=== PATIENT | male | born 1945 | race Caucasian/White ===

== ENCOUNTER → 2023-06-21 | Outpatient (CLI) | payer MEDICARE ==
[2023-06-21 11:44] LABS: Basophils # (A) 0.07 X 10*3/uL (0.00-0.10); Basophils % (A) 0.7 %; Eosinophils # (A) 0.33 X 10*3/uL (0.04-0.35); Eosinophils % (A) 3.4 %; HGB 13.4 g/dL (13.0-17.0); Lymphocytes # (A) 3.06 X 10*3/uL (0.90-5.00); Lymphocytes % (A) 31.2 %; MCH 27.5 pg (27.0-32.0); MCHC 31.9 g/dL (32.0-37.0); MCV 86.2 FL (80.0-97.0); Monocytes # (A) 0.84 X 10*3/uL (0.20-1.00); Monocytes % (A) 8.6 %; NRBC Per 100 WBC 0 X 10*3/uL (0.00-0.01); Neutrophils # (A) 5.46 X 10*3/uL (1.80-7.70); Neutrophils % (A) 55.6 %; Platelet Count 286 X 10*3/uL (140-440); RBC 4.87 X 10*6/uL (4.40-5.60); RDW 16.3 % (11.5-14.5); WBC 9.81 X 10*3/uL (4.50-10.00)
[2023-06-21 12:05] LABS: ALT 13 U/L (10-49); AST 17 U/L (14-35); Alkaline Phosphatase 105 U/L (41-126); BUN/Creat Ratio 26.71 Ratio (12.00-20.00); Blood Urea Nitrogen 18.7 mg/dL (9.0-27.0); Calcium 9.4 mg/dL (8.7-10.3); Chloride 103 mmol/L (96-109); Chol/HDL Ratio 2.05 Ratio; Globulin 2.1 g/dL (1.6-3.3); Glucose 100 mg/dL (70-110); LDL Cholesterol,Calculated 72.9 mg/dL (0.0-131.0); Potassium 4.1 mmol/L (3.5-5.5); Sodium 138 mmol/L (135-145); Total Bilirubin 0.4 mg/dL (0.3-1.2); Total Protein 6.1 g/dL (6.2-8.2); VLDL Calculation 18.66 mg/dL (5.00-40.00)
== END | disposition home or self-care (01) ==
LOC: LABWHC1 07:16
PROVIDERS: ATTEND Nurse Practitioner Family
DX: C84.00 Mycosis fungoides, unspecified site (principal)
CPT/HCPCS: 36415; 80053; 80061; 85025

== ENCOUNTER → 2024-02-29 | Outpatient (CLI) | payer MEDICARE ==
[2024-02-29 10:47] LABS: Basophils % (A) 1.1 %; Eosinophils # (A) 0.26 X 10*3/uL (0.04-0.35); Eosinophils % (A) 2.8 %; HCT 45.1 % (39.6-50.0); HGB 14.2 g/dL (13.0-17.0); Lymphocytes # (A) 2.57 X 10*3/uL (0.90-5.00); Lymphocytes % (A) 27.4 %; MCH 27.5 pg (27.0-32.0); MCHC 31.5 g/dL (32.0-37.0); MCV 87.4 FL (80.0-97.0); Mean Platelet Volume 10.2 FL (9.5-12.2); Monocytes # (A) 0.62 X 10*3/uL (0.20-1.00); Monocytes % (A) 6.6 %; NRBC Per 100 WBC 0 X 10*3/uL (0.00-0.01); Neutrophils # (A) 5.79 X 10*3/uL (1.80-7.70); Neutrophils % (A) 61.7 %; Platelet Count 213 X 10*3/uL (140-440); RBC 5.16 X 10*6/uL (4.40-5.60); RDW 16.8 % (11.5-14.5); WBC 9.38 X 10*3/uL (4.50-10.00)
[2024-02-29 10:52] LABS: ALT 11 U/L (10-49); AST 17 U/L (14-35); Albumin 4.3 g/dL (3.8-4.9); Albumin/Globulin Ratio 2.15 Ratio (1.60-3.17); Alkaline Phosphatase 104 U/L (41-126); Bilirubin, Conjugated <0.20 mg/dL (0.20-0.40); Bilirubin,Unconjugated >0.30 mg/dL (0.20-1.00); Chol/HDL Ratio 1.91 Ratio; LDL Cholesterol,Calculated 64.5 mg/dL (0.0-131.0); Total Bilirubin 0.5 mg/dL (0.3-1.2); Total Protein 6.3 g/dL (6.2-8.2); VLDL Calculation 16.14 mg/dL (5.00-40.00)
== END | disposition home or self-care (01) ==
LOC: LABWHC1 07:02
PROVIDERS: ATTEND Dermatology
CPT/HCPCS: 36415; 80061; 80076; 85025

== ENCOUNTER → 2024-06-11 | Outpatient (CLI) | payer MEDICARE ==
--- NOTE | 2024-06-11 14:00 | CTL ---
EXAMINATION TYPE: CT Low Dose Lung DATE OF EXAM: 06/11/2024 9:53 AM COMPARISON: Radiograph 06/02/2024 CLINICAL INDICATION: Male, 78 years old with history of Z12.2 SCREENING LUNG CA F17.241 CURRENT SMOKE R, h/o tobacco use pt states he has 3 cigarettes per day, History of tobacco use. Current smoker 20 p ack-year history TECHNIQUE: Low dose computed tomography scan was performed through the chest at 1 mm thick sections a nd reconstructed images in multiple planes at 1 mm and [address] DLP: 47.9 mGycm, CT CTDI: 1.4 mGy, Automated exposure control for dose reduction was used. CT DIAGNOSTIC QUALITY: Satisfactory FINDINGS: The heart is normal size with small anterior pericardial effusion. Three-vessel coronary artery calci fications are present. Ectatic ascending aorta 3.5 cm. [id number] atherosclerotic arch and descending thoracic aortic calcifications. No thoracic lymphadenopathy by size criteria. Multiple subpleural opacities some of which are more linear and some of which are more focal at the l benton bases. For example: * 7 mm posterior left lower lobe axial image 166. * 4 mm posterior left lower lobe axial image 183. 1.4 cm posterior left base axial image 258. * 1.6 cm posterior left base, axial image 257. * 1.2 cm posteromedial right lung base axial image 236. Additional pulmonary nodules include: * 4 mm posterior right upper lobe pulmonary nodule, axial image 40. * 5 mm anterior left midlung pulmonary nodule, axial image 104. * Irregular opacity posterior right midlung 1.1 cm, axial image 116. Suggestion of noncalcified left-sided pleural plaques measuring up to 1.8 cm wide, for example, axial image 106, 114, 119, and 135. There is moderate diffuse bronchial wall thickening and bibasilar bronchiectasis. Moderate emphysema. Visualized upper abdomen shows no gross abnormality. Bones: No osseous destructive process. IMPRESSION: 1. Lung RADS Category 4B (very suspicious, >15% chance of malignancy); scattered pulmonary nodules, f ocal subpleural opacities, and some left-sided pleural plaques measuring up to 1.8 cm. Short interval follow-up advised. The presence of pleural plaques may indicate prior asbestos exposure. 2. COPD with moderate to advanced emphysema, bibasilar pleural parenchymal scarring and bibasilar bro nchiectasis. Recommend smoking cessation. 3. Three-vessel coronary artery calcifications. CT LUNG RAD AND CT CHEST RECOMMENDATION: Lung-Rad 4B or 4X Very Suspicious: Follow-up Chest CT with o r without contrast or PET/CT and/or tissue sampling. PET/CT may be used when there is a > 8 mm solid component. S Modifier (other clinically significant findings): None [facility], , 06/11/2024 1:58 PM
== END | disposition home or self-care (01) ==
LOC: RADCTMAIN 09:07
PROVIDERS: ATTEND Internal Medicine
DX: Z12.2 Encounter for screening for malignant neoplasm of respiratory organs (principal); J44.9 Chronic obstructive pulmonary disease, unspecified; J43.9 Emphysema, unspecified; F17.210 Nicotine dependence, cigarettes, uncomplicated; J47.9 Bronchiectasis, uncomplicated; I25.10 Atherosclerotic heart disease of native coronary artery without angina pectoris
CPT/HCPCS: 71271

== ENCOUNTER 2024-08-13 04:43 | Inpatient (IN) | payer MEDICARE ==
--- NOTE | 2024-08-13 05:37 | ED ---
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 History is limited by acuity of condition. States has had about a week of lower abdominal pain that suddenly worsened this morning and became focused on the lower abdomen. Denies N/V/Diarrhea. Has been having regular BMs. No fevers or chills. No chest pain or SHAZIA. No prior surgical hx. - Related Data Home Medications Medication Instructions Recorded Confirmed Acitretin [Soriatane] 25 mg PO MOWEFR 08/13/24 08/13/24 Albuterol Sulfate [Albuterol 2 puff INHALATION RT-QID PRN 08/13/24 08/13/24 Sulfate Hfa] Ezetimibe [Zetia] 10 mg PO DAILY 08/13/24 08/13/24 Fluticasone Propion/Salmeterol 1 puff INHALATION RT-BID 08/13/24 08/13/24 [Fluticasone-Salmeterol 250-50] Losartan/Hydrochlorothiazide 1 tab PO DAILY 08/13/24 08/13/24 [Hyzaar 100-12.5 Tablet] Tamsulosin [Flomax] 0.4 mg PO DAILY 08/13/24 08/13/24 Theophylline 12 Hour [Sorin-Dur] 300 mg PO BID 08/13/24 08/13/24 Tiotropium [place] [Spiriva] 1 puff INHALATION RT-DAILY 08/13/24 08/13/24 atenoloL [Tenormin] 12.5 mg PO DAILY 08/13/24 08/13/24 predniSONE 5 mg PO DAILY 08/13/24 08/13/24 Allergies Allergy/AdvReac Type Severity Reaction Status Date / Time No Known Allergies Allergy Verified 08/13/24 09:57 Review of Systems ROS Statement: Those systems with pertinent positive or pertinent negative responses have been documented in the HPI. ROS Other: All systems not noted in ROS Statement are negative. Past Medical History Past Medical History: Cancer, COPD History of Any Multi-Drug Resistant Organisms: None Reported Past Surgical History: Tonsillectomy Additional Past Surgical History / Comment(s): Deviated Septum Repair in the Past Psychological History: No Psychological Hx Reported Smoking Status: Light tobacco smoker Past Alcohol Use History: None Reported Past Drug Use History: None Reported General Exam - General Exam Comments Initial Comments: PE: CONSTITUTIONAL: No apparent distress, ill appearing SKIN: Warm, dry, no jaundice, hives or petechiae EYES: Pupils are equally round, extraocular movements intact without nystagmus, clear conjunctiva, non-icteric sclera HENT: Normocephalic, atraumatic, moist mucus membranes, oropharynx clear without exudates NECK: , Full range of motion, normal appearance PULMONARY: Clear to auscultation without wheezes, rhonchi, or rales, normal excursion, no accessory muscle use and no stridor CARDIOVASCULAR: Regular rate, rhythm, normal S1 and S2. No appreciated murmurs, rubs or gallops. Strong radial and DP pulses with intact distal perfusion. No lower extremity edema GASTROINTESTINAL: Firm, hypoactive bowel sounds, pulsatile abdominal mass to the left, TTP GENITOURINARY: MUSCULOSKELETAL: Extremities have no gross deformity, no edema, redness, or swelling. No calf swelling NEUROLOGIC:_a/o x 3, GCS 15, normal mentation and speech. Moves all extremities x 4 without motor or sensory deficit PSYCHIATRIC:_normal mood and affect, thought process is clear and linear Limitations: no limitations Course Vital Signs 08/13/24 08/13/24 08/13/24 04:44 05:34 05:59 Temperature 97.4 F L Pulse Rate 90 98 92 Respiratory 20 17 Rate Blood Pressure 119/79 125/97 122/94 O2 Sat by Pulse 93 L 95 96 Oximetry 08/13/24 08/13/24 08/13/24 06:15 06:20 06:25 Temperature Pulse Rate 96 100 96 Respiratory 17 17 16 Rate Blood Pressure 57/40 74/47 89/55 O2 Sat by Pulse 99 98 96 Oximetry 08/13/24 08/13/24 08/13/24 06:34 06:39 06:50 Temperature 96.5 F L Pulse Rate 92 84 Respiratory 17 16 Rate Blood Pressure 62/42 77/59 O2 Sat by Pulse 96 95 Oximetry 08/13/24 08/13/24 06:52 06:57 Temperature Pulse Rate 98 98 Respiratory 17 16 Rate Blood Pressure 80/59 92/67 O2 Sat by Pulse 98 Oximetry - Reevaluation(s) Reevaluation #1: Bedside ultrasound showed concerns for ruptured AAA, CT angio of the abdomen pelvis was ordered, Dr. Paulson was contacted, he is aware of patient and on his way 08/13/24 19:44 Reevaluation #2: Patient on esmolol drip, had episode hypotension, 2 units PRBCs at O- ordered. 08/13/24 06:30 EKG Findings - EKG Comments: EKG Findings:: Sinus rhythm, artifact present limiting interpretation, normal axis, normal intervals, no clear ST elevations or depressions, no arrhythmia Medical Decision Making - Medical Decision Making Was pt. sent in by a medical professional or institution (, PA, VISUAL INSPECTOR, urgent care, hospital, or [facility]...) When possible be specific @ -No Did you speak to anyone other than the patient for history (EMS, parent, family, police, friend...)? What history was obtained from this source @ -No Did you review nursing and triage notes (agree or disagree)? Why? @ -I reviewed and agree with nursing and triage notes Were old charts reviewed (outside hosp., previous admission, EMS record, old EKG, old radiological studies, urgent care reports/EKG's, [facility] records)? Report findings @ -Medical records were not reviewed Differential Diagnosis (chest pain, altered mental status, abdominal pain women, abdominal pain men, vaginal bleeding, weakness, fever, dyspnea, syncope, headache, dizziness, GI bleed, back pain, seizure, CVA, palpatations, mental health, musculoskeletal)? @Differential Abdominal Pain Men: Appendicitis, cholecystitis, diverticulosis, ischemic bowel, pancreatitis, hepatitis, UTI, gastroenteritis, AAA, incarcerated hernia, bowel obstruction, constipation, inflammatory bowel, hepatitis, peptic ulcer disease, splenic infarction, perforated viscus, testicular torsion, this is not meant to be an all-inclusive list EKG interpreted by me (3pts min.). @ -As above X-rays interpreted by me (1pt min.). @ -None done CT interpreted by me (1pt min.). @I personally reviewed CTA, appears to show ruptured abdominal aortic aneurysm I agree with radiologist interpretation U/S interpreted by me (1pt. min.). @ -None done What testing was considered but not performed or refused? (CT, X-rays, U/S, labs)? Why? @ -None What meds were considered but not given or refused? Why? @Phenylephrine and norepinephrine were considered for further blood pressure support related to triggering on however after further discussion with Dr. Paulson these were held Did you discuss the management of the patient with other professionals (professionals i.e. , PA, VISUAL INSPECTOR, lab, RT, psych nurse, social sciences department chair, test engine operator, te acher, loan workout officer, pillowcase sewer)? Give summary Case discussed w/ Dr. Paulson, Vacular surgery, recommended esmolol gtt with goal HR <100, arrived to ED shortly after page, took patient to OR for repair 2 was smoking cessation discussed for >3mins.? @ -No Was critical care preformed (if so, how long)? @ -Yes 45 minutes Were there social determinants of health that impacted care today? How? (Ho melessness, low income, unemployed, alcoholism, drug addiction, transportation, low edu. Level, literacy, decrease access to med. care, fdc, rehab)? @ -No Was there de-escalation of care discussed even if they declined (Discuss DNR or withdrawal of care, Hospice)? @no What co-morbidities impacted this encounter? (DM, HTN, Smoking, COPD, CAD, Cancer, CVA, ARF, Chemo, Hep., AIDS, mental health diagnosis, sleep apnea, morbid obesity)? @ -None Was patient admitted / discharged? Hospital course, mention meds given and route, prescriptions, significant lab abnormalities, going to OR and other pert inent info. 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 On my evaluation patient has visible puslatile abdominal mass. Bedside ultrasound showed likely ruptured triple A. Vascular surgery was paged immediately, CTA was ordered and patient moved to trauma bay. CT showed likely ruptured triple A. Patient started on esmolol gtt and had episode of hypotension. Pt bolused IV fluids and 2 units PRBCs out of concern for hemorrhagic shock. Updated pt and son to findings and ongoing plan of care with anticipated arrival of vascular surgeon. Dr. Paulson arrived shortly after and took patient to OR for emergent endovascular repair. Case discussed with DORA García and Dr. Cowan ICU, patient accepted for admission to ICU. Undiagnosed new problem with uncertain prognosis? @ -No Drug Therapy requiring intensive monitoring for toxicity (Heparin, Nitro, Insulin, Cardizem)? yes esmolol Were any procedures done? @ -No Diagnosis/symptom? @Ruptured AAA Acute, or Chronic, or Acute on Chronic? @ -acute Uncomplicated (without systemic symptoms) or Complicated (systemic symptoms)? @complicated Side effects of treatment? @ -No Exacerbation, Progression, or Severe Exacerbation? @ -No Poses a threat to life or bodily function? How? (Chest pain, [place], [place], pneumonia, PE, COPD, DKA, ARF, appy, cholecystitis, CVA, Diverticulitis, Homicidal, Suicidal, threat to staff... and all critical care pts) @Yes - Lab Data Result diagrams: 08/13/24 18:05 08/13/24 10:19 Lab Results 08/13/24 08/13/24 08/13/24 Range/Units 05:45 05:45 05:45 WBC 15.6 H (3.8-10.6) k/uL RBC 4.46 (4.30-5.90) m/uL Hgb 11.8 L (13.0-17.5) gm/dL Hct 37.9 L (39.0-53.0) % MCV 85.0 (80.0-100.0) fL MCH 26.5 (25.0-35.0) pg MCHC 31.1 (31.0-37.0) g/dL RDW 14.5 (11.5-15.5) % Plt Count 421 (150-450) k/uL MPV 7.6 Neutrophils % 87 % Lymphocytes % 8 % Monocytes % 4 % Eosinophils % 1 % Basophils % 0 % Neutrophils # 13.5 H (1.3-7.7) k/uL Lymphocytes # 1.3 (1.0-4.8) k/uL Monocytes # 0.6 (0-1.0) k/uL Eosinophils # 0.1 (0-0.7) k/uL Basophils # 0.0 (0-0.2) k/uL Hypochromasia Slight PT 11.6 (10.0-12.5) sec INR 1.1 (<1.2) APTT 22.7 (22.0-30.0) sec Sodium 135 L (137-145) mmol/L Potassium 4.0 (3.5-5.1) mmol/L Chloride 101 (98-107) mmol/L Carbon Dioxide 24 (22-30) mmol/L Anion Gap 10 mmol/L BUN 23 H (9-20) mg/dL Creatinine 0.45 L (0.66-1.25) mg/dL Est GFR (CKD-EPI)AfAm >90 (>60 ml/min/1.73 sqM) Est GFR (CKD-EPI)NonAf >90 (>60 ml/min/1.73 sqM) Glucose 182 H (74-99) mg/dL Plasma Lactic Acid Osman (0.7-2.0) mmol/L Calcium 8.9 (8.4-10.2) mg/dL Total Bilirubin 0.7 (0.2-1.3) mg/dL AST 18 (17-59) U/L ALT 12 (4-49) U/L Alkaline Phosphatase 87 (38-126) U/L Troponin I (0.000-0.034) ng/mL Total Protein 6.0 L (6.3-8.2) g/dL Albumin 3.4 L (3.5-5.0) g/dL Amylase 34 (30-110) U/L Lipase 30 (23-300) U/L Blood Type Blood Type Confirm Blood Type Recheck Bld Type Recheck Status Antibody Screen Crossmatch Spec Expiration Date 08/13/24 08/13/24 08/13/24 Range/Units 05:45 05:45 05:45 WBC (3.8-10.6) k/uL RBC (4.30-5.90) m/uL Hgb (13.0-17.5) gm/dL Hct (39.0-53.0) % MCV (80.0-100.0) fL MCH (25.0-35.0) pg MCHC (31.0-37.0) g/dL RDW (11.5-15.5) % Plt Count (150-450) k/uL MPV Neutrophils % % Lymphocytes % % Monocytes % % Eosinophils % % Basophils % % Neutrophils # (1.3-7.7) k/uL Lymphocytes # (1.0-4.8) k/uL Monocytes # (0-1.0) k/uL Eosinophils # (0-0.7) k/uL Basophils # (0-0.2) k/uL Hypochromasia PT (10.0-12.5) sec INR (<1.2) APTT (22.0-30.0) sec Sodium (137-145) mmol/L Potassium (3.5-5.1) mmol/L Chloride (98-107) mmol/L Carbon Dioxide (22-30) mmol/L Anion Gap mmol/L BUN (9-20) mg/dL Creatinine (0.66-1.25) mg/dL Est GFR (CKD-EPI)AfAm (>60 ml/min/1.73 sqM) Est GFR (CKD-EPI)NonAf (>60 ml/min/1.73 sqM) Glucose (74-99) mg/dL Plasma Lactic Acid Osman 1.8 (0.7-2.0) mmol/L Calcium (8.4-10.2) mg/dL Total Bilirubin (0.2-1.3) mg/dL AST (17-59) U/L ALT (4-49) U/L Alkaline Phosphatase (38-126) U/L Troponin I <0.012 (0.000-0.034) ng/mL Total Protein (6.3-8.2) g/dL Albumin (3.5-5.0) g/dL Amylase (30-110) U/L Lipase (23-300) U/L Blood Type Blood Type Confirm B Positive Blood Type Recheck Bld Type Recheck Status Antibody Screen Crossmatch Spec Expiration Date 08/13/24 Range/Units 05:50 WBC (3.8-10.6) k/uL RBC (4.30-5.90) m/uL Hgb (13.0-17.5) gm/dL Hct (39.0-53.0) % MCV (80.0-100.0) fL MCH (25.0-35.0) pg MCHC (31.0-37.0) g/dL RDW (11.5-15.5) % Plt Count (150-450) k/uL MPV Neutrophils % % Lymphocytes % % Monocytes % % Eosinophils % % Basophils % % Neutrophils # (1.3-7.7) k/uL Lymphocytes # (1.0-4.8) k/uL Monocytes # (0-1.0) k/uL Eosinophils # (0-0.7) k/uL Basophils # (0-0.2) k/uL Hypochromasia PT (10.0-12.5) sec INR (<1.2) APTT (22.0-30.0) sec Sodium (137-145) mmol/L Potassium (3.5-5.1) mmol/L Chloride (98-107) mmol/L Carbon Dioxide (22-30) mmol/L Anion Gap mmol/L BUN (9-20) mg/dL Creatinine (0.66-1.25) mg/dL Est GFR (CKD-EPI)AfAm (>60 ml/min/1.73 sqM) Est GFR (CKD-EPI)NonAf (>60 ml/min/1.73 sqM) Glucose (74-99) mg/dL Plasma Lactic Acid Osman (0.7-2.0) mmol/L Calcium (8.4-10.2) mg/dL Total Bilirubin (0.2-1.3) mg/dL AST (17-59) U/L ALT (4-49) U/L Alkaline Phosphatase (38-126) U/L Troponin I (0.000-0.034) ng/mL Total Protein (6.3-8.2) g/dL Albumin (3.5-5.0) g/dL Amylase (30-110) U/L Lipase (23-300) U/L Blood Type B Positive Blood Type Confirm Blood Type Recheck No Previous Record Bld Type Recheck Status CABO Indicated Antibody Screen NEGATIVE Crossmatch See Detail Spec Expiration Date 08/16/20242356 Disposition Clinical Impression: Ruptured abdominal aortic aneurysm (AAA) Disposition: ADMITTED IP TO THIS [facility] Condition: Critical
[2024-08-13] MEDS: MORPHINE SULFATE 4 MG/ML SYRINGE IVP STA (05:44)
[2024-08-13] MEDS: ONDANSETRON 4 MG/2 ML VIAL IVP STA (05:44)
[2024-08-13 05:51] LABS: Basophils % (A) 0 %; Eosinophils # (A) 0.1 k/uL (0-0.7); Eosinophils % (A) 1 %; HCT 37.9 % (39.0-53.0); HGB 11.8 gm/dL (13.0-17.5); Hypochromasia Slight; Lymphocytes # (A) 1.3 k/uL (1.0-4.8); Lymphocytes % (A) 8 %; MCH 26.5 pg (25.0-35.0); MCHC 31.1 g/dL (31.0-37.0); Mean Platelet Volume 7.6; Monocytes # (A) 0.6 k/uL (0-1.0); Monocytes % (A) 4 %; Neutrophils # (A) 13.5 k/uL (1.3-7.7); Neutrophils % (A) 87 %; Platelet Count 421 k/uL (150-450); RBC 4.46 m/uL (4.30-5.90); RDW 14.5 % (11.5-15.5); WBC 15.6 k/uL (3.8-10.6)
[2024-08-13] MEDS: LACTATED RINGERS 1,000 ML IV ONE (05:59)
[2024-08-13 06:00] LABS: ALT 12 U/L (4-49); AST 18 U/L (17-59); African American GFR (CKD) >90 (>60 ml/min/1.73 sqM); Albumin 3.4 g/dL (3.5-5.0); Alkaline Phosphatase 87 U/L (38-126); Amylase 34 U/L (30-110); Anion Gap 10 mmol/L; Blood Urea Nitrogen 23 mg/dL (9-20); Calcium 8.9 mg/dL (8.4-10.2); Carbon Dioxide 24 mmol/L (22-30); Chloride 101 mmol/L (98-107); Glucose 182 mg/dL (74-99); Lipase 30 U/L (23-300); Non-African American GFR(CKD) >90 (>60 ml/min/1.73 sqM); Sodium 135 mmol/L (137-145); Total Bilirubin 0.7 mg/dL (0.2-1.3)
[2024-08-13] MEDS: HYDROmorphone 1 MG/ML 1 ML SYRINGE IVP STA (06:12)
[2024-08-13] MEDS: ESMOLOL IN SODIUM CHLORIDE PMX 2.5 GM in SALINE 1 250ML.BAG IV SCH (06:16)
[2024-08-13 06:18] LABS: INR 1.1 (<1.2); Partial Thromboplastin Time 22.7 sec (22.0-30.0); Prothrombin Time 11.6 sec (10.0-12.5)
--- NOTE | 2024-08-13 06:32 | CT ---
EXAM: CT Chest Without and With Intravenous Contrast CLINICAL HISTORY: ITS.REASON CT Reason: ruptured triple A TECHNIQUE: Axial computed tomographic images of the chest without and with intravenous contrast. This CT exam was performed using one or more of the following dose reduction techniques: automated exposure control, adjustment of the mA and/or kV according to patient size, and/or use of iterative reconstruction technique. COMPARISON: No relevant prior studies available. FINDINGS: Trachea: Debris within the trachea which may relate to infection/aspiration changes. Pulmonary arteries: No evidence of pulmonary embolism within the pulmonary outflow tract or proximal branches. Aorta: No evidence of aortic aneurysm within the chest or subsequent branches. Lungs: Prominent bronchiectasis noted within the lungs, most notably within the lower lobes. Severe upper lobe prominent centrilobular emphysema. Patient may qualify for low-dose lung cancer screening CTs. Left lower lobe granuloma. No consolidation. Pleural space: Unremarkable. No significant effusion. No pneumothorax. Heart: Coronary artery calcifications. No cardiomegaly. No significant pericardial effusion. No evidence of RV dysfunction. Bones/joints: No acute fracture. No dislocation. Soft tissues: Unremarkable. Lymph nodes: Unremarkable. No enlarged lymph nodes. IMPRESSION: 1. No evidence of aortic aneurysm within the chest or subsequent branches. 2. Severe upper lobe prominent centrilobular emphysema. Patient may qualify for low-dose lung cancer screening CTs. 3. No other acute findings. 4. Incidental findings as described. EXAM: CT Abdomen and Pelvis With Runoff to the Lower Extremities With Intravenous Contrast CLINICAL HISTORY: ITS.REASON CT Reason: ruptured triple A TECHNIQUE: Axial computed tomographic images of the abdomen, pelvis and lower extremities with intravenous contrast. CTDI is 100 mGy and DLP is 1074.2 mGy-cm. This CT exam was performed using one or more of the following dose reduction techniques: automated exposure control, adjustment of the mA and/or kV according to patient size, and/or use of iterative reconstruction technique. COMPARISON: No relevant prior studies available. FINDINGS: VASCULATURE: Aorta: Infrarenal abdominal aortic aneurysm measuring 11.4 x 11.8 cm in luminal cross-sectional diameter with prominent concentric atherosclerotic plaque and adjacent stranding. Findings are favored to relate to rupture given large hematoma in the right retroperitoneal space. Recommend urgent surgical consultation. No dissection. Celiac trunk and mesenteric arteries: No acute findings. No occlusion or significant stenosis. Renal arteries: No acute findings. No occlusion or significant stenosis. Right iliac arteries: No acute findings. No occlusion or significant stenosis. Right femoral/popliteal arteries: Nondiagnostic. Right calf/foot arteries: Nondiagnostic. Left iliac arteries: No acute findings. No occlusion or significant stenosis. Left femoral/popliteal arteries: Nondiagnostic. Left calf/foot arteries: Nondiagnostic. Lung bases: No evidence of pulmonary embolism within the pulmonary outflow tract or proximal branches. Prominent bronchiectasis noted within the lungs, most notably within the lower lobes. Severe upper lobe prominent centrilobular emphysema. Patient may qualify for low-dose lung cancer screening CTs. Left lower lobe granuloma. No consolidation. Heart: Coronary artery calcifications. Mediastinum: Debris within the trachea which may relate to infection/aspiration changes. ABDOMEN: Liver: Unremarkable. No mass. Gallbladder and bile ducts: Unremarkable. No calcified stones. No ductal dilation. Pancreas: Unremarkable. No ductal dilation. No mass. Spleen: Unremarkable. No splenomegaly. Adrenals: Unremarkable. No mass. Kidneys and ureters: Unremarkable. No hydronephrosis. No solid mass. Stomach and bowel: No evidence of bowel obstruction. No mucosal thickening. PELVIS: Appendix: No findings to suggest acute appendicitis. Bladder: Unremarkable. No mass. Reproductive: Unremarkable as visualized. ABDOMEN, PELVIS and LOWER EXTREMITIES: Intraperitoneal space: Mild dependent free fluid noted in the pelvis which appears to be simple in nature with additional simple mesenteric ascites. No free air. Bones/joints: Contrast-enhanced imaging was only obtained to the level of the knees with noncontrast imaging extending to the ankles. This limits evaluation of the lower extremities. Degenerative changes in the spine. No acute fracture. No dislocation. Soft tissues: Unremarkable. Lymph nodes: Unremarkable. No enlarged lymph nodes. Other findings: Mild celiac axis ostial stenosis. IMPRESSION: 1. Contrast-enhanced imaging was only obtained to the level of the knees with noncontrast imaging extending to the ankles. This limits evaluation of the lower extremities. 2. Infrarenal abdominal aortic aneurysm measuring 11.4 x 11.8 cm in luminal cross-sectional diameter with prominent concentric atherosclerotic plaque and adjacent stranding. Findings are favored to relate to rupture given large hematoma in the right retroperitoneal space. Recommend urgent surgical consultation. 3. Mild dependent free fluid noted in the pelvis which appears to be simple in nature with additional simple mesenteric ascites. 4. Severe upper lobe prominent centrilobular emphysema. Patient may qualify for low-dose lung cancer screening CTs. 5. No other acute findings. 6. Incidental findings as described. <MYCVCSECTION> Communications: 08/13/24 06:35 Call Doctor Regarding Above results, called Dr. Amaya on 08/13 06:35 (-04:00)
[2024-08-13] MEDS ORDERED: NALOXONE 0.4 MG/ML 1 ML VIAL IV PRN (06:51)
[2024-08-13] MEDS ORDERED: MORPHINE SULFATE 4 MG/ML SYRINGE IV PRN (06:51)
[2024-08-13] MEDS ORDERED: Magnesium Replacement Protocol 1 EACH MISC MISCELLANE PRN (06:51)
[2024-08-13] MEDS ORDERED: Potassium Replacement Protocol 1 EACH MISC MISCELLANE PRN (06:51)
[2024-08-13] MEDS ORDERED: LORazepam 2 MG/ML INJ IV PRN (06:51)
[2024-08-13] MEDS ORDERED: Phosphorus Replacement Protoco 1 EACH MISC MISCELLANE PRN (06:51)
[2024-08-13] MEDS ORDERED: VASOPRESSIN 20 UNIT/ML 1 ML VIAL ONE (07:00)
[2024-08-13] MEDS ORDERED: EPINEPHrine 10 ML SYRINGE (0.1 MG/ML) ONE (07:00)
[2024-08-13] MEDS ORDERED: MIDAZOLAM 2 MG/2 ML VIAL ONE (07:00)
[2024-08-13] MEDS ORDERED: PHENYLEPHRINE 10 MG/ML VIAL ONE (07:00)
[2024-08-13] MEDS ORDERED: ESMOLOL 100 MG/10 ML VIAL ONE (07:00)
[2024-08-13] MEDS ORDERED: ALBUMIN HUMAN 5% (25gm) 500 ML VIAL IVPB ONE (07:00)
[2024-08-13] MEDS ORDERED: HEPARIN SODIUM,PORCINE 5,000 UNIT/ML 1 ML VIAL ONE (07:00)
--- NOTE | 2024-08-13 07:07 | P.GSHP ---
History of Present Illness H&P Date: 08/13/24 Chief Complaint: abdominal and back pain 78-year-old gentleman with history of COPD, ascending aortic aneurysm presented to the emergency department with acute onset abdominal pain and back pain. When evaluated in the emergency department he had an ultrasound that demonstrated possible/probable ruptured AAA with pulsatile mass noted. He underwent CTA which demonstrated a large 11.8 cm aneurysm with stranding concerning for rupture. He presents to the [facility] emergently for endovascular aortic repair possible open. He was placed on a small drip to maintain blood pressure around 80-100. Is also transfuse 1 unit of blood. - Review of Systems All systems: negative (Negative unless mentioned in the HPI or past medical history) Past Medical History Past Medical History: Cancer, COPD History of Any Multi-Drug Resistant Organisms: None Reported Past Surgical History: Tonsillectomy Additional Past Surgical History / Comment(s): Deviated Septum Repair in the s Past Psychological History: No Psychological Hx Reported Smoking Status: Light tobacco smoker Past Alcohol Use History: None Reported Past Drug Use History: None Reported Medications and Allergies Allergies Allergy/AdvReac Type Severity Reaction Status Date / Time No Known Allergies Allergy Verified 08/13/24 04:53 Surgical - Exam Vital Signs Temp Pulse Resp BP Pulse Ox 97.4 F L 90 20 119/79 93 L 08/13/24 04:44 08/13/24 04:44 08/13/24 04:44 08/13/24 04:44 08/13/24 04:44 Patient Seen Date: 08/13/24 Patient Seen Time: 06:30 - General well developed, well nourished, moderate distress - Eyes PERRL, normal ocular movement - ENT normal pinna - Neck no masses - Respiratory normal expansion - Cardiovascular Rhythm: regular - Abdomen Distended, tender to palpation. Pulsatile mass noted - Integumentary no rash - Neurologic normal coordination, normal sensation - Psychiatric oriented to time, oriented to person, oriented to place, speech is normal Palpable femoral pulses bilaterally Results CTA demonstrates large 11.8 cm ruptured AAA with stranding on the lateral aspect. No contrast extravasation noted - Labs 08/13/24 05:45 08/13/24 05:45 Abnormal Lab Results - Last 24 Hours (Table) 08/13/24 08/13/24 08/13/24 Range/Units 05:45 05:45 05:50 WBC 15.6 H (3.8-10.6) k/uL Hgb 11.8 L (13.0-17.5) gm/dL Hct 37.9 L (39.0-53.0) % Neutrophils # 13.5 H (1.3-7.7) k/uL Sodium 135 L (137-145) mmol/L BUN 23 H (9-20) mg/dL Creatinine 0.45 L (0.66-1.25) mg/dL Glucose 182 H (74-99) mg/dL Total Protein 6.0 L (6.3-8.2) g/dL Albumin 3.4 L (3.5-5.0) g/dL Crossmatch See Detail Diabetes panel 08/13/24 Range/Units 05:45 Sodium 135 L (137-145) mmol/L Potassium 4.0 (3.5-5.1) mmol/L Chloride 101 (98-107) mmol/L Carbon Dioxide 24 (22-30) mmol/L BUN 23 H (9-20) mg/dL Creatinine 0.45 L (0.66-1.25) mg/dL Glucose 182 H (74-99) mg/dL Calcium 8.9 (8.4-10.2) mg/dL AST 18 (17-59) U/L ALT 12 (4-49) U/L Alkaline Phosphatase 87 (38-126) U/L Total Protein 6.0 L (6.3-8.2) g/dL Albumin 3.4 L (3.5-5.0) g/dL Calcium panel 08/13/24 Range/Units 05:45 Calcium 8.9 (8.4-10.2) mg/dL Albumin 3.4 L (3.5-5.0) g/dL Pituitary panel 08/13/24 Range/Units 05:45 Sodium 135 L (137-145) mmol/L Potassium 4.0 (3.5-5.1) mmol/L Chloride 101 (98-107) mmol/L Carbon Dioxide 24 (22-30) mmol/L BUN 23 H (9-20) mg/dL Creatinine 0.45 L (0.66-1.25) mg/dL Glucose 182 H (74-99) mg/dL Calcium 8.9 (8.4-10.2) mg/dL Adrenal panel 08/13/24 Range/Units 05:45 Sodium 135 L (137-145) mmol/L Potassium 4.0 (3.5-5.1) mmol/L Chloride 101 (98-107) mmol/L Carbon Dioxide 24 (22-30) mmol/L BUN 23 H (9-20) mg/dL Creatinine 0.45 L (0.66-1.25) mg/dL Glucose 182 H (74-99) mg/dL Calcium 8.9 (8.4-10.2) mg/dL Total Bilirubin 0.7 (0.2-1.3) mg/dL AST 18 (17-59) U/L ALT 12 (4-49) U/L Alkaline Phosphatase 87 (38-126) U/L Total Protein 6.0 L (6.3-8.2) g/dL Albumin 3.4 L (3.5-5.0) g/dL Assessment and Plan Assessment: Acute ruptured infrarenal AAA Hemorrhagic shock COPD Plan: Reviewed CTA with the patient and his family in full detail which demonstrates large aneurysm and pending rupture/stranding with small rupture noted. It does seem to be amendable to endovascular aortic repair and therefore we will attempt to repair percutaneously in the [facility] with the possibility of open AAA repair which was discussed with the patient who is agreeable. All risks and benefits were discussed with the patient as well as complications including , organ failure, ischemic changes to his lower extremities and need for further surgery. To the [facility] emergently for endovascular aortic repair.
[2024-08-13] MEDS: LIDOCAINE 1% INJ 10MG/ML (20 ML MDV) SQ ONE (07:20)
[2024-08-13] MEDS: IOPAMIDOL-300 100ML BTL INJ ONE (09:15)
--- NOTE | 2024-08-13 09:35 | P.OP ---
Date of Procedure: 08/13/24 Description of Procedure: Date: 08/13/2024 Preoperative diagnosis: Ruptured 12.5 cm infrarenal abdominal aortic aneurysm, hemorrhagic shock Postoperative diagnosis: Same Procedure: Percutaneous Endovascular aortic repair with AFX II device under ultrasound guided access Percutaneous transluminal balloon angioplasty of bilateral common iliac arteries Percutaneous transluminal covered stent placement of bilateral common iliac arteries due to severe stenosis Percutaneous closure of bilateral femoral arteries, right Perclose x 2 and left Angio-Seal Surgeon: Matias Paulson DO Glass Designer: none Anesthesia: GETA EBL: 30 cc Complications: None Condition: Stable Disposition: Palpable femoral pulses Findings: Large infrarenal AAA with active rupture. Severe tortuosity of the left common iliac with dense calcific stenosis greater than 80% Indication for procedure: 78-year-old gentleman presented to the emergency department secondary to acute onset abdominal and back pain. Was found to have a ruptured AAA on ultrasound and CT angiogram. After discussion with the patient and discussion of all risks and benefits and review of his CT angiogram it was determined that he would be a candidate for percutaneous repair. He presents for such repair. Operative Narrative: After written and informed consent was obtained the patient all risks benefits and complications were described the patient is brought to the Quotation [facility] and laid in the supine position. The area of the groins were prepped and draped in usual sterile fashion after appropriate anesthetic was performed per the anesthesiologist. A timeout was performed in normal fashion antibiotics were administered prior to accessed. Under ultrasound guidance bilateral common femoral arteries were accessed and utilizing Seldinger technique a 7-Sammarinese sheath was placed in the left common femoral artery and 2 Perclose closure devices were placed in the right femoral artery followed by an 8-Sammarinese sheath. 035 Glidewire was then placed through the 8-Sammarinese sheath and replaced with a stiff Lunderquist wire through a comfy catheter. 035 guidewire was then placed in the 7-Sammarinese sheath followed by pigtail catheter above the renal arteries at approximately L1-L2 vertebra level. Guidewire was removed and aortogram was obtained. The patient was then administered heparin and followed with serial ACTs for appropriate heparinization. The 8-Sammarinese sheath was then removed and 19-Sammarinese AFX introducer sheath was guided over the stiff wire to the area above the bifurcation. A 8 x 120 mm x 20 to 40 mm limbs AFX2 bifurcated device was then guided onto the stiff wire. The contralateral wire was then placed and through the 7-Sammarinese sheath it was then snared and brought out to the contralateral 7-Sammarinese sheath. The main body of the AFX was then advanced to above the bifurcation in normal fashion and deployed above the bifurcation ultimately then pulled down to the bifurcation. Once main body was deployed attention was then placed to the contralateral limb which was deployed by removing the yellow loop cover. A pigtail catheter was then placed over the wire and the contralateral wire was unlocked with the pigtail catheter. Pigtail catheter was then placed above the renal arteries. The ipsilateral limb was then obtained and the inner core and retracting AFX introducer sheath to deployed the ipsilateral limb. This inner deployment was removed and the obturator was placed and the sheath was then advanced through the above the renal arteries. A 34 x 100 mm suprarenal AFX Bridges cuff was then deployed beneath the renal arteries once landing zone was visualized. Once completed the deployment sheath was removed and a Q50 balloon was placed through the AFX introducer sheath and the overlap was ballooned. The pigtail catheter was then withdrawn and placed within the Bridges cuff in usual fashion. Final angiogram was obtained demonstrating good seal with no evidence of endoleak. Due to the severe tortuosity and calcific disease in the common iliac artery balloon angioplasty was performed with two 8 x 40 mm balloons. After balloon angioplasty the stenosis was still severe and therefore two 9 x 59 mm iCAST covered stents were deployed at the bifurcation extending to the internal iliac artery takeoff bilaterally. Final angiogram was obtained demonstrating brisk flow through the aortic graft and bilateral iliacs with both internal iliac arteries filling and down to the common femoral arteries. All guidewires and catheters were then removed and the Perclose closure device was utilized for hemostasis for the ipsilateral femoral artery. A Vascade was then placed through the 7-Sammarinese sheath for hemostasis in normal fashion. Once hemostatic the areas were then cleansed and dressings were placed. The patient tolerated the procedure well and had [] pulses at the conclusion of the procedure. He was then sent to PACU for recovery.
[2024-08-13 09:50] LABS: Glucose,Whole Blood 240 mg/dL (70-110)
[2024-08-13] MEDS ORDERED: NALOXONE 0.4 MG/ML 1 ML VIAL IVP PRN (09:59)
--- NOTE | 2024-08-13 10:07 | IR ---
EXAMINATION TYPE: IR stent intravas non coronary DATE OF EXAM: 08/13/2024 9:40 AM COMPARISON: Pre Operative Images if available both CT/MRI or plain film CLINICAL INDICATION: Male, 78 years old with history of AAA repair, 49.6m/305DAP, Bilateral gr closur es perclose a; TECHNIQUE: IR stent intravas non coronary, multiple fluoroscopic images provided for procedure. DAP: 305 mGym2 Gycm2 uGym2 cGycm2 or equivalent. FINDINGS: IMPRESSION: 1. Report was generated for administrative purposes only. 2. Please see the operative/procedural note for further details. [facility], , 08/13/2024 10:04 AM
--- NOTE | 2024-08-13 10:27 | P.ANPRN ---
Procedure Note - Anesthesia - Invasive Line Left Arterial Line Time Out Performed: Yes Date of Procedure: 08/13/24 Time of Procedure: 07:14 Location of Patient: PreOp Preparation: Sterile Prep, Sterile Dressing Arterial Line Location: Briachial Ultrasound Used: No Purpose - Visualization and Identification of Vasculature: No Image Stored and Saved: No Narrative: Invasive line placement per sterile protocol utilized.
[2024-08-13 10:28] LABS: Basophils % (A) 0 %; Eosinophils % (A) 0 %; HCT 24.1 % (39.0-53.0); Hypochromasia Slight; Lymphocytes # (A) 0.7 k/uL (1.0-4.8); Lymphocytes % (A) 4 %; MCH 28.3 pg (25.0-35.0); MCHC 33.4 g/dL (31.0-37.0); MCV 84.9 fL (80.0-100.0); Mean Platelet Volume 7.4; Monocytes # (A) 0.6 k/uL (0-1.0); Monocytes % (A) 3 %; Neutrophils # (A) 17.5 k/uL (1.3-7.7); Neutrophils % (A) 93 %; RBC 2.84 m/uL (4.30-5.90); RDW 15.2 % (11.5-15.5)
--- NOTE | 2024-08-13 10:28 | P.ANPRN ---
Procedure Note - Anesthesia - Invasive Line Left [place] Time Out Performed: Yes Date of Procedure: 08/13/24 Time of Procedure: 07:32 Location of Patient: CVL Preparation: Sterile Prep, Sterile Dressing Central Line Location: Internal Jugular Ultrasound Used: No Purpose - Visualization and Identification of Vasculature: No Image Stored and Saved: No Narrative: Invasive line placement per sterile protocol utilized.
[2024-08-13] MEDS: PHENYLEPHRINE 40 MG in SODIUM CHLORIDE 0.9% 250 ML IV SCH (10:33)
[2024-08-13] MEDS: SODIUM CHLORIDE 0.9% 1,000 ML IV SCH (10:34)
[2024-08-13 10:36] LABS: INR 1.7 (<1.2); Prothrombin Time 17.5 sec (10.0-12.5)
[2024-08-13 10:41] LABS: African American GFR (CKD) >90 (>60 ml/min/1.73 sqM); Anion Gap 8 mmol/L; Blood Urea Nitrogen 20 mg/dL (9-20); Carbon Dioxide 22 mmol/L (22-30); Chloride 104 mmol/L (98-107); Glucose 213 mg/dL (74-99); Non-African American GFR(CKD) >90 (>60 ml/min/1.73 sqM); Potassium 4.3 mmol/L (3.5-5.1); Sodium 134 mmol/L (137-145)
[2024-08-13 11:31] LABS: HGB 8.1 gm/dL (13.0-17.5)
[2024-08-13 11:32] LABS: Platelet Count 90 k/uL (150-450)
[2024-08-13 11:35] LABS: WBC 18.9 k/uL (3.8-10.6)
[2024-08-13] MEDS: ACETAMINOPHEN IV (For NPO) 1,000 MG in SALINE 1 100ML.BAG IVPB ONE (12:33)
--- NOTE | 2024-08-13 14:04 | P.HPIM ---
History of Present Illness H&P Date: 08/13/24 History of present illness: 78-year-old male patient with past medical tree significant for COPD, aortic aneurysm who presented to ER with a complaint of acute onset abdominal pain and back pain. Patient was afebrile in the ED, was tachycardic and hypotensive, required epinephrine drip. Was saturating 98% on 2 L. Patient denied any fever, chills, sore throat, productive cough, shortness of breath, chest pain, palpitations, dysuria urgency frequency weakness or numbness to extremities, diarrhea or constipation. WBCs were 15.6, hemoglobin 11.8, platelet 87. INR 1.1. Sodium 135 potassium 4.0 chloride 101 CO2 24 BUN 23 creatinine 0.45. Liver profile and lipase was unremarkable. Patient was afebrile tachycardic and hypotensive, required epinephrine drip. Ultrasound showed probable ruptured AAA with pulsatile mass. CT angio showed a large 11.8 cm aneurysm with stranding concerning for rupture. Patient was taken to [facility] for emergent endovascular aortic repair. Assessment and plan: Ruptured aortic aneurysm: Hypovolemic shock: Presented with acute onset abdominal pain and back pain Ultrasound in the ED concerning for probable ruptured AAA with pulsatile mass. Was tachycardic, hypotensive required epinephrine drip. CT angio showed a large 11.8 cm aneurysm with stranding concerning for rupture, with large right retroperitoneal hematoma Patient was taken to [facility] by vascular surgery status post percutaneous endovascular aortic repair, percutaneous transluminal balloon angioplasty of bilateral EUFEMIA, stent placement of bilateral EUFEMIA due to severe stenosis 08/13 Monitor vitals and labs Monitor H&H, transfuse for hemoglobin less than 7.0. Neurovascular checks. Vascular surgery following ICU consulted Hypertension COPD BPH DVT prophylaxis Per vascular surgery Monitor vital signs and labs Labs and medication were reviewed. Continue same treatment. Further recommendations as per clinical course of the patient PHYSICAL EXAMINATION: GENERAL: The patient is A&O x3, NAD HEENT: EOMI, Sclerae anicteric, Moist Mucous membranes Neck: Supple, Non tender, No JVD PULMONARY: Equal breath souds B/L, No wheezing, No crackles. CARDIOVASCULAR: S1, S2 present. No murmurs, rubs, or gallops. ABDOMEN: Soft, nontender, nondistended, normoactive bowel sounds. No guarding or rebound tenderness. MUSCULOSKELETAL: No edema, No cyanosis. No clubbing. Normal ROM. Intact peripheral pulses. NEUROLOGICAL: CN 2-12 grossly intact. No FND REVIEW OF SYSTEMS: CONSTITUTIONAL: No fever, no malaise, no fatigue. HEENT: No recent visual problems or hearing problems. Denied any sore throat. CARDIOVASCULAR: No chest pain, orthopnea, PND, no palpitations, no syncope. PULMONARY: No shortness of breath, no cough, no hemoptysis. GASTROINTESTINAL: No diarrhea, no nausea, no vomiting, no abdominal pain. NEUROLOGICAL: No headaches, no weakness, no numbness. HEMATOLOGICAL: Denies any bleeding or petechiae. GENITOURINARY: Denies any burning micturition, frequency, or urgency. MUSCULOSKELETAL/RHEUMATOLOGICAL: Denies any joint pain, swelling, or any muscle pain. ENDOCRINE: Denies any polyuria or polydipsia. The rest of the 14-point review of systems is negative. Dictation was produced using [employer] software. please excuse any grammatical, word or spelling errors. Past Medical History Past Medical History: Cancer (History of T-cell lymphoma, mycosis fungoides. Advanced COPD with an FEV1 of 38 to 42% of predicted, chronic hypoxic respirator y failure), COPD, Hyperlipidemia, Hypertension, Prostate Disorder History of Any Multi-Drug Resistant Organisms: None Reported Past Surgical History: Tonsillectomy Additional Past Surgical History / Comment(s): Deviated Septum Repair in the Past Psychological History: No Psychological Hx Reported Smoking Status: Light tobacco smoker Past Alcohol Use History: None Reported Past Drug Use History: None Reported Medications and Allergies Home Medications Medication Instructions Recorded Confirmed Type Acitretin [Soriatane] 25 mg PO MOWEFR 08/13/24 08/13/24 History Albuterol Sulfate [Albuterol 2 puff INHALATION RT-QID PRN 08/13/24 08/13/24 History Sulfate Hfa] Ezetimibe [Zetia] 10 mg PO DAILY 08/13/24 08/13/24 History Fluticasone Propion/Salmeterol 1 puff INHALATION RT-BID 08/13/24 08/13/24 History [Fluticasone-Salmeterol 250-50] Losartan/Hydrochlorothiazide 1 tab PO DAILY 08/13/24 08/13/24 History [Hyzaar 100-12.5 Tablet] Tamsulosin [Flomax] 0.4 mg PO DAILY 08/13/24 08/13/24 History Theophylline 12 Hour [Sorin-Dur] 300 mg PO BID 08/13/24 08/13/24 History Tiotropium [place] [Spiriva] 1 puff INHALATION RT-DAILY 08/13/24 08/13/24 History atenoloL [Tenormin] 12.5 mg PO DAILY 08/13/24 08/13/24 History predniSONE 5 mg PO DAILY 08/13/24 08/13/24 History Allergies Allergy/AdvReac Type Severity Reaction Status Date / Time No Known Allergies Allergy Verified 08/13/24 09:57 Physical Exam Vitals: Vital Signs Temp Pulse Resp BP Pulse Ox 08/13/24 12:58 96.0 F L 125 H 18 100/72 100 08/13/24 12:38 96.0 F L 120 H 18 112/70 100 08/13/24 12:29 95.9 F L 115 H 18 108/63 100 08/13/24 12:00 95.9 F L 123 H 19 100 08/13/24 11:45 118 H 17 90 L 08/13/24 11:30 120 H 18 100 08/13/24 11:15 122 H 19 100 08/13/24 11:00 125 H 20 103/58 100 08/13/24 10:45 125 H 103/58 100 08/13/24 10:30 123 H 25 H 103/58 100 08/13/24 10:15 122 H 17 103/58 100 08/13/24 10:00 124 H 21 100 08/13/24 09:50 124 H 21 109/70 100 08/13/24 09:46 95.6 F L 124 H 21 99 08/13/24 06:57 98 16 92/67 98 08/13/24 06:52 98 17 80/59 08/13/24 06:50 96.5 F L 08/13/24 06:39 84 16 77/59 95 08/13/24 06:34 92 17 62/42 96 08/13/24 06:25 96 16 89/55 96 08/13/24 06:20 100 17 74/47 98 08/13/24 06:15 96 17 57/40 99 08/13/24 05:59 92 17 122/94 96 08/13/24 05:34 98 125/97 95 08/13/24 04:44 97.4 F L 90 20 119/79 93 L Intake and Output 08/12/24 08/13/24 08/13/24 22:59 06:59 14:59 Intake Total 063.018 0697.881 Output Total 260 Balance 007.563 2865.881 Intake: IV 150 Sodium Chloride 0.9% 1, 150 000 ml @ 150 mls/hr IV . Q6H40M [facility] Rx#:[id number] Intake, IV Titration 5.437 39.881 Amount Esmolol in Sodium 5.437 Chloride Pmx 2.5 gm In Saline 1 250ml.bag @ 50 MCG/KG/MIN 14.696 mls/hr IV .Q17H1M [facility] Rx#: [id number] Phenylephrine 40 mg In 39.881 Sodium Chloride 0.9% 250 ml @ 1 MCG/KG/MIN 18.664 mls/hr IV .[id number] [facility] Rx #:[id number] Blood Product 620 1475 Ffp 24 Pher Acda Cnt1 220 Unit [id number] Ffp 24 Pher Acda Cnt1 217 Unit [id number] Ffp 24 Pher Acda Cnt2 220 Unit [id number] Ffp 24 Pher Acda Cnt2 221 Unit [id number] Rc As-1 Unit 310 [id number] Rc As-1 Unit 310 [id number] Rc As-1 Unit 310 [id number] Rc Irr As1 Unit 0 [id number] Rc Pheresis 2 As3 Unit 287 [id number] Output: Urine 260 Other: Weight 48.988 kg 48.988 kg ABP, PAP, CO, CI - Last 8 Hours Arterial Blood Pressure 103/56 Arterial Blood Pressure 106/57 Arterial Blood Pressure 98/52 Arterial Blood Pressure 93/48 Arterial Blood Pressure 82/51 Arterial Blood Pressure 86/54 Arterial Blood Pressure 88/59 Arterial Blood Pressure 98/52 Arterial Blood Pressure 99/55 Arterial Blood Pressure 89/49 Results CBC & Chem 7: 08/13/24 10:19 08/13/24 10:19 Labs: Abnormal Lab Results - Last 24 Hours (Table) 08/13/24 08/13/24 08/13/24 Range/Units 05:45 05:45 05:50 WBC 15.6 H (3.8-10.6) k/uL RBC (4.30-5.90) m/uL Hgb 11.8 L (13.0-17.5) gm/dL Hct 37.9 L (39.0-53.0) % Plt Count (150-450) k/uL Neutrophils # 13.5 H (1.3-7.7) k/uL Lymphocytes # (1.0-4.8) k/uL PT (10.0-12.5) sec INR (<1.2) Sodium 135 L (137-145) mmol/L BUN 23 H (9-20) mg/dL Creatinine 0.45 L (0.66-1.25) mg/dL Glucose 182 H (74-99) mg/dL POC Glucose (mg/dL) (70-110) mg/dL Calcium (8.4-10.2) mg/dL Total Protein 6.0 L (6.3-8.2) g/dL Albumin 3.4 L (3.5-5.0) g/dL Crossmatch See Detail 08/13/24 08/13/24 08/13/24 Range/Units 09:48 10:19 10:19 WBC 18.9 H (3.8-10.6) k/uL RBC 2.84 L (4.30-5.90) m/uL Hgb 8.1 L D (13.0-17.5) gm/dL Hct 24.1 L (39.0-53.0) % Plt Count 90 L D (150-450) k/uL Neutrophils # 17.5 H (1.3-7.7) k/uL Lymphocytes # 0.7 L (1.0-4.8) k/uL PT 17.5 H (10.0-12.5) sec INR 1.7 H (<1.2) Sodium (137-145) mmol/L BUN (9-20) mg/dL Creatinine (0.66-1.25) mg/dL Glucose (74-99) mg/dL POC Glucose (mg/dL) 240 H (70-110) mg/dL Calcium (8.4-10.2) mg/dL Total Protein (6.3-8.2) g/dL Albumin (3.5-5.0) g/dL Crossmatch 08/13/24 Range/Units 10:19 WBC (3.8-10.6) k/uL RBC (4.30-5.90) m/uL Hgb (13.0-17.5) gm/dL Hct (39.0-53.0) % Plt Count (150-450) k/uL Neutrophils # (1.3-7.7) k/uL Lymphocytes # (1.0-4.8) k/uL PT (10.0-12.5) sec INR (<1.2) Sodium 134 L (137-145) mmol/L BUN (9-20) mg/dL Creatinine 0.56 L (0.66-1.25) mg/dL Glucose 213 H (74-99) mg/dL POC Glucose (mg/dL) (70-110) mg/dL Calcium 8.0 L (8.4-10.2) mg/dL Total Protein (6.3-8.2) g/dL Albumin (3.5-5.0) g/dL Crossmatch
[2024-08-13] MEDS ORDERED: LORazepam 1 MG/0.5 ML VIAL IV PRN (14:10)
--- NOTE | 2024-08-13 14:50 | P.CNPUL ---
History of Present Illness Consult date: 08/13/24 Chief complaint: Abdominal aneurysm rupture History of present illness: This is a 78-year-old male patient who presented to the emergency department with acute abdominal pain. The patient underwent a CTA of the aorta with runoff and the patient was found to have an i infrarenal abdominal aortic aneurysm measuring 11.4 x 11.8 cm in size and prominent concentric atherosclerotic plaque and adjacent stranding. This was consistent with rupture with a large hematoma in the retroperitoneal space. Emergent vascular consultation was obtained and the patient was taken to the [facility] and the patient underwent a endovascular aortic repair with AFX II device and the patient also underwent percutaneous transluminal balloon angioplasty of bilateral common iliac arteries, percutaneous transluminal stent placement in the bilateral common iliac arteries due to severe stenosis and percutaneous closure of the bilateral femoral arteries with Perclose x 2 and left Angio-Seal. Postop, the patient was brought into the intensive care unit. At the time of his arrival, the patient was on 6 L of oxygen simple mask. His cardiac rhythm is sinus although the patient was still tachycardic and borderline hypotensive with a BP of 84/50. Noted, in the emergency the patient was initially started on esmolol drip. Subsequently, due to hypotension, the drip was discontinued and the patient was given a combination of Kwesi-Synephrine and vasopressin. At the time of arrival to the ICU, the patient was on no pressors. The patient has already received a total of 4 units of packed RBC and 4 units of fresh frozen plasma. Pulses in the lower extremities are diminished at the present. The patient also has a left IJ cordis and an arterial line in place. Awake and alert and communicating. The white cell count was at 15.6 with a hemoglobin 11.8 at time of admission and a platelet count of 421. Patient also had a sodium level of 135, BUN of 23 and a creatinine of 0.4. Normal LFTs. Normal amylase and lipase. Troponins were negative. The patient has no chest pain. No significant respiratory distress at this point in time. He is known to have COPD with an FEV1 of 38 to 42% of predicted and chronic hypoxic respiratory failure. He is also known to have hypertension hyperlipidemia and previous history of cutaneous T-cell lymphoma, mycosis fungoides. Past Medical History Past Medical History: Cancer (History of T-cell lymphoma, mycosis fungoides. Advanced COPD with an FEV1 of 38 to 42% of predicted, chronic hypoxic respiratory failure), COPD, Hyperlipidemia, Hypertension, Prostate Disorder History of Any Multi-Drug Resistant Organisms: None Reported Past Surgical History: Tonsillectomy Additional Past Surgical History / Comment(s): Deviated Septum Repair in the Past Psychological History: No Psychological Hx Reported Smoking Status: Light tobacco smoker Past Alcohol Use History: None Reported Past Drug Use History: None Reported Medications and Allergies Home Medications Medication Instructions Recorded Confirmed Type Acitretin [Soriatane] 25 mg PO MOWEFR 08/13/24 08/13/24 History Albuterol Sulfate [Albuterol 2 puff INHALATION RT-QID PRN 08/13/24 08/13/24 History Sulfate Hfa] Ezetimibe [Zetia] 10 mg PO DAILY 08/13/24 08/13/24 History Fluticasone Propion/Salmeterol 1 puff INHALATION RT-BID 08/13/24 08/13/24 History [Fluticasone-Salmeterol 250-50] Losartan/Hydrochlorothiazide 1 tab PO DAILY 08/13/24 08/13/24 History [Hyzaar 100-12.5 Tablet] Tamsulosin [Flomax] 0.4 mg PO DAILY 08/13/24 08/13/24 History Theophylline 12 Hour [Sorin-Dur] 300 mg PO BID 08/13/24 08/13/24 History Tiotropium Converse [Spiriva] 1 puff INHALATION RT-DAILY 08/13/24 08/13/24 History atenoloL [Tenormin] 12.5 mg PO DAILY 08/13/24 08/13/24 History predniSONE 5 mg PO DAILY 08/13/24 08/13/24 History Allergies Allergy/AdvReac Type Severity Reaction Status Date / Time No Known Allergies Allergy Verified 08/13/24 09:57 Physical Exam Vitals: Vital Signs Temp Pulse Resp BP Pulse Ox 08/13/24 06:57 98 16 92/67 98 08/13/24 06:52 98 17 80/59 08/13/24 06:50 96.5 F L 08/13/24 06:39 84 16 77/59 95 08/13/24 06:34 92 17 62/42 96 08/13/24 06:25 96 16 89/55 96 08/13/24 06:20 100 17 74/47 98 08/13/24 06:15 96 17 57/40 99 08/13/24 05:59 92 17 122/94 96 08/13/24 05:34 98 125/97 95 08/13/24 04:44 97.4 F L 90 20 119/79 93 L Intake and Output 08/12/24 08/13/24 08/13/24 22:59 06:59 14:59 Intake Total 295.731 9985 Output Total 225 Balance 999.138 1274 Intake: Intake, IV Titration 5.437 Amount Esmolol in Sodium 5.437 Chloride Pmx 2.5 gm In Saline 1 250ml.bag @ 50 MCG/KG/MIN 14.696 mls/hr IV .[facility]17H1M [facility] Rx#: [id number] Blood Product 620 1255 Ffp 24 Pher Acda Cnt1 220 Unit [id number] Ffp 24 Pher Acda Cnt1 217 Unit [id number] Ffp 24 Pher Acda Cnt2 0 Unit [id number] Ffp 24 Pher Acda Cnt2 221 Unit [id number] Rc As-1 Unit 310 [id number] Rc As-1 Unit 310 [id number] Rc As-1 Unit 310 [id number] Rc Pheresis 2 As3 Unit 287 [id number] Output: Urine 225 Other: Weight 48.988 kg The patient thin and frail with a body mass index of 16.9. Currently on 6 L simple mask. Head exam is unremarkable. No scleral icterus or corneal arcus noted. Neck is without jugular venous distension, thyromegaly, or carotid bruits. Carotid upstrokes are brisk bilaterally. Lungs are diminished breath sounds bilaterally and the patient has a barrel chest Cardiac exam reveals the PMI to be normally sized and situated. Rhythm is regular. First and second heart sounds normal. No murmurs, rubs or gallops. Abdominal exam reveals normal bowel sounds, no masses, no organomegaly and no aortic enlargement. Extremities are nonedematous and both femoral and pedal pulses diminished at 0 present. Extremities are still cold. No skin mottling. Surgical wound site in the groin area seems to be dry clean and intact. No significant hematoma. Examination of the skin revealed no evidence of significant rashes, suspicious appearing nevi or other concerning lesions. Neurologically, the patient is awake and alert and the patient does not have any focal neurological deficit. Cranial nerves are essentially intact. Results - Laboratory Findings CBC and BMP: 08/13/24 10:19 08/13/24 10:19 PT/INR, D-dimer PT 11.6 sec (10.0-12.5) 08/13/24 05:45 INR 1.1 (<1.2) 08/13/24 05:45 Abnormal lab findings: Abnormal Labs 08/13/24 08/13/24 08/13/24 05:45 05:45 05:50 WBC 15.6 H Hgb 11.8 L Hct 37.9 L Neutrophils # 13.5 H Sodium 135 L BUN 23 H Creatinine 0.45 L Glucose 182 H POC Glucose (mg/dL) Total Protein 6.0 L Albumin 3.4 L Crossmatch See Detail 08/13/24 09:48 WBC Hgb Hct Neutrophils # Sodium BUN Creatinine Glucose POC Glucose (mg/dL) 240 H Total Protein Albumin Crossmatch Assessment and Plan Plan: Assessment Abdominal pain secondary to ruptured abdominal aortic aneurysm and the patient was found to have a 12 cm infrarenal abdominal aortic aneurysm with concentric atherosclerotic plaque and adjacent stranding and large hematoma in the retroperitoneal space. The patient underwent emergent endovascular aortic repair with a AFX 2 device. The patient also underwent percutaneous balloon angioplasty of bilateral common iliac arteries and stent placement in the bilateral common iliacs for severe vascular disease. Currently postop day #0. Hemorrhagic shock secondary to above. Already received a total of 4 units of packed RBC. Blood pressure is borderline low. Currently on no pressors. Acute blood loss anemia, awaiting follow-up hemoglobin. Secondary to hemorrhagic shock and rupture of the aortic aneurysm. COPD, severe with an FEV1 of 38 to 42% of predicted Chronic hypoxic respiratory failure, currently on 60% oxygen by nasal cannula History of cutaneous T-cell lymphoma/mycosis fungoides Hypertension Hyperlipidemia BPH Chronic smoker Plan Patient admitted to the intensive care unit Titrate oxygen flow to maintain saturation above 90%, currently on 6 L Normal saline at rate of 150 cc an hour Stat CBC and transfuse if needed Start the patient on Kwesi-Synephrine drip for blood pressure control Monitor urine output Monitor pulse in the lower extremities Start the patient on Symbicort and Spiriva combination in addition to albuterol nebulizer treatments 4 times a day [id number] Condition is obviously critical. Will continue to follow and make further recommendations based on his progress.
[2024-08-13] MEDS: PANTOPRAZOLE 40 MG/10 ML VIAL IV SCH (18:06)
[2024-08-13] MEDS: METOPROLOL TARTRATE 5 MG/5 ML VIAL IVP STA (18:07)
[2024-08-13 18:27] LABS: HCT 31.4 % (39.0-53.0); HGB 10.3 gm/dL (13.0-17.5); MCH 27.7 pg (25.0-35.0); Mean Platelet Volume 8.8; Platelet Count 113 k/uL (150-450); Poikilocytosis Slight; RBC 3.73 m/uL (4.30-5.90); RDW 15.3 % (11.5-15.5); WBC 17.8 k/uL (3.8-10.6)
[2024-08-13] MEDS: IPRATROPIUM-ALBUTEROL 3 ML NEB INHALATION PRN (18:35)
[2024-08-13] MEDS: SYMBICORT 80-4.5 MCG INHALER INHALATION SCH (20:05)
[2024-08-14 04:57] LABS: INR 1.1 (<1.2); Prothrombin Time 12.3 sec (10.0-12.5)
[2024-08-14 04:59] LABS: Basophils % (A) 0 %; Eosinophils % (A) 0 %; HCT 27.1 % (39.0-53.0); HGB 9.2 gm/dL (13.0-17.5); Hypochromasia Slight; Lymphocytes # (A) 0.9 k/uL (1.0-4.8); Lymphocytes % (A) 4 %; MCH 28.3 pg (25.0-35.0); MCV 83.3 fL (80.0-100.0); Mean Platelet Volume 8.6; Monocytes # (A) 0.8 k/uL (0-1.0); Monocytes % (A) 4 %; Neutrophils # (A) 18.2 k/uL (1.3-7.7); Neutrophils % (A) 90 %; Platelet Count 139 k/uL (150-450); Poikilocytosis Slight; RBC 3.26 m/uL (4.30-5.90); RDW 15.3 % (11.5-15.5); WBC 20.1 k/uL (3.8-10.6)
[2024-08-14 05:02] LABS: ALT 17 U/L (4-49); AST 39 U/L (17-59); African American GFR (CKD) 88 (>60 ml/min/1.73 sqM); Albumin 2.9 g/dL (3.5-5.0); Alkaline Phosphatase 45 U/L (38-126); Anion Gap 8 mmol/L; Blood Urea Nitrogen 32 mg/dL (9-20); Calcium 7.9 mg/dL (8.4-10.2); Carbon Dioxide 22 mmol/L (22-30); Chloride 109 mmol/L (98-107); Glucose 132 mg/dL (74-99); Non-African American GFR(CKD) 76 (>60 ml/min/1.73 sqM); Potassium 4.4 mmol/L (3.5-5.1); Sodium 139 mmol/L (137-145); Total Bilirubin 0.9 mg/dL (0.2-1.3); Total Protein 4.9 g/dL (6.3-8.2)
[2024-08-14] MEDS: ASPIRIN 81 MG PO SCH (09:10)
[2024-08-14] MEDS: TIOTROPIUM 2.5 MCG INHALER INHALATION SCH (09:39)
--- NOTE | 2024-08-14 10:10 | XR ---
EXAMINATION TYPE: XR chest 1V portable DATE OF EXAM: 08/14/2024 10:04 AM COMPARISON: None CLINICAL INDICATION: Male, 78 years old with history of sob; TECHNIQUE: XR chest 1V portable Frontal view of the chest. FINDINGS: Lungs/Pleura: There is flattening of the diaphragm with increased lucency of the lungs. No evidence o f pneumothorax, pleural effusion or focal consolidation. Pulmonary vascularity: Unremarkable. Heart/mediastinum: Cardiomediastinal silhouette is unremarkable. Musculoskeletal: No acute osseous pathology. Other findings: None IMPRESSION: 1. No acute cardiopulmonary disease process. 2. COPD changes. [facility], , 08/14/2024 10:08 AM
[2024-08-14] MEDS ORDERED: methylPREDNISolone SOD SUCCI 40 MG/ML 1 ML VIAL IV SCH (10:15)
[2024-08-14] MEDS: CALCIUM GLUCONATE IN NACL 2 GM in SALINE 1 100ML.BAG IVPB ONE (10:51)
[2024-08-14] MEDS: methylPREDNISolone SOD SUCCI 125 MG/2 ML VIAL IV SCH (10:52)
--- NOTE | 2024-08-14 11:14 | P.PN ---
Subjective Progress Note Date: 08/14/24 Principal diagnosis: Ruptured infrarenal AAA Patient seen and examined today as a follow-up in the ICU. He is postop day #1 for percutaneous endovascular aortic repair as well as percutaneous balloon angioplasty of bilateral common iliac arteries for stent placement. He curren tly denies any abdominal pain, no pain down his lower extremities. States he is feeling good. Does appear to have some increased respiratory effort compared to yesterday however does have a history of COPD and currently oxygen saturation 100% on 2 L nasal cannula. Patient has also been tachycardic throughout the night. Chisel Trimmer and medical management following. Pérez catheter in place with estimated 30 to 35 cc of urine output hourly. Patient had been n.p.o. throughout the night with ice chips and has tolerated that well. Denies any flatus. WBC 20.1 hemoglobin 9.2 platelet count 139,000. He is status post 5 units of PRBC transfusion and 4 units of FFP. Objective - Vital Signs Vital signs: Vital Signs Temp 97.8 F 08/14/24 04:00 Pulse 125 H 08/14/24 07:00 Resp 29 H 08/14/24 07:00 BP 112/66 08/13/24 15:48 Pulse Ox 100 08/14/24 07:00 FiO2 Intake & Output 08/13/24 08/14/24 08/14/24 18:59 06:59 18:59 Intake Total 3046.002 1986 Output Total 620 350 Balance 2426.002 1636 Weight 48.988 kg 54.3 kg Intake: IV 1200 1985 A line 36 Sodium Chloride 0.9% 1, 1200 1950 000 ml @ 150 mls/hr IV . Q6H40M [facility] Rx#:[id number] Intake, IV Titration 61.002 Amount Phenylephrine 40 mg In 61.002 Sodium Chloride 0.9% 250 ml @ 1 MCG/KG/MIN 18.664 mls/hr IV .[id number] [facility] Rx #:[id number] Blood Product 1785 Ffp 24 Pher Acda Cnt1 220 Unit [id number] Ffp 24 Pher Acda Cnt1 217 Unit [id number] Ffp 24 Pher Acda Cnt2 220 Unit [id number] Ffp 24 Pher Acda Cnt2 221 Unit [id number] Rc As-1 Unit 310 [id number] Rc Irr As1 Unit 310 [id number] Pheresis 2 As3 Unit 287 [id number] Output: Urine 620 350 Other: Voiding Method Indwelling Catheter Indwelling Catheter ABP, PAP, CO, CI - Last Documented Arterial Blood Pressure 113/55 - Exam General appearance: The patient is alert, oriented, appears in no acute distress. HET: Head is normocephalic and atraumatic. Pupils are equal and reactive. Neck: Supple. Heart: Regular. Tachycardic. Lungs: Equal expansion, increased respiratory effort. Diminished. Abdomen: Firm, but improved from yesterday, nontender, mild distention. Bowel sounds hypoactive. Extremities: Normal skin color and turgor. Palpable DP pulses bilaterally. Neurological: Alert and oriented. - Labs CBC & Chem 7: 08/14/24 04:40 08/14/24 04:40 Labs: Abnormal Lab Results - Last 24 Hours (Table) 08/13/24 08/13/24 08/13/24 Range/Units 05:50 09:48 10:19 WBC (3.8-10.6) k/uL RBC (4.30-5.90) m/uL Hgb (13.0-17.5) gm/dL Hct (39.0-53.0) % Plt Count (150-450) k/uL Neutrophils # (1.3-7.7) k/uL Lymphocytes # (1.0-4.8) k/uL PT 17.5 H (10.0-12.5) sec INR 1.7 H (<1.2) Sodium (137-145) mmol/L Chloride (98-107) mmol/L BUN (9-20) mg/dL Creatinine (0.66-1.25) mg/dL Glucose (74-99) mg/dL POC Glucose (mg/dL) 240 H (70-110) mg/dL Calcium (8.4-10.2) mg/dL Total Protein (6.3-8.2) g/dL Albumin (3.5-5.0) g/dL Crossmatch See Detail 08/13/24 08/13/24 08/13/24 Range/Units 10:19 10:19 18:05 WBC 18.9 H 17.8 H (3.8-10.6) k/uL RBC 2.84 L 3.73 L (4.30-5.90) m/uL Hgb 8.1 L D 10.3 L (13.0-17.5) gm/dL Hct 24.1 L 31.4 L (39.0-53.0) % Plt Count 90 L D 113 L (150-450) k/uL Neutrophils # 17.5 H (1.3-7.7) k/uL Lymphocytes # 0.7 L (1.0-4.8) k/uL PT (10.0-12.5) sec INR (<1.2) Sodium 134 L (137-145) mmol/L Chloride (98-107) mmol/L BUN (9-20) mg/dL Creatinine 0.56 L (0.66-1.25) mg/dL Glucose 213 H (74-99) mg/dL POC Glucose (mg/dL) (70-110) mg/dL Calcium 8.0 L (8.4-10.2) mg/dL Total Protein (6.3-8.2) g/dL Albumin (3.5-5.0) g/dL Crossmatch 08/14/24 08/14/24 Range/Units 04:40 04:40 WBC 20.1 H (3.8-10.6) k/uL RBC 3.26 L (4.30-5.90) m/uL Hgb 9.2 L (13.0-17.5) gm/dL Hct 27.1 L (39.0-53.0) % Plt Count 139 L (150-450) k/uL Neutrophils # 18.2 H (1.3-7.7) k/uL Lymphocytes # 0.9 L (1.0-4.8) k/uL PT (10.0-12.5) sec INR (<1.2) Sodium (137-145) mmol/L Chloride 109 H (98-107) mmol/L BUN 32 H (9-20) mg/dL Creatinine (0.66-1.25) mg/dL Glucose 132 H (74-99) mg/dL POC Glucose (mg/dL) (70-110) mg/dL Calcium 7.9 L (8.4-10.2) mg/dL Total Protein 4.9 L (6.3-8.2) g/dL Albumin 2.9 L (3.5-5.0) g/dL Crossmatch Assessment and Plan Assessment: 1. Ruptured 12.5 infrarenal abdominal aortic aneurysm status post percutaneous endovascular aortic repair 2. Hemorrhagic shock secondary to above, status post 5 units of packed RBC and 4 units of FFP 3. Bilateral common iliac artery stenosis status post percutaneous transluminal balloon angioplasty and stent placement 4. Acute blood loss anemia secondary to ruptured infrarenal abdominal aortic aneurysm 5. COPD 6. Smoker 7. Hypertension 8. Hyperlipidemia 9. BPH 10. History of cutaneous T-cell lymphoma/mycosis fungoides Plan: 1. Patient is post percutaneous endovascular abdominal aortic repair with bilateral common iliac artery balloon angioplasty and stent placement 2. Increase activity as tolerated 3. Will start on clear liquid diet and advance as tolerated to heart healthy diet 4. Daily CBC 5. Rest of medical management per primary medical team and ICU file system installer 6. Recommend smoking cessation. Discussed with patient importance of smoking cessation. Patient offered nicotine patch. Quit smoking hotline 1 800 quit-now given to patient on discharge. Thank you for this consultation, we will continue to follow along. The impression and plan of care has been dictated as directed. Dr. Robles I performed a history and examination of this patient, discussed the same with the dictator. I agree with the dictator's note ,documented as a scribe. Any additional findings or plans will be noted.
[2024-08-14 14:14] LABS: ABG Base Excess -7.3 mmol/L; ABG HCO3 22 mmol/L (21-25); ABG Oxygen Saturation 99.4 % (94-97); ABG PO2 159 mmHg (83-108); ABG TCO2 25 mmol/L (19-24); Allen Test Performed? Yes
[2024-08-14 14:16] LABS: ABG PCO2 72 mmHg (35-45)
[2024-08-14 14:55] LABS: HCT 25.1 % (39.0-53.0); HGB 8.1 gm/dL (13.0-17.5); Hypochromasia Moderate; MCH 27.9 pg (25.0-35.0); MCHC 32.3 g/dL (31.0-37.0); MCV 86.1 fL (80.0-100.0); Mean Platelet Volume 8.2; Platelet Count 148 k/uL (150-450); Poikilocytosis Moderate; RBC 2.91 m/uL (4.30-5.90); RDW 15.8 % (11.5-15.5); WBC 20.7 k/uL (3.8-10.6)
[2024-08-14] MEDS: CISATRACURIUM 2 MG/ML 5 ML VIAL IV ONE (15:07)
[2024-08-14] MEDS: PROPOFOL 10 MG/ML 20 ML VIAL IV ONE (15:08)
[2024-08-14] MEDS: NOREPINEPHRINE 4 MG in SODIUM CHLORIDE 0.9% 250 ML IV SCH (15:11)
--- NOTE | 2024-08-14 15:18 | XR ---
EXAMINATION TYPE: XR chest 1V portable DATE OF EXAM: 08/14/2024 3:09 PM COMPARISON: Chest radiographs from same day. CLINICAL INDICATION: Male, 78 years old with history of Tube placement; TECHNIQUE: XR chest 1V portable Frontal view of the chest. FINDINGS: Lungs/Pleura: Scattered subtle reticular and hazy opacities. No evidence of pneumothorax, focal conso lidation or pleural effusion. Pulmonary vascularity: Unremarkable. Heart/mediastinum: Cardiomediastinal silhouette is unremarkable. Musculoskeletal: No acute osseous pathology. Other findings: None Endotracheal tube 4.2 cm above the gadiel. Nasogastric tube side-port remains in the esophagus. IMPRESSION: 1. Endotracheal tube in satisfactory position. 2. Nasogastric tube in high position. Advancement recommended up to 12 cm 3. Subtle scattered opacities which may represent an atypical pneumonia. Correlate for covid 19. [facility], , 08/14/2024 3:16 PM
[2024-08-14] MEDS: SODIUM CHLORIDE 0.9% 1,000 ML IV SCH (15:32)
--- NOTE | 2024-08-14 15:34 | P.PN ---
Subjective Interval History: History of present illness: 78-year-old male patient with past medical tree significant for COPD, aortic aneurysm who presented to ER with a complaint of acute onset abdominal pain and back pain. Patient was afebrile in the ED, was tachycardic and hypotensive, required epinephrine drip. Was saturating 98% on 2 L. Patient denied any fever, chills, sore throat, productive cough, shortness of breath, chest pain, palpitations, dysuria urgency frequency weakness or numbness to extremities, diarrhea or constipation. WBCs were 15.6, hemoglobin 11.8, platelet 87. INR 1.1. Sodium 135 potassium 4.0 chloride 101 CO2 24 BUN 23 creatinine 0.45. Liver profile and lipase was unremarkable. Patient was afebrile tachycardic and hypotensive, required epinephrine drip. Ultrasound showed probable ruptured AAA with pulsatile mass. CT angio showed a large 11.8 cm aneurysm with stranding concerning for rupture. Patient was taken to [facility] for emergent endovascular aortic repair. 08/14--patient was seen and examined today. Son at bedside. Patient feeling better. Afebrile, tachycardic with heart rate in the low 100s, tachypneic with respiratory rate 20, blood pressure is low 107/51. Patient denied any nausea vomiting abdominal pain, dizziness. Currently on 2 L oxygen. Was tachycardic overnight. No flatus. So far 5 units packed RBCs and 4 units of FFP transfusion. Hemoglobin currently stable. Vascular surgery following. ICU following. WBCs 20.1, hemoglobin 9.2, platelet 139. BUN 32, creatinine 0.96. Assessment and plan: Ruptured aortic aneurysm: Hypovolemic shock: Acute blood loss anemia: Retroperitoneal hematoma: Presented with acute onset abdominal pain and back pain Ultrasound in the ED concerning for probable ruptured AAA with pulsatile mass. Was tachycardic, hypotensive required epinephrine drip. CT angio showed a large 11.8 cm aneurysm with stranding concerning for rupture, with large right retroperitoneal hematoma Patient was taken to [facility] by vascular surgery status post percutaneous endovascular aortic repair, percutaneous transluminal balloon angioplasty of bilateral EUFEMIA, stent placement of bilateral EUFEMIA due to severe stenosis 08/13 Status post 5 units of packed RBCs, 4 units of FFP. Monitor vitals and labs Monitor H&H, transfuse for hemoglobin less than 7.0. Neurovascular checks. Vascular surgery following ICU consulted Hypertension COPD BPH DVT prophylaxis Per vascular surgery Monitor vital signs and labs Labs and medication were reviewed. Continue same treatment. Further recommendations as per clinical course of the patient PHYSICAL EXAMINATION: GENERAL: The patient is A&O x3, NAD HEENT: EOMI, Sclerae anicteric, Moist Mucous membranes Neck: Supple, Non tender, No JVD PULMONARY: Equal breath souds B/L, No wheezing, No crackles. CARDIOVASCULAR: S1, S2 present. No murmurs, rubs, or gallops. ABDOMEN: Soft, nontender, nondistended, normoactive bowel sounds. No guarding or rebound tenderness. MUSCULOSKELETAL: No edema, No cyanosis. No clubbing. Normal ROM. Intact peripheral pulses. NEUROLOGICAL: CN 2-12 grossly intact. No FND REVIEW OF SYSTEMS: CONSTITUTIONAL: No fever or chills. CARDIOVASCULAR: No chest pain, palpitations or syncope. PULMONARY: No shortness of breath, no cough, sore throat. GASTROINTESTINAL: No nausea, vomiting, diarrhea, abdominal pain. : No Dysuria, urgency, frequency. Extremities: No edema. NEUROLOGICAL: No headaches, no weakness, or numbness Dictation was produced using [employer] dictation software. please excuse any grammatical, word or spelling errors. Objective - Vital Signs Vital signs: Vital Signs Temp 97.9 F 08/14/24 12:00 Pulse 93 08/14/24 15:20 Resp 24 08/14/24 15:20 BP 105/65 08/14/24 15:10 Pulse Ox 100 08/14/24 15:20 FiO2 100 08/14/24 15:08 Intake & Output 08/13/24 08/14/24 08/14/24 18:59 06:59 18:59 Intake Total 3046.002 1985 1923.073 Output Total 620 350 60 Balance 2426.002 1636 1863.073 Weight 48.988 kg 54.3 kg Intake: IV 1200 1985 1089 A line 36 39 Sodium Chloride 0.9% 11199 1950 1050 000 ml @ 150 mls/hr IV . Q6H40M [facility]S INCLUDE 234 BEDS AT [facility] Rx#:[id number] Intake, IV Titration 61.002 104.073 Amount Calcium Gluconate in NaCl 100 2 gm In Saline 1 100ml. bag @ 100 mls/hr IVPB ONCE ONE Rx#:[id number] Phenylephrine 40 mg In 61.002 Sodium Chloride 0.9% 250 ml @ 1 MCG/KG/MIN 18.664 mls/hr IV .[id number] COUNTS INCLUDE 234 BEDS AT THE [facility] Rx #:[id number] propofoL 1,000 mg In 4.073 Empty Bag 1 bag @ 15 MCG/ KG/MIN 4.887 mls/hr IV . [id number] COUNTS INCLUDE 234 BEDS AT THE [facility] Rx#:[id number] Oral 730 Blood Product 1785 Ffp 24 Pher Acda Cnt1 220 Unit [id number] Ffp 24 Pher Acda Cnt1 217 Unit [id number] Ffp 24 Pher Acda Cnt2 220 Unit [id number] Ffp 24 Pher Acda Cnt2 221 Unit [id number] Rc As-1 Unit 310 [id number] Rc Irr As1 Unit 310 [id number] Rc Pheresis 2 As3 Unit 287 [id number] Output: Urine 620 350 60 Other: Voiding Method Indwelling Catheter Indwelling Catheter ABP, PAP, CO, CI - Last Documented Arterial Blood Pressure 109/49 - Labs CBC & Chem 7: 08/14/24 14:27 08/14/24 04:40 Labs: Abnormal Lab Results - Last 24 Hours (Table) 08/13/24 08/13/24 08/14/24 Range/Units 05:50 18:05 04:40 WBC 17.8 H (3.8-10.6) k/uL RBC 3.73 L (4.30-5.90) m/uL Hgb 10.3 L (13.0-17.5) gm/dL Hct 31.4 L (39.0-53.0) % RDW (11.5-15.5) % Plt Count 113 L (150-450) k/uL Neutrophils # (1.3-7.7) k/uL Lymphocytes # (1.0-4.8) k/uL ABG pH (7.35-7.45) ABG pCO2 (35-45) mmHg ABG pO2 (83-108) mmHg ABG Total CO2 (19-24) mmol/L ABG O2 Saturation (94-97) % Hemoglobin (13.0-17.5) gm/dL Chloride 109 H (98-107) mmol/L BUN 32 H (9-20) mg/dL Glucose 132 H (74-99) mg/dL Calcium 7.9 L (8.4-10.2) mg/dL Total Protein 4.9 L (6.3-8.2) g/dL Albumin 2.9 L (3.5-5.0) g/dL Crossmatch See Detail 08/14/24 08/14/24 08/14/24 Range/Units 04:40 14:10 14:27 WBC 20.1 H 20.7 H (3.8-10.6) k/uL RBC 3.26 L 2.91 L (4.30-5.90) m/uL Hgb 9.2 L 8.1 L (13.0-17.5) gm/dL Hct 27.1 L 25.1 L (39.0-53.0) % RDW 15.8 H (11.5-15.5) % Plt Count 139 L 148 L (150-450) k/uL Neutrophils # 18.2 H (1.3-7.7) k/uL Lymphocytes # 0.9 L (1.0-4.8) k/uL ABG pH 7.10 L* (7.35-7.45) ABG pCO2 72 H* (35-45) mmHg ABG pO2 159 H (83-108) mmHg ABG Total CO2 25 H (19-24) mmol/L ABG O2 Saturation 99.4 H (94-97) % Hemoglobin 8.2 L (13.0-17.5) gm/dL Chloride (98-107) mmol/L BUN (9-20) mg/dL Glucose (74-99) mg/dL Calcium (8.4-10.2) mg/dL Total Protein (6.3-8.2) g/dL Albumin (3.5-5.0) g/dL Crossmatch
[2024-08-14 16:20] LABS: Allen Test Performed? Yes
[2024-08-14 16:21] LABS: ABG HCO3 20 mmol/L (21-25); ABG Oxygen Saturation >100.0 % (94-97); ABG PCO2 53 mmHg (35-45); ABG TCO2 22 mmol/L (19-24)
[2024-08-14 16:24] LABS: ABG PH 7.18 (7.35-7.45); ABG PO2 >420 mmHg (83-108)
--- NOTE | 2024-08-14 16:52 | CA ---
Transthoracic Echo Report Name: David Duval Age: 78 Gender: M : 1945 Exam Date: 08/14/2024 07:46 Exam Location: [facility] Ht (in): 67 Wt (lb): 108 Ordering Physician: Diogo Virk MD Attending/Referring Phys: Learning Operations Specialist Inge Crocker RDCS Procedure CPT: Indications: AAA Cardiac Hx: Technical Quality: Very technically difficult study Contrast 1: Total Dose (mL): Contrast 2: Total Dose (mL): MEASUREMENTS (Male / Female) Normal Values 2D ECHO LV Diastolic Diameter PLAX 2.9 cm 4.2 - 5.9 / 3.9 - 5.3 cm LV Systolic Diameter PLAX 2.2 cm IVS Diastolic Thickness 1.2 cm 0.6 - 1.0 / 0.6 - 0.9 cm LVPW Diastolic Thickness 1.1 cm 0.6 - 1.0 / 0.6 - 0.9 cm LV Relative Wall Thickness 0.8 RV Internal Dim ED PLAX 3.0 cm LA Systolic Diameter LX 2.5 cm 3.0 - 4.0 / 2.7 - 3.8 cm M-MODE Aortic Root Diameter MM 3.2 cm FINDINGS Left Ventricle Left ventricular ejection fraction is estimated at 70-75 %. Small left ventricular cavity. Mildly increased septal wall thickness. Hyperdynamic left ventricular systolic function. Right Ventricle Normal right ventricular size. Unable to estimate the right ventricular systolic pressure. Right Atrium Right atrium not well visualized. Left Atrium Normal left atrial size. No left atrial thrombus or mass present. Mitral Valve Structurally normal mitral valve. No mitral stenosis, regurgitation or prolapse. Aortic Valve Aortic valve not well visualized. No aortic valve stenosis or regurgitation. Tricuspid Valve Structurally normal tricuspid valve. No tricuspid regurgitation. Pulmonic Valve Pulmonic valve not well visualized. Pericardium Moderate pericardial effusion. Pericardial effusion filled with fibrous strands by RV Aorta Normal size aortic root and proximal ascending aorta. CONCLUSIONS Indication patient tachycardic Hyperdynamic LV function, tachycardia Moderate pericardial effusion Previewed by: Dr. Ryan Aguilar MD (Electronically Signed) Final Date: 14 August 2024 16:51
[2024-08-14] MEDS: VASOPRESSIN 60 UNIT in SODIUM CHLORIDE 0.9% 150 ML IV SCH (17:57)
[2024-08-14] MEDS: PIPERACILLIN-TAZOBACTAM 3.375 GM in SODIUM CHLORIDE 0.9% 100 ML IVPB SCH (18:21)
--- NOTE | 2024-08-14 19:58 | P.PN ---
Subjective Progress Note Date: 08/14/24 This is a 78-year-old male patient who presented to the emergency department with acute abdominal pain. The patient underwent a CTA of the aorta with runoff and the patient was found to have an i infrarenal abdominal aortic aneurysm measuring 11.4 x 11.8 cm in size and prominent concentric atherosclerotic plaque and adjacent stranding. This was consistent with rupture with a large hematoma in the retroperitoneal space. Emergent vascular consultation was obtained and the patient was taken to the [facility] and the patient underwent a endovascular aortic repair with AFX II device and the patient also underwent percutaneous transluminal balloon angioplasty of bilateral common iliac arteries, percut aneous transluminal stent placement in the bilateral common iliac arteries due to severe stenosis and percutaneous closure of the bilateral femoral arteries with Perclose x 2 and left Angio-Seal. Postop, the patient was brought into the intensive care unit. At the time of his arrival, the patient was on 6 L of oxygen simple mask. His cardiac rhythm is sinus although the patient was still tachycardic and borderline hypotensive with a BP of 84/50. Noted, in the emergency the patient was initially started on esmolol drip. Subsequently, due to hypotension, the drip was discontinued and the patient was given a combination of Kwesi-Synephrine and vasopressin. At the time of arrival to the ICU, the patient was on no pressors. The patient has already received a total of 4 units of packed RBC and 4 units of fresh frozen plasma. Pulses in the lower extremities are diminished at the present. The patient also has a left IJ cordis and an arterial line in place. Awake and alert and communicating. The white cell count was at 15.6 with a hemoglobin 11.8 at time of admission and a platelet count of 421. Patient also had a sodium level of 135, BUN of 23 and a creatinine of 0.4. Normal LFTs. Normal amylase and lipase. Troponins were negative. The patient has no chest pain. No significant respiratory distress at this point in time. He is known to have COPD with an FEV1 of 38 to 42% of predicted and chronic hypoxic respiratory failure. He is also known to have hypertension hyperlipidemia and previous history of cutaneous T-cell lymphoma, mycosis fungoides. On 08/14/2024, patient is being seen for a follow-up. Earlier this morning, the patient's breathing was quite labored even at rest. He was increasingly bronchospastic and wheezy. The same time, he was still awake and alert and communicating. He was on oxygen 2 L/min nasal cannula. He was given bronchodilators and she was also started on steroids. Later on, by afternoon, the patient became more obtunded and lethargic and weak. At that point, a blood gas was done that showed a pH of 7.1 with a pCO2 of 72 and pO2 of 156 and based on that, the patient was intubated and placed on the mechanical ventilator. He is currently on assist-control mode of mechanical ventilation at rate of 20, tidal volume of 350, FiO2 of 100% with a PEEP of 5. Awaiting follow-up blood gases. Postintubation chest x-ray showed COPD with bilateral hyperinflation. Orogastric tube was in high position needed to be advanced. Orotracheal tube was in satisfactory position. The patient has subtle scattered opacities bilaterally. Postintubation, the patient encountered significant hypotension. The patient was immediately given 2 L of IV fluids nasal cannula and the patient was started on norepinephrine for blood pressure support. Noted, prior to that, the patient was on no pressors and the patient was doing well emergency at rate of 100 cc an hour. He continues to be sinus tachycardia. Repeat blood work was done and the patient white cell count of 20.7 with a hemoglobin of 8.1 and a platelet count of 143. Hemoglobin has remained stable at 8.1. BUN 32 with a creatinine of 0.9 and sodium levels at 139 and potassium level is at 4.4. Pulses lower extremities are diminished. They are obtainable by Doppler signal. Objective - Vital Signs Vital signs: Vital Signs Temp 98.1 F 08/14/24 08:30 Pulse 123 H 08/14/24 09:00 Resp 23 08/14/24 09:00 BP 108/61 08/14/24 09:00 Pulse Ox 98 08/14/24 09:24 FiO2 Intake & Output 08/13/24 08/14/24 08/14/24 18:59 06:59 18:59 Intake Total 3046.002 1986 549 Output Total 620 350 40 Balance 2426.002 1636 509 Weight 48.988 kg 54.3 kg Intake: IV 1200 1986 309 A line 36 9 Sodium Chloride 0.9% 1199 1950 300 000 ml @ 150 mls/hr IV . Q6H40M [facility] Rx#:[id number] Intake, IV Titration 61.002 Amount Phenylephrine 40 mg In 61.002 Sodium Chloride 0.9% 250 ml @ 1 MCG/KG/MIN 18.664 mls/hr IV .[id number] [facility] Rx #:[id number] Oral 240 Blood Product 1785 Ffp 24 Pher Acda Cnt1 220 Unit [id number] Ffp 24 Pher Acda Cnt1 217 Unit [id number] Ffp 24 Pher Acda Cnt2 220 Unit [id number] Ffp 24 Pher Acda Cnt2 221 Unit [id number] Rc As-1 Unit 310 [id number] Rc Irr As1 Unit 310 [id number] Rc Pheresis 2 As3 Unit 287 [id number] Output: Urine 620 350 40 Other: Voiding Method Indwelling Catheter Indwelling Catheter ABP, PAP, CO, CI - Last Documented Arterial Blood Pressure 111/50 - Exam The patient thin and frail with a body mass index of 16.9. Currently sedated with propofol., Comfortable, intubated on mechanical ventilator. Orogastric and orotracheal tube are both in place. Head exam is unremarkable. No scleral icterus or corneal arcus noted. Neck is without jugular venous distension, thyromegaly, or carotid bruits. Carotid upstrokes are brisk bilaterally. Lungs are diminished breath sounds bilaterally and the patient has a barrel chest Cardiac exam reveals the PMI to be normally sized and situated. Rhythm is regular. First and second heart sounds normal. No murmurs, rubs or gallops. Abdominal exam reveals normal bowel sounds, no masses, no organomegaly and no aortic enlargement. Extremities are nonedematous and both femoral and pedal pulses diminished and they are obtainable by Doppler signal. Femoral pulses are present bilaterally.. Extremities are still cold. No skin mottling. Surgical wound site in the groin area seems to be dry clean and intact. No significant hematoma. Examination of the skin revealed no evidence of significant rashes, suspicious appearing nevi or other concerning lesions. Neurologically, the patient was awake and alert earlier. Based on diminished level of consciousness, and hypercapnic respiratory failure, the patient was sedated and subsequently intubated and placed on the mechanical ventilator. - Labs CBC & Chem 7: 08/14/24 14:27 04/03/25 04:40 Labs: Abnormal Lab Results - Last 24 Hours (Table) 08/13/24 08/13/24 08/13/24 Range/Units 05:50 10:19 10:19 WBC 18.9 H (3.8-10.6) k/uL RBC 2.84 L (4.30-5.90) m/uL Hgb 8.1 L D (13.0-17.5) gm/dL Hct 24.1 L (39.0-53.0) % Plt Count 90 L D (150-450) k/uL Neutrophils # 17.5 H (1.3-7.7) k/uL Lymphocytes # 0.7 L (1.0-4.8) k/uL PT 17.5 H (10.0-12.5) sec INR 1.7 H (<1.2) Sodium (137-145) mmol/L Chloride (98-107) mmol/L BUN (9-20) mg/dL Creatinine (0.66-1.25) mg/dL Glucose (74-99) mg/dL Calcium (8.4-10.2) mg/dL Total Protein (6.3-8.2) g/dL Albumin (3.5-5.0) g/dL Crossmatch See Detail 08/13/24 08/13/24 08/14/24 Range/Units 10:19 18:05 04:40 WBC 17.8 H (3.8-10.6) k/uL RBC 3.73 L (4.30-5.90) m/uL Hgb 10.3 L (13.0-17.5) gm/dL Hct 31.4 L (39.0-53.0) % Plt Count 113 L (150-450) k/uL Neutrophils # (1.3-7.7) k/uL Lymphocytes # (1.0-4.8) k/uL PT (10.0-12.5) sec INR (<1.2) Sodium 134 L (137-145) mmol/L Chloride 109 H (98-107) mmol/L BUN 32 H (9-20) mg/dL Creatinine 0.56 L (0.66-1.25) mg/dL Glucose 213 H 132 H (74-99) mg/dL Calcium 8.0 L 7.9 L (8.4-10.2) mg/dL Total Protein 4.9 L (6.3-8.2) g/dL Albumin 2.9 L (3.5-5.0) g/dL Crossmatch 08/14/24 Range/Units 04:40 WBC 20.1 H (3.8-10.6) k/uL RBC 3.26 L (4.30-5.90) m/uL Hgb 9.2 L (13.0-17.5) gm/dL Hct 27.1 L (39.0-53.0) % Plt Count 139 L (150-450) k/uL Neutrophils # 18.2 H (1.3-7.7) k/uL Lymphocytes # 0.9 L (1.0-4.8) k/uL PT (10.0-12.5) sec INR (<1.2) Sodium (137-145) mmol/L Chloride (98-107) mmol/L BUN (9-20) mg/dL Creatinine (0.66-1.25) mg/dL Glucose (74-99) mg/dL Calcium (8.4-10.2) mg/dL Total Protein (6.3-8.2) g/dL Albumin (3.5-5.0) g/dL Crossmatch Assessment and Plan Plan: Assessment Abdominal pain secondary to ruptured abdominal aortic aneurysm and the patient was found to have a 12 cm infrarenal abdominal aortic aneurysm with concentric atherosclerotic plaque and adjacent stranding and large hematoma in the retroperitoneal space. The patient underwent emergent endovascular aortic repair with a AFX 2 device. The patient also underwent percutaneous balloon angioplasty of bilateral common iliac arteries and stent placement in the bilateral common iliacs for severe vascular disease. Currently postop day #1. The patient was hemodynamically stable earlier this morning. Subsequently, the patient was condition decompensated and the patient went into acute hypercapnic respiratory failure. Currently intubated on mechanical ventilator. Hemorrhagic shock secondary to above. Already received a total of 5 units of packed RBC. Postintubation, the patient became quite hypotensive and the patient was started on pressors and currently the patient is on a combination of fluids and norepinephrine infusion. Acute hypercapnic respiratory failure with secondary diminished level of consciousness secondary COPD exacerbation. The patient is not have advanced COPD, currently intubated on mechanical ventilator. Acute blood loss anemia, awaiting follow-up hemoglobin. Secondary to hemorrhagic shock and rupture of the aortic aneurysm. Hemoglobin remained stable above 8 COPD, severe with an FEV1 of 38 to 42% of predicted Chronic hypoxic respiratory failure, secondary to COPD History of cutaneous T-cell lymphoma/mycosis fungoides Hypertension Hyperlipidemia BPH Chronic smoker Plan Keep the patient sedated on propofol and titrate to maintain adequate synchrony with the mechanical ventilator and adequate sedation Titrate oxygen, FiO2 to maintain saturation above 90% Obtain a follow-up blood gas Normal saline at rate of 150 cc an hour, the patient is to be given additional 2 L of normal saline due to hypotension. Titrate norepinephrine and use vasopressin if needed Monitor CBC and electrolytes Start the patient IV Zosyn as an empiric antibiotic coverage Monitor urine output Monitor pulse in the lower extremities, pulses are obtained by Doppler Continue albuterol nebulizer treatments 4 times a day [id number] IV Solu-Medrol 60 mg every 6 hours Condition is obviously critical. Will continue to follow and make further recommendations based on his progress. Evaluation was done and 40 minutes Time with Patient: Greater than 30
--- NOTE | 2024-08-14 19:59 | P.PCN ---
Date of Procedure: 08/14/24 Preoperative Diagnosis: COPD exacerbation with acute hypercapnic respiratory failure Postoperative Diagnosis: Same Procedure(s) Performed: Intubation Surgeon: Tonya Cowan Estimated Blood Loss (ml): 0 Pathology: other Condition: critical Disposition: ICU Operative Findings: Indication: Respiratory compromise. A time-out was completed verifying correct patient, procedure, site, positioning, and implant(s) or special equipment if applicable. The patient was positioned appropriately and a #8 endotracheal tube was placed under direct laryngoscopy. The tube was anchored at 22 cm at the teeth. Correct placement was confirmed by presence of bilateral breath sounds without air sounds in the abdomen on auscultation. An end-tidal CO2 monitor was also used to confirm tracheal placement of the ET tube. A chest x-ray was ordered to assess for pneumothorax and verify endotracheal tube placement. The patient tolerated the procedure well and there were no complications.
[2024-08-14] MEDS: NOREPINEPHRINE 8 MG in SODIUM CHLORIDE 0.9% 250 ML IV SCH (20:30)
[2024-08-14] MEDS: CHLORHEXIDINE GLUCONATE 15 ML CUP MUCOUS MEM SCH (22:00)
[2024-08-14] MEDS: METOPROLOL TARTRATE 25 MG TAB PO SCH (22:00)
[2024-08-15 03:42] LABS: Anisocytosis Slight; Basophils % (A) 0 %; Eosinophils % (A) 0 %; HCT 24.3 % (39.0-53.0); HGB 7.6 gm/dL (13.0-17.5); Hypochromasia Moderate; Lymphocytes # (A) 0.4 k/uL (1.0-4.8); Lymphocytes % (A) 3 %; MCH 27.1 pg (25.0-35.0); MCHC 31.1 g/dL (31.0-37.0); MCV 87.1 fL (80.0-100.0); Mean Platelet Volume 9.1; Monocytes # (A) 0.6 k/uL (0-1.0); Monocytes % (A) 4 %; Neutrophils # (A) 13.6 k/uL (1.3-7.7); Neutrophils % (A) 92 %; Platelet Count 186 k/uL (150-450); Poikilocytosis Moderate; RBC 2.79 m/uL (4.30-5.90); RDW 16.7 % (11.5-15.5); WBC 14.7 k/uL (3.8-10.6)
[2024-08-15 04:17] LABS: ALT 21 U/L (4-49); AST 71 U/L (17-59); African American GFR (CKD) 58 (>60 ml/min/1.73 sqM); Albumin 2.4 g/dL (3.5-5.0); Alkaline Phosphatase 51 U/L (38-126); Anion Gap 11 mmol/L; Blood Urea Nitrogen 42 mg/dL (9-20); Calcium 7.5 mg/dL (8.4-10.2); Carbon Dioxide 17 mmol/L (22-30); Chloride 116 mmol/L (98-107); Glucose 145 mg/dL (74-99); Magnesium 1.9 mg/dL (1.6-2.3); Non-African American GFR(CKD) 50 (>60 ml/min/1.73 sqM); Potassium 4.4 mmol/L (3.5-5.1); Sodium 144 mmol/L (137-145); Total Bilirubin 0.6 mg/dL (0.2-1.3); Total Protein 4.4 g/dL (6.3-8.2)
[2024-08-15 04:59] LABS: ABG Base Excess -9.8 mmol/L; ABG HCO3 17 mmol/L (21-25); ABG PCO2 38 mmHg (35-45); ABG PH 7.25 (7.35-7.45); ABG PO2 173 mmHg (83-108); ABG TCO2 18 mmol/L (19-24)
[2024-08-15 05:34] LABS: Allen Test Performed? no
[2024-08-15] MEDS: MAGNESIUM SULFATE-D5W PMX 1 GM in DEXTROSE/WATER 1 100ML.BAG IVPB ONE (05:48)
--- NOTE | 2024-08-15 06:57 | XR ---
EXAMINATION TYPE: XR chest 1V portable DATE OF EXAM: 08/15/2024 CLINICAL INDICATION: Male, 78 years old with history of Tube placement, progress study. TECHNIQUE: Single AP portable semiupright view of the chest is obtained. COMPARISON: Chest x-ray from one day earlier and older studies. FINDINGS: Stable endotracheal and orogastric tubes. Multifocal increased opacities bilaterally are redemonstrated. Cardiac silhouette size is stable and within normal limits. Osseous structures are intact. IMPRESSION: Suspect multifocal acute infiltrates on background chronic parenchymal fibrosis. No signi ficant change from one day earlier. [facility], , 08/15/2024 6:54 AM
--- NOTE | 2024-08-15 10:19 | P.PN ---
Subjective Progress Note Date: 08/15/24 Principal diagnosis: Ruptured infrarenal AAA Patient is seen and examined today as a follow-up. He is postop day #2 for endovascular abdominal aorta repair and percutaneous balloon angioplasty of bilateral common iliac arteries and stent placement. Yesterday afternoon patient's respiratory status became compromised and he was subsequently intubated. He is currently sedated and intubated. He was also started on pressors which are currently being weaned. Tachycardia improved. Urine output improved. He does have an OG tube and nursing recorded 600 mL gastric output. Patient had a drop in his hemoglobin from yesterday to 7.6, platelet count 186,000 patient is afebrile. Temperature 97.7 heart rate 64 blood pressure 93/52, currently on mechanical ventilation FiO2 40 oxygen saturation 100% Objective - Vital Signs Vital signs: Vital Signs Temp 97.8 F 08/15/24 04:00 Pulse 62 08/15/24 07:00 Resp 28 H 08/15/24 07:00 BP 96/52 08/15/24 07:00 Pulse Ox 100 08/15/24 06:45 FiO2 40 08/15/24 06:00 Intake & Output 08/14/24 08/15/24 08/15/24 18:59 06:59 18:59 Intake Total 4498.861 2435.092 153 Output Total 590 635 40 Balance 3908.861 1800.092 113 Weight 60.3 kg Intake: IV 3404 1936 153 A line 54 36 3 Piperacillin-Tazobactam 3 100 .375 gm In Sodium Chloride 0.9% 100 ml @ 25 mls/hr IVPB Q8HR [facility] Rx# :[id number] Sodium Chloride 0.9% 1, 1350 1800 150 000 ml @ 150 mls/hr IV . Q6H40M [facility] Rx#:[id number] Sodium Chloride 0.9% 1, 2000 000 ml @ 999 mls/hr IV Q65M [facility] Rx#:[id number] Intake, IV Titration 364.861 499.092 Amount Calcium Gluconate in NaCl 100 2 gm In Saline 1 100ml. bag @ 100 mls/hr IVPB ONCE ONE Rx#:[id number] Norepinephrine 4 mg In 254.000 Sodium Chloride 0.9% 250 ml @ 0.03 MCG/KG/MIN 6. 207 mls/hr IV .Q24H [facility] Rx#:[id number] Norepinephrine 8 mg In 258.000 Sodium Chloride 0.9% 250 ml @ 0.03 MCG/KG/MIN 3. 152 mls/hr IV .Q24H [facility] Rx#:[id number] propofoL 1,000 mg In 10.861 241.092 Empty Bag 1 bag @ 15 MCG/ KG/MIN 4.887 mls/hr IV . [id number] [facility] Rx#:[id number] Oral 730 Output: Gastric Drainage 500 100 Urine 90 535 40 Other: Voiding Method Indwelling Catheter Indwelling Catheter ABP, PAP, CO, CI - Last Documented Arterial Blood Pressure 98/47 - Exam General appearance: The patient is sedated and intubated HET: Head is normocephalic and atraumatic. Neck: Supple. Heart: Regular. Tachycardic. Lungs: Equal expansion, increased respiratory effort. Diminished. Abdomen: Soft, nondistended, hypoactive bowel sounds. Extremities: Normal skin color and turgor. Palpable DP pulses bilaterally. Neurological: Sedated and intubated. - Labs CBC & Chem 7: 08/15/24 03:15 08/15/24 03:15 Labs: Abnormal Lab Results - Last 24 Hours (Table) 08/13/24 08/14/24 08/14/24 Range/Units 05:50 14:10 14:27 WBC 20.7 H (3.8-10.6) k/uL RBC 2.91 L (4.30-5.90) m/uL Hgb 8.1 L (13.0-17.5) gm/dL Hct 25.1 L (39.0-53.0) % RDW 15.8 H (11.5-15.5) % Plt Count 148 L (150-450) k/uL Neutrophils # (1.3-7.7) k/uL Lymphocytes # (1.0-4.8) k/uL ABG pH 7.10 L* (7.35-7.45) ABG pCO2 72 H* (35-45) mmHg ABG pO2 159 H (83-108) mmHg ABG HCO3 (21-25) mmol/L ABG Total CO2 25 H (19-24) mmol/L ABG O2 Saturation 99.4 H (94-97) % Hemoglobin 8.2 L (13.0-17.5) gm/dL Chloride (98-107) mmol/L Carbon Dioxide (22-30) mmol/L BUN (9-20) mg/dL Creatinine (0.66-1.25) mg/dL Glucose (74-99) mg/dL Calcium (8.4-10.2) mg/dL AST (17-59) U/L Total Protein (6.3-8.2) g/dL Albumin (3.5-5.0) g/dL Crossmatch See Detail 08/14/24 08/15/24 08/15/24 Range/Units 16:16 03:15 03:15 WBC 14.7 H (3.8-10.6) k/uL RBC 2.79 L (4.30-5.90) m/uL Hgb 7.6 L (13.0-17.5) gm/dL Hct 24.3 L (39.0-53.0) % RDW 16.7 H (11.5-15.5) % Plt Count (150-450) k/uL Neutrophils # 13.6 H (1.3-7.7) k/uL Lymphocytes # 0.4 L (1.0-4.8) k/uL ABG pH 7.18 L* (7.35-7.45) ABG pCO2 53 H (35-45) mmHg ABG pO2 >420 H (83-108) mmHg ABG HCO3 20 L (21-25) mmol/L ABG Total CO2 (19-24) mmol/L ABG O2 Saturation >100.0 H (94-97) % Hemoglobin 7.1 L (13.0-17.5) gm/dL Chloride 116 H (98-107) mmol/L Carbon Dioxide 17 L (22-30) mmol/L BUN 42 H (9-20) mg/dL Creatinine 1.35 H (0.66-1.25) mg/dL Glucose 145 H (74-99) mg/dL Calcium 7.5 L (8.4-10.2) mg/dL AST 71 H (17-59) U/L Total Protein 4.4 L (6.3-8.2) g/dL Albumin 2.4 L (3.5-5.0) g/dL Crossmatch 08/15/24 Range/Units 04:58 WBC (3.8-10.6) k/uL RBC (4.30-5.90) m/uL Hgb (13.0-17.5) gm/dL Hct (39.0-53.0) % RDW (11.5-15.5) % Plt Count (150-450) k/uL Neutrophils # (1.3-7.7) k/uL Lymphocytes # (1.0-4.8) k/uL ABG pH 7.25 L (7.35-7.45) ABG pCO2 (35-45) mmHg ABG pO2 173 H (83-108) mmHg ABG HCO3 17 L (21-25) mmol/L ABG Total CO2 18 L (19-24) mmol/L ABG O2 Saturation 100.0 H (94-97) % Hemoglobin 7.3 L (13.0-17.5) gm/dL Chloride (98-107) mmol/L Carbon Dioxide (22-30) mmol/L BUN (9-20) mg/dL Creatinine (0.66-1.25) mg/dL Glucose (74-99) mg/dL Calcium (8.4-10.2) mg/dL AST (17-59) U/L Total Protein (6.3-8.2) g/dL Albumin (3.5-5.0) g/dL Crossmatch Assessment and Plan Assessment: 1. Ruptured 12.5 infrarenal abdominal aortic aneurysm status post percutaneous endovascular aortic repair 2. Hemorrhagic shock secondary to above, status post 5 units of packed RBC and 4 units of FFP 3. Bilateral common iliac artery stenosis status post percutaneous transluminal balloon angioplasty and stent placement 4. Acute blood loss anemia secondary to ruptured infrarenal abdominal aortic aneurysm 5. Acute hypercapnic respiratory failure likely secondary to COPD exacerbation, currently intubated on mechanical ventilator 6. COPD 7. Smoker 8. Hypertension 9. Hyperlipidemia 10. 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 Patient is post percutaneous endovascular abdominal aortic repair with bilateral common iliac artery balloon angioplasty and stent placement 2. Transfuse 1 unit of PRBC 3. Repeat CBC this evening, Daily CBC 4. 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 Will continue to follow along closely 6. Recommend smoking cessation. Discussed with patient importance of smoking cessation. Quit smoking hotline 1 800 quit-now given to patient on discharge. Thank you for this consultation, we will continue to follow along. The impression and plan of care has been dictated as directed. Dr. Robles I performed a history and examination of this patient, discussed the same with the dictator. I agree with the dictator's note ,documented as a scribe. Any additional findings or plans will be noted.
[2024-08-15] MEDS: CALCIUM GLUCONATE IN NACL 2 GM in SALINE 1 100ML.BAG IVPB ONE (11:39)
[2024-08-15 12:25] LABS: Glucose,Whole Blood 164 mg/dL (70-110)
[2024-08-15 13:53] LABS: Anisocytosis Slight; Basophils % (A) 0 %; Eosinophils % (A) 0 %; HCT 30.2 % (39.0-53.0); Hypochromasia Slight; Lymphocytes # (A) 0.5 k/uL (1.0-4.8); Lymphocytes % (A) 3 %; MCH 28.2 pg (25.0-35.0); MCHC 31.7 g/dL (31.0-37.0); MCV 89.1 fL (80.0-100.0); Mean Platelet Volume 8.5; Monocytes # (A) 0.4 k/uL (0-1.0); Monocytes % (A) 3 %; Neutrophils # (A) 13.7 k/uL (1.3-7.7); Neutrophils % (A) 94 %; Platelet Count 185 k/uL (150-450); Poikilocytosis Moderate; RBC 3.39 m/uL (4.30-5.90); RDW 16.8 % (11.5-15.5); WBC 14.7 k/uL (3.8-10.6)
[2024-08-15 13:56] LABS: HGB 9.6 gm/dL (13.0-17.5)
--- NOTE | 2024-08-15 14:19 | P.PN ---
Subjective Progress Note Date: 08/15/24 This is a 78-year-old male patient who presented to the emergency department with acute abdominal pain. The patient underwent a CTA of the aorta with runoff and the patient was found to have an i infrarenal abdominal aortic aneurysm measuring 11.4 x 11.8 cm in size and prominent concentric atherosclerotic plaque and adjacent stranding. This was consistent with rupture with a large hematoma in the retroperitoneal space. Emergent vascular consultation was obtained and the patient was taken to the [facility] and the patient underwent a endovascular aortic repair with AFX II device and the patient also underwent percutaneous transluminal balloon angioplasty of bilateral common iliac arteries, percut aneous transluminal stent placement in the bilateral common iliac arteries due to severe stenosis and percutaneous closure of the bilateral femoral arteries with Perclose x 2 and left Angio-Seal. Postop, the patient was brought into the intensive care unit. At the time of his arrival, the patient was on 6 L of oxygen simple mask. His cardiac rhythm is sinus although the patient was still tachycardic and borderline hypotensive with a BP of 84/50. Noted, in the emergency the patient was initially started on esmolol drip. Subsequently, due to hypotension, the drip was discontinued and the patient was given a combination of Kwesi-Synephrine and vasopressin. At the time of arrival to the ICU, the patient was on no pressors. The patient has already received a total of 4 units of packed RBC and 4 units of fresh frozen plasma. Pulses in the lower extremities are diminished at the present. The patient also has a left IJ cordis and an arterial line in place. Awake and alert and communicating. The white cell count was at 15.6 with a hemoglobin 11.8 at time of admission and a platelet count of 421. Patient also had a sodium level of 135, BUN of 23 and a creatinine of 0.4. Normal LFTs. Normal amylase and lipase. Troponins were negative. The patient has no chest pain. No significant respiratory distress at this point in time. He is known to have COPD with an FEV1 of 38 to 42% of predicted and chronic hypoxic respiratory failure. He is also known to have hypertension hyperlipidemia and previous history of cutaneous T-cell lymphoma, mycosis fungoides. On 08/14/2024, patient is being seen for a follow-up. Earlier this morning, the patient's breathing was quite labored even at rest. He was increasingly bronchospastic and wheezy. The same time, he was still awake and alert and communicating. He was on oxygen 2 L/min nasal cannula. He was given bronchodilators and she was also started on steroids. Later on, by afternoon, the patient became more obtunded and lethargic and weak. At that point, a blood gas was done that showed a pH of 7.1 with a pCO2 of 72 and pO2 of 156 and based on that, the patient was intubated and placed on the mechanical ventilator. He is currently on assist-control mode of mechanical ventilation at rate of 20, tidal volume of 350, FiO2 of 100% with a PEEP of 5. Awaiting follow-up blood gases. Postintubation chest x-ray showed COPD with bilateral hyperinflation. Orogastric tube was in high position needed to be advanced. Orotracheal tube was in satisfactory position. The patient has subtle scattered opacities bilaterally. Postintubation, the patient encountered significant hypotension. The patient was immediately given 2 L of IV fluids nasal cannula and the patient was started on norepinephrine for blood pressure support. Noted, prior to that, the patient was on no pressors and the patient was doing well emergency at rate of 100 cc an hour. He continues to be sinus tachycardia. Repeat blood work was done and the patient white cell count of 20.7 with a hemoglobin of 8.1 and a platelet count of 143. Hemoglobin has remained stable at 8.1. BUN 32 with a creatinine of 0.9 and sodium levels at 139 and potassium level is at 4.4. Pulses lower extremities are diminished. They are obtainable by Doppler signal. On 08/15/2024, the patient is being seen for a follow-up. As stated, the patient was intubated yesterday due to acute hypercapnic respiratory failure due to his advanced COPD. This morning, the patient remains intubated on mechanical ventilator. On propofol running at 50 mcg/kg/min. He is on assist-control mode of mechanical ventilation at rate of 28, tidal volume of 350, FiO2 of 40% and a PEEP of 5. Blood gas showed a pH of 7.25 with a pCO2 of 38 and pO2 of 173. The follow-up chest x-ray from today shows adequate positioning of the orotracheal tube. The patient also has stable multifocal acute infiltrates in the background in addition to COPD and some leukocytosis. The patient was emp irically started on IV Zosyn. Also, the patient postintubation, the patient became hypotensive and developed an acute kidney injury. This morning, the patient remains on pressors and norepinephrine running at 0.29 mcg/kg/min and patient is also on physiologic dose of vasopressin at 0.03 units. Hemoglobin is at 7.6 and the patient will be given another unit of packed RBC per vascular surgery recommendations. Urine output is in order of 30 to 50 cc an hour. The patient remains on normal saline at rate of 150 cc an hour. He is not in significant positive fluid balance of at least 5.7 L for yesterday of 4.0 L the day prior. Possible lower extremity are diminished at 0 obtainable by Doppler signals. The white cell count is 14.7, hemoglobin 9.6 and a platelet count of 185. S the CBC was obtained following the packed RBC transfusion. Sodium level is at 144, potassium is at 4.4, BUN 42 with a creatinine 1.35 and the patient has developed an acute kidney injury. The patient also has a component of Bettina E acidosis with a serum bicarb of 17. LFTs are normal. Total protein is at 4.4 with an albumin level of 2.4. Echocardiogram was completed on 08/14/2024 and the patient was found to have hyperdynamic LV, moderate amount of pericardial effusion without tamponade physiology. No significant valvular abnormalities noted. The patient also has an orogastric tube in place. There is some greenish bilious material coming of the OG tube and this has been ongoing in the order of 300 cc over the past 12 hours. No indication for an upper GI bleed. Objective - Vital Signs Vital signs: Vital Signs Temp 97.6 F 08/15/24 10:07 Pulse 71 08/15/24 10:07 Resp 28 H 08/15/24 10:07 BP 115/49 08/15/24 10:07 Pulse Ox 100 08/15/24 10:07 FiO2 40 08/15/24 09:49 Intake & Output 08/14/24 08/15/24 08/15/24 18:59 06:59 18:59 Intake Total 4498.861 2435.092 918.532 Output Total 590 635 180 Balance 3908.861 1800.092 738.532 Weight 60.3 kg Intake: IV 3404 1936 721 Piperacillin-Tazobactam 3 100 100 .375 gm In Sodium Chloride 0.9% 100 ml @ 25 mls/hr IVPB Q8HR [facility] Rx# :[id number] Sodium Chloride 0.9% 1, 1350 1800 600 000 ml @ 150 mls/hr IV . Q6H40M [facility] Rx#:[id number] Sodium Chloride 0.9% 1, 2000 000 ml @ 999 mls/hr IV Q65M [facility] Rx#:[id number] pressure bag 54 36 21 Intake, IV Titration 364.861 499.092 197.532 Amount Calcium Gluconate in NaCl 100 2 gm In Saline 1 100ml. bag @ 100 mls/hr IVPB ONCE ONE Rx#:[id number] Norepinephrine 4 mg In 254.000 Sodium Chloride 0.9% 250 ml @ 0.03 MCG/KG/MIN 6. 207 mls/hr IV .Q24H [facility] Rx#:[id number] Norepinephrine 8 mg In 258.000 197.532 Sodium Chloride 0.9% 250 ml @ 0.03 MCG/KG/MIN 3. 152 mls/hr IV .Q24H [facility] Rx#:[id number] propofoL 1,000 mg In 10.861 241.092 Empty Bag 1 bag @ 15 MCG/ KG/MIN 4.887 mls/hr IV . [id number] [facility] Rx#:[id number] Oral 730 Blood Product 0 Unit 0 Output: Gastric Drainage 500 100 Urine 90 535 180 Other: Voiding Method Indwelling Catheter Indwelling Catheter Indwelling Catheter ABP, PAP, CO, CI - Last Documented Arterial Blood Pressure 119/53 - Exam The patient thin and frail with a body mass index of 16.9. Currently sedated with propofol., Comfortable, intubated on mechanical ventilator. Orogastric and orotracheal tube are both in place. Head exam is unremarkable. No scleral icterus or corneal arcus noted. Neck is without jugular venous distension, thyromegaly, or carotid bruits. Carotid upstrokes are brisk bilaterally. Lungs are diminished breath sounds bilaterally and the patient has a barrel loly st Cardiac exam reveals the PMI to be normally sized and situated. Rhythm is regular. First and second heart sounds normal. No murmurs, rubs or gallops. Abdominal exam reveals normal bowel sounds, no masses, no organomegaly and no aortic enlargement. Extremities are nonedematous and both femoral and pedal pulses diminished and they are obtainable by Doppler signal. Femoral pulses are present bilaterally.. Extremities are still cold. No skin mottling. Surgical wound site in the groin area seems to be dry clean and intact. No significant hematoma. Examination of the skin revealed no evidence of significant rashes, suspicious appearing nevi or other concerning lesions. Neurologically, the patient was awake and alert earlier. Based on diminished level of consciousness, and hypercapnic respiratory failure, the patient was sedated and subsequently intubated and placed on the mechanical ventilator. - Labs CBC & Chem 7: 08/15/24 13:17 08/15/24 03:15 Labs: Abnormal Lab Results - Last 24 Hours (Table) 08/13/24 08/14/24 08/14/24 Range/Units 05:50 14:10 14:27 WBC 20.7 H (3.8-10.6) k/uL RBC 2.91 L (4.30-5.90) m/uL Hgb 8.1 L (13.0-17.5) gm/dL Hct 25.1 L (39.0-53.0) % RDW 15.8 H (11.5-15.5) % Plt Count 148 L (150-450) k/uL Neutrophils # (1.3-7.7) k/uL Lymphocytes # (1.0-4.8) k/uL ABG pH 7.10 L* (7.35-7.45) ABG pCO2 72 H* (35-45) mmHg ABG pO2 159 H (83-108) mmHg ABG HCO3 (21-25) mmol/L ABG Total CO2 25 H (19-24) mmol/L ABG O2 Saturation 99.4 H (94-97) % Hemoglobin 8.2 L (13.0-17.5) gm/dL Chloride (98-107) mmol/L Carbon Dioxide (22-30) mmol/L BUN (9-20) mg/dL Creatinine (0.66-1.25) mg/dL Glucose (74-99) mg/dL Calcium (8.4-10.2) mg/dL AST (17-59) U/L Total Protein (6.3-8.2) g/dL Albumin (3.5-5.0) g/dL Crossmatch See Detail 08/14/24 08/15/24 08/15/24 Range/Units 16:16 03:15 03:15 WBC 14.7 H (3.8-10.6) k/uL RBC 2.79 L (4.30-5.90) m/uL Hgb 7.6 L (13.0-17.5) gm/dL Hct 24.3 L (39.0-53.0) % RDW 16.7 H (11.5-15.5) % Plt Count (150-450) k/uL Neutrophils # 13.6 H (1.3-7.7) k/uL Lymphocytes # 0.4 L (1.0-4.8) k/uL ABG pH 7.18 L* (7.35-7.45) ABG pCO2 53 H (35-45) mmHg ABG pO2 >420 H (83-108) mmHg ABG HCO3 20 L (21-25) mmol/L ABG Total CO2 (19-24) mmol/L ABG O2 Saturation >100.0 H (94-97) % Hemoglobin 7.1 L (13.0-17.5) gm/dL Chloride 116 H (98-107) mmol/L Carbon Dioxide 17 L (22-30) mmol/L BUN 42 H (9-20) mg/dL Creatinine 1.35 H (0.66-1.25) mg/dL Glucose 145 H (74-99) mg/dL Calcium 7.5 L (8.4-10.2) mg/dL AST 71 H (17-59) U/L Total Protein 4.4 L (6.3-8.2) g/dL Albumin 2.4 L (3.5-5.0) g/dL Crossmatch 08/15/24 Range/Units 04:58 WBC (3.8-10.6) k/uL RBC (4.30-5.90) m/uL Hgb (13.0-17.5) gm/dL Hct (39.0-53.0) % RDW (11.5-15.5) % Plt Count (150-450) k/uL Neutrophils # (1.3-7.7) k/uL Lymphocytes # (1.0-4.8) k/uL ABG pH 7.25 L (7.35-7.45) ABG pCO2 (35-45) mmHg ABG pO2 173 H (83-108) mmHg ABG HCO3 17 L (21-25) mmol/L ABG Total CO2 18 L (19-24) mmol/L ABG O2 Saturation 100.0 H (94-97) % Hemoglobin 7.3 L (13.0-17.5) gm/dL Chloride (98-107) mmol/L Carbon Dioxide (22-30) mmol/L BUN (9-20) mg/dL Creatinine (0.66-1.25) mg/dL Glucose (74-99) mg/dL Calcium (8.4-10.2) mg/dL AST (17-59) U/L Total Protein (6.3-8.2) g/dL Albumin (3.5-5.0) g/dL Crossmatch Microbiology - Last 24 Hours (Table) 08/14/24 14:55 Gram Stain - Preliminary Sputum Assessment and Plan Plan: Assessment Abdominal pain secondary to ruptured abdominal aortic aneurysm and the patient was found to have a 12 cm infrarenal abdominal aortic aneurysm with concentric atherosclerotic plaque and adjacent stranding and large hematoma in the retroperitoneal space. The patient underwent emergent endovascular aortic repair with a AFX 2 device. The patient also underwent percutaneous balloon angioplasty of bilateral common iliac arteries and stent placement in the bilateral common iliacs for severe vascular disease. Currently postop day # 2. Hemorrhagic shock secondary to above. Already received a total of 5 units of packed RBC. He received an additional unit of packed RBC this morning. Noted, postintubation, the patient became quite hypotensive and the patient was started on pressors and currently the patient is on a combination of fluids and nor epinephrine infusion. This morning, the patient is on norepinephrine and vasopressin physiologic dose. Remains in shock. Acute hypercapnic respiratory failure with secondary diminished level of con sciousness secondary COPD exacerbation. Remains intubated on mechanical ventilator. Continues to have a component of respiratory and metabolic acidosis on today's blood gas. Oxygenation is stable. Chest x-ray was noted. Acute blood loss anemia, awaiting follow-up hemoglobin. Secondary to hemor rhagic shock and rupture of the aortic aneurysm. Hemoglobin is stable. Overall, he has received a total of 6 units of packed RBC., Most recent transfusion with packed RBC was done this morning. Acute kidney injury, likely secondary to hypotension/postsurgical ATN COPD, severe with an FEV1 of 38 to 42% of predicted Chronic hypoxic respiratory failure, secondary to COPD History of cutaneous T-cell lymphoma/mycosis fungoides Hypertension Hyperlipidemia BPH Chronic smoker Increased NG output, consider underlying ileus. The patient remains NPO. Plan Keep the patient sedated on propofol and titrate to maintain adequate synchrony with the mechanical ventilator and adequate sedation Titrate oxygen, FiO2 to maintain saturation above 90%, wean down the FiO2 down to 35% Drop the normal saline through the rate of 75 cc an hour Wean off propofol Wean off norepinephrine Titrate norepinephrine and keep the patient on vasopressin physiologic dose Monitor CBC and electrolytes Continue IV Zosyn as an empiric antibiotic coverage Monitor urine output Monitor renal function avoid any nephrotoxic agents Monitor pulse in the lower extremities, pulses are obtained by Doppler Continue albuterol nebulizer treatments 4 times a day [id number] IV Solu-Medrol 60 mg every 6 hours Condition is obviously critical. Will continue to follow and make further recommendations based on his progress. Evaluation was done and 40 minutes Time with Patient: Greater than 30
--- NOTE | 2024-08-15 14:51 | P.PN ---
Subjective Interval History: History of present illness: 78-year-old male patient with past medical tree significant for COPD, aortic aneurysm who presented to ER with a complaint of acute onset abdominal pain and back pain. Patient was afebrile in the ED, was tachycardic and hypotensive, required epinephrine drip. Was saturating 98% on 2 L. Patient denied any fever, chills, sore throat, productive cough, shortness of breath, chest pain, palpitations, dysuria urgency frequency weakness or numbness to extremities, diarrhea or constipation. WBCs were 15.6, hemoglobin 11.8, platelet 87. INR 1.1. Sodium 135 potassium 4.0 chloride 101 CO2 24 BUN 23 creatinine 0.45. Liver profile and lipase was unremarkable. Patient was afebrile tachycardic and hypotensive, required epinephrine drip. Ultrasound showed probable ruptured AAA with pulsatile mass. CT angio showed a large 11.8 cm aneurysm with stranding concerning for rupture. Patient was taken to [facility] for emergent endovascular aortic repair. 08/14--patient was seen and examined today. Son at bedside. Patient feeling better. Afebrile, tachycardic with heart rate in the low 100s, tachypneic with respiratory rate 20, blood pressure is low 107/51. Patient denied any nausea vomiting abdominal pain, dizziness. Currently on 2 L oxygen. Was tachycardic overnight. No flatus. So far 5 units packed RBCs and 4 units of FFP transfusion. Hemoglobin currently stable. Vascular surgery following. ICU following. WBCs 20.1, hemoglobin 9.2, platelet 139. BUN 32, creatinine 0.96. 08/15--patient was seen and examined today. Patient had acute hypercapnic respiratory failure due to his advanced COPD yesterday, ICU was consulted and patient got intubated. Patient remains intubated on mechanical ventilation, on propofol, 40% FiO2 and PEEP of 5. Blood gases showed pH 7.25 with pCO2 38 and pO2 173. Repeat chest x-ray today showed adequate positioning of orotracheal tube. Chest x-ray showed multifocal infiltrates in addition to COPD. Patient also on vasopressorsLevophed and vasopressin. Patient's hemoglobin was 7.6, received another unit of packed RBCs today, total 6 units of packed RBCs so far. On IV fluids due to low blood pressure and decreased urine output. Echocardiogram yesterday showed hyperdynamic LV, moderate amount of pericardial effusion without tamponade. Assessment and plan: Ruptured aortic aneurysm: Hemorrhagic shock: Acute blood loss anemia: Retroperitoneal hematoma: Presented with acute onset abdominal pain and back pain Ultrasound in the ED concerning for probable ruptured AAA with pulsatile mass. Was tachycardic, hypotensive required epinephrine drip. CT angio showed a large 11.8 cm aneurysm with stranding concerning for rupture, with large right retroperitoneal hematoma Patient was taken to [facility] by vascular surgery status post percutaneous endovascular aortic repair, percutaneous transluminal balloon angioplasty of bilateral EUFEMIA, stent placement of bilateral EUFEMIA due to severe stenosis 08/13 Status post 6 units of packed RBCs, 4 units of FFP. Monitor vitals and labs Monitor H&H, transfuse for hemoglobin less than 7.0. Neurovascular checks. Vascular surgery following ICU consulted --- on vasopressors Acute hypoxic hypercapnic respiratory failure requiring intubation mechanical ventilation: Advanced COPD: Acute COPD exacerbation: Pneumonia: Patient required intubation and mechanical ventilation on 08/14 due to acute hypoxic hypercapnic respiratory failure. Chest x-ray showed bilateral infiltrates. ICU consulted and following Nebulizer/bronchodilator protocol, Solu-Medrol Zosyn Hypertension BPH DVT prophylaxis Per vascular surgery Monitor vital signs and labs Labs and medication were reviewed. Continue same treatment. Further recommendations as per clinical course of the patient PHYSICAL EXAMINATION: GENERAL: Intubated, on mechanical ventilation. HEENT: EOMI, Sclerae anicteric, Moist Mucous membranes Neck: Supple, Non tender, No JVD PULMONARY: Decreasedbreath souds B/L, No wheezing, No crackles. CARDIOVASCULAR: S1, S2 present. No murmurs, rubs, or gallops. ABDOMEN: Soft, nontender, nondistended, normoactive bowel sounds. No guarding or rebound tenderness. MUSCULOSKELETAL: No edema, No cyanosis. No clubbing. Normal ROM. Intact peripheral pulses. NEUROLOGICAL: Sedated. REVIEW OF SYSTEMS: Limited review of system, patient currently intubated on mechanical ventilation. Dictation was produced using [employer] software. please excuse any grammatical, word or spelling errors. Objective - Vital Signs Vital signs: Vital Signs Temp 97.7 F 08/15/24 12:00 Pulse 77 08/15/24 14:00 Resp 28 H 08/15/24 14:00 BP 101/55 08/15/24 14:00 Pulse Ox 100 08/15/24 14:00 FiO2 35 08/15/24 12:58 Intake & Output 08/14/24 08/15/24 08/15/24 18:59 06:59 18:59 Intake Total 4498.861 2435.092 1858.709 Output Total 590 635 260 Balance 3908.861 5628.045 1071.709 Weight 60.3 kg 60.3 kg Intake: IV 3404 1936 1133 Calcium Gluconate in NaCl 100 2 gm In Saline 1 100ml. bag @ 100 mls/hr IVPB ONCE ONE Rx#:[id number] Piperacillin-Tazobactam 3 100 100 .375 gm In Sodium Chloride 0.9% 100 ml @ 25 mls/hr IVPB Q8HR [facility] Rx# :[id number] Sodium Chloride 0.9% 1, 1350 1800 900 000 ml @ 75 mls/hr IV . [id number] [facility] Rx#:[id number] Sodium Chloride 0.9% 1, 2000 000 ml @ 999 mls/hr IV Q65M [facility] Rx#:[id number] pressure bag 54 36 33 Intake, IV Titration 364.861 499.092 415.709 Amount Calcium Gluconate in NaCl 100 2 gm In Saline 1 100ml. bag @ 100 mls/hr IVPB ONCE ONE Rx#:[id number] Norepinephrine 4 mg In 254.000 Sodium Chloride 0.9% 250 ml @ 0.03 MCG/KG/MIN 6. 207 mls/hr IV .Q24H [facility] Rx#:[id number] Norepinephrine 8 mg In 258.000 305.615 Sodium Chloride 0.9% 250 ml @ 0.03 MCG/KG/MIN 3. 152 mls/hr IV .Q24H [facility] Rx#:[id number] propofoL 1,000 mg In 10.861 241.092 110.094 Empty Bag 1 bag @ 15 MCG/ KG/MIN 4.887 mls/hr IV . [id number] [facility] Rx#:[id number] Oral 730 Blood Product 310 Rc As-1 Unit 310 [id number] Output: Gastric Drainage 500 100 Urine 90 535 260 Other: Voiding Method Indwelling Catheter Indwelling Catheter Indwelling Catheter ABP, PAP, CO, CI - Last Documented Arterial Blood Pressure 113/48 - Labs CBC & Chem 7: 08/15/24 13:17 08/15/24 03:15 Labs: Abnormal Lab Results - Last 24 Hours (Table) 08/13/24 08/14/24 08/14/24 Range/Units 05:50 14:27 16:16 WBC 20.7 H (3.8-10.6) k/uL RBC 2.91 L (4.30-5.90) m/uL Hgb 8.1 L (13.0-17.5) gm/dL Hct 25.1 L (39.0-53.0) % RDW 15.8 H (11.5-15.5) % Plt Count 148 L (150-450) k/uL Neutrophils # (1.3-7.7) k/uL Lymphocytes # (1.0-4.8) k/uL ABG pH 7.18 L* (7.35-7.45) ABG pCO2 53 H (35-45) mmHg ABG pO2 >420 H (83-108) mmHg ABG HCO3 20 L (21-25) mmol/L ABG Total CO2 (19-24) mmol/L ABG O2 Saturation >100.0 H (94-97) % Hemoglobin 7.1 L (13.0-17.5) gm/dL Chloride (98-107) mmol/L Carbon Dioxide (22-30) mmol/L BUN (9-20) mg/dL Creatinine (0.66-1.25) mg/dL Glucose (74-99) mg/dL POC Glucose (mg/dL) (70-110) mg/dL Calcium (8.4-10.2) mg/dL AST (17-59) U/L Total Protein (6.3-8.2) g/dL Albumin (3.5-5.0) g/dL Crossmatch See Detail 08/15/24 08/15/24 08/15/24 Range/Units 03:15 03:15 04:58 WBC 14.7 H (3.8-10.6) k/uL RBC 2.79 L (4.30-5.90) m/uL Hgb 7.6 L (13.0-17.5) gm/dL Hct 24.3 L (39.0-53.0) % RDW 16.7 H (11.5-15.5) % Plt Count (150-450) k/uL Neutrophils # 13.6 H (1.3-7.7) k/uL Lymphocytes # 0.4 L (1.0-4.8) k/uL ABG pH 7.25 L (7.35-7.45) ABG pCO2 (35-45) mmHg ABG pO2 173 H (83-108) mmHg ABG HCO3 17 L (21-25) mmol/L ABG Total CO2 18 L (19-24) mmol/L ABG O2 Saturation 100.0 H (94-97) % Hemoglobin 7.3 L (13.0-17.5) gm/dL Chloride 116 H (98-107) mmol/L Carbon Dioxide 17 L (22-30) mmol/L BUN 42 H (9-20) mg/dL Creatinine 1.35 H (0.66-1.25) mg/dL Glucose 145 H (74-99) mg/dL POC Glucose (mg/dL) (70-110) mg/dL Calcium 7.5 L (8.4-10.2) mg/dL AST 71 H (17-59) U/L Total Protein 4.4 L (6.3-8.2) g/dL Albumin 2.4 L (3.5-5.0) g/dL Crossmatch 08/15/24 08/15/24 Range/Units 12:24 13:17 WBC 14.7 H (3.8-10.6) k/uL RBC 3.39 L (4.30-5.90) m/uL Hgb 9.6 L D (13.0-17.5) gm/dL Hct 30.2 L (39.0-53.0) % RDW 16.8 H (11.5-15.5) % Plt Count (150-450) k/uL Neutrophils # 13.7 H (1.3-7.7) k/uL Lymphocytes # 0.5 L (1.0-4.8) k/uL ABG pH (7.35-7.45) ABG pCO2 (35-45) mmHg ABG pO2 (83-108) mmHg ABG HCO3 (21-25) mmol/L ABG Total CO2 (19-24) mmol/L ABG O2 Saturation (94-97) % Hemoglobin (13.0-17.5) gm/dL Chloride (98-107) mmol/L Carbon Dioxide (22-30) mmol/L BUN (9-20) mg/dL Creatinine (0.66-1.25) mg/dL Glucose (74-99) mg/dL POC Glucose (mg/dL) 164 H (70-110) mg/dL Calcium (8.4-10.2) mg/dL AST (17-59) U/L Total Protein (6.3-8.2) g/dL Albumin (3.5-5.0) g/dL Crossmatch Microbiology - Last 24 Hours (Table) 08/14/24 14:55 Gram Stain - Preliminary Sputum Sputum Culture - Preliminary Pseudomonas spec
[2024-08-15 16:34] LABS: Anisocytosis Slight; HCT 29.6 % (39.0-53.0); HGB 9.9 gm/dL (13.0-17.5); Hypochromasia Moderate; MCH 29.3 pg (25.0-35.0); MCHC 33.4 g/dL (31.0-37.0); MCV 87.9 fL (80.0-100.0); Mean Platelet Volume 8.1; Platelet Count 179 k/uL (150-450); Poikilocytosis Slight; RBC 3.37 m/uL (4.30-5.90); RDW 16.5 % (11.5-15.5); WBC 16.6 k/uL (3.8-10.6)
[2024-08-15 23:54] LABS: Glucose,Whole Blood 173 mg/dL (70-110)
[2024-08-16 04:57] LABS: Anisocytosis Slight; HCT 29.5 % (39.0-53.0); HGB 9.8 gm/dL (13.0-17.5); Hypochromasia Moderate; MCH 29.3 pg (25.0-35.0); MCHC 33.4 g/dL (31.0-37.0); MCV 87.8 fL (80.0-100.0); Mean Platelet Volume 8.4; Platelet Count 188 k/uL (150-450); Poikilocytosis Moderate; RBC 3.36 m/uL (4.30-5.90); RDW 16.7 % (11.5-15.5); WBC 20.4 k/uL (3.8-10.6)
[2024-08-16 05:07] LABS: African American GFR (CKD) 81 (>60 ml/min/1.73 sqM); Anion Gap 11 mmol/L; Blood Urea Nitrogen 40 mg/dL (9-20); Calcium 8.8 mg/dL (8.4-10.2); Carbon Dioxide 15 mmol/L (22-30); Chloride 119 mmol/L (98-107); Glucose 150 mg/dL (74-99); Magnesium 2.4 mg/dL (1.6-2.3); Non-African American GFR(CKD) 70 (>60 ml/min/1.73 sqM); Potassium 4.4 mmol/L (3.5-5.1); Sodium 145 mmol/L (137-145)
[2024-08-16 06:05] LABS: ABG Base Excess -9.1 mmol/L; ABG HCO3 17 mmol/L (21-25); ABG Oxygen Saturation 99.2 % (94-97); ABG PCO2 38 mmHg (35-45); ABG PH 7.26 (7.35-7.45); ABG PO2 126 mmHg (83-108); ABG TCO2 18 mmol/L (19-24)
[2024-08-16 06:07] LABS: Allen Test Performed? no
[2024-08-16 06:07] LABS: Glucose,Whole Blood 190 mg/dL (70-110)
--- NOTE | 2024-08-16 08:22 | XR ---
EXAMINATION TYPE: XR chest 1V portable DATE OF EXAM: 08/16/2024 5:16 AM COMPARISON: 08/15/2024 CLINICAL INDICATION: Male, 78 years old with history of Tube placement, TECHNIQUE: XR chest 1V portable view(s) obtained. FINDINGS: The heart size is normal. The pulmonary vasculature is somewhat prominent. There may be some mild atelectatic changes at the right base. Minimal left pleural effusion is presen t. Endotracheal tube tip is 4 cm above the gadiel. Nasogastric tube transverses the thorax. IMPRESSION: 1. Minimal left pleural effusion. 2. Right lower lobe atelectasis. 3. There may be some early volume overload. 4. Lines and catheters discussed above. [facility], , 08/16/2024 8:20 AM
[2024-08-16 11:34] LABS: Glucose,Whole Blood 144 mg/dL (70-110)
--- NOTE | 2024-08-16 12:59 | P.PN ---
Subjective Progress Note Date: 08/16/24 This is a 78-year-old male patient who presented to the emergency department with acute abdominal pain. The patient underwent a CTA of the aorta with runoff and the patient was found to have an i infrarenal abdominal aortic aneurysm measuring 11.4 x 11.8 cm in size and prominent concentric atherosclerotic plaque and adjacent stranding. This was consistent with rupture with a large hematoma in the retroperitoneal space. Emergent vascular consultation was obtained and the patient was taken to the [facility] and the patient underwent a endovascular aortic repair with AFX II device and the patient also underwent percutaneous transluminal balloon angioplasty of bilateral common iliac arteries, percut aneous transluminal stent placement in the bilateral common iliac arteries due to severe stenosis and percutaneous closure of the bilateral femoral arteries with Perclose x 2 and left Angio-Seal. Postop, the patient was brought into the intensive care unit. At the time of his arrival, the patient was on 6 L of oxygen simple mask. His cardiac rhythm is sinus although the patient was still tachycardic and borderline hypotensive with a BP of 84/50. Noted, in the emergency the patient was initially started on esmolol drip. Subsequently, due to hypotension, the drip was discontinued and the patient was given a combination of Kwesi-Synephrine and vasopressin. At the time of arrival to the ICU, the patient was on no pressors. The patient has already received a total of 4 units of packed RBC and 4 units of fresh frozen plasma. Pulses in the lower extremities are diminished at the present. The patient also has a left IJ cordis and an arterial line in place. Awake and alert and communicating. The white cell count was at 15.6 with a hemoglobin 11.8 at time of admission and a platelet count of 421. Patient also had a sodium level of 135, BUN of 23 and a creatinine of 0.4. Normal LFTs. Normal amylase and lipase. Troponins were negative. The patient has no chest pain. No significant respiratory distress at this point in time. He is known to have COPD with an FEV1 of 38 to 42% of predicted and chronic hypoxic respiratory failure. He is also known to have hypertension hyperlipidemia and previous history of cutaneous T-cell lymphoma, mycosis fungoides. On 08/14/2024, patient is being seen for a follow-up. Earlier this morning, the patient's breathing was quite labored even at rest. He was increasingly bronchospastic and wheezy. The same time, he was still awake and alert and communicating. He was on oxygen 2 L/min nasal cannula. He was given bronchodilators and she was also started on steroids. Later on, by afternoon, the patient became more obtunded and lethargic and weak. At that point, a blood gas was done that showed a pH of 7.1 with a pCO2 of 72 and pO2 of 156 and based on that, the patient was intubated and placed on the mechanical ventilator. He is currently on assist-control mode of mechanical ventilation at rate of 20, tidal volume of 350, FiO2 of 100% with a PEEP of 5. Awaiting follow-up blood gases. Postintubation chest x-ray showed COPD with bilateral hyperinflation. Orogastric tube was in high position needed to be advanced. Orotracheal tube was in satisfactory position. The patient has subtle scattered opacities bilaterally. Postintubation, the patient encountered significant hypotension. The patient was immediately given 2 L of IV fluids nasal cannula and the patient was started on norepinephrine for blood pressure support. Noted, prior to that, the patient was on no pressors and the patient was doing well emergency at rate of 100 cc an hour. He continues to be sinus tachycardia. Repeat blood work was done and the patient white cell count of 20.7 with a hemoglobin of 8.1 and a platelet count of 143. Hemoglobin has remained stable at 8.1. BUN 32 with a creatinine of 0.9 and sodium levels at 139 and potassium level is at 4.4. Pulses lower extremities are diminished. They are obtainable by Doppler signal. On 08/15/2024, the patient is being seen for a follow-up. As stated, the patient was intubated yesterday due to acute hypercapnic respiratory failure due to his advanced COPD. This morning, the patient remains intubated on mechanical ventilator. On propofol running at 50 mcg/kg/min. He is on assist-control mode of mechanical ventilation at rate of 28, tidal volume of 350, FiO2 of 40% and a PEEP of 5. Blood gas showed a pH of 7.25 with a pCO2 of 38 and pO2 of 173. The follow-up chest x-ray from today shows adequate positioning of the orotracheal tube. The patient also has stable multifocal acute infiltrates in the background in addition to COPD and some leukocytosis. The patient was emp irically started on IV Zosyn. Also, the patient postintubation, the patient became hypotensive and developed an acute kidney injury. This morning, the patient remains on pressors and norepinephrine running at 0.29 mcg/kg/min and patient is also on physiologic dose of vasopressin at 0.03 units. Hemoglobin is at 7.6 and the patient will be given another unit of packed RBC per vascular surgery recommendations. Urine output is in order of 30 to 50 cc an hour. The patient remains on normal saline at rate of 150 cc an hour. He is not in significant positive fluid balance of at least 5.7 L for yesterday of 4.0 L the day prior. Possible lower extremity are diminished at 0 obtainable by Doppler signals. The white cell count is 14.7, hemoglobin 9.6 and a platelet count of 185. S the CBC was obtained following the packed RBC transfusion. Sodium level is at 144, potassium is at 4.4, BUN 42 with a creatinine 1.35 and the patient has developed an acute kidney injury. The patient also has a component of Bettina E acidosis with a serum bicarb of 17. LFTs are normal. Total protein is at 4.4 with an albumin level of 2.4. Echocardiogram was completed on 08/14/2024 and the patient was found to have hyperdynamic LV, moderate amount of pericardial effusion without tamponade physiology. No significant valvular abnormalities noted. The patient also has an orogastric tube in place. There is some greenish bilious material coming of the OG tube and this has been ongoing in the order of 300 cc over the past 12 hours. No indication for an upper GI bleed. On 08/16/2024, the patient is being seen in follow-up in intensive care unit. This morning, the patient remains on propofol which is running at 25 mcg/kg/min. The patient is calm and comfortable and synchronous on mechanical ventilator. The patient remains on assist-control rate of 28, tidal volume of 350, FiO2 35% with a PEEP of 5. Blood gas showed a pH of 7.26 with a pCO2 of 38 and pO2 of 126. Chest x-ray from today shows small left-sided pleural effusion, right basilar atelectasis and there are some signs of early volume overload. Clinically, the patient is significantly in a positive fluid balance and volume overload. The patient has developed scrotal and bilateral lower and upper extremity edema. There is also some oozing of fluid from the surgical sites in the groins bilaterally. Fluid balance has been +9.2 L over the past 24 hours. Remains on NS at a rate of 75 cc an hour. Remains on pressors and the patient was on norepinephrine at 0.21 mcg/kg/min and this was reduced down to 0.1 mcg and the patient remains on vasopressin physiologic dose. Urine output is order of 50 to 75 cc an hour. Fluid balance +9 L at least over the past 24 hours. Afebrile. White cell count of 20.4 and the patient is currently on empiric antibiotic coverage with IV Zosyn. Hemoglobin is 9.8 and a platelet count of 188. BUN is 40 with a creatinine of 1.02 and serum bicarbonate 15 with an anion gap of 11. Glucose at 190. The patient remains n.p.o. as the patient was having increased output from the NG tube. The output has improved over the past 12 hours and the patient will be started or given a trial of enteral feeding for nutritional support. Objective - Vital Signs Vital signs: Vital Signs Temp 98.5 F 08/16/24 12:00 Pulse 63 08/16/24 12:00 Resp 14 08/16/24 12:00 BP 92/53 08/16/24 12:00 Pulse Ox 100 08/16/24 12:00 FiO2 35 08/16/24 12:00 Intake & Output 08/15/24 08/16/24 08/16/24 18:59 06:59 18:59 Intake Total 2531.998 8826.319 449.128 Output Total 630 1365 285 Balance 6704.713 2682.319 164.128 Weight 60.3 kg Intake: IV 1707 8451 250 Calcium Gluconate in NaCl 100 2 gm In Saline 1 100ml. bag @ 100 mls/hr IVPB ONCE ONE Rx#:[id number] Piperacillin-Tazobactam 3 200 75 .375 gm In Sodium Chloride 0.9% 100 ml @ 25 mls/hr IVPB Q8HR [facility] Rx# :[id number] Sodium Chloride 0.9% 1, 1350 8400 160 000 ml @ 10 mls/hr IV . Q24H [facility] Rx#:[id number] pressure bag 57 51 15 Intake, IV Titration 514.998 375.319 199.128 Amount Norepinephrine 8 mg In 360.269 154.978 199.128 Sodium Chloride 0.9% 250 ml @ 0.03 MCG/KG/MIN 3. 152 mls/hr IV .Q24H [facility] Rx#:[id number] Vasopressin 60 unit In 123.089 Sodium Chloride 0.9% 150 ml @ 0.03 UNITS/MIN 4.59 mls/hr IV .Q24H [facility] Rx#: [id number] propofoL 1,000 mg In 154.729 97.252 Empty Bag 1 bag @ 15 MCG/ KG/MIN 4.887 mls/hr IV . [id number] [facility] Rx#:[id number] Blood Product 310 Rc As-1 Unit 310 [id number] Output: Gastric Drainage 450 Urine 630 915 285 Other: Voiding Method Indwelling Catheter Indwelling Catheter Indwelling Catheter ABP, PAP, CO, CI - Last Documented Arterial Blood Pressure 90/45 - Exam The patient thin and frail with a body mass index of 16.9. Currently sedated with propofol., Comfortable, intubated on mechanical ventilator. Orogastric and orotracheal tube are both in place. Head exam is unremarkable. No scleral icterus or corneal arcus noted. Neck is without jugular venous distension, thyromegaly, or carotid bruits. Carotid upstrokes are brisk bilaterally. Lungs are diminished breath sounds bilaterally and the patient has a barrel chest Cardiac exam reveals the PMI to be normally sized and situated. Rhythm is regular. First and second heart sounds normal. No murmurs, rubs or gallops. Abdominal exam reveals normal bowel sounds, no masses, no organomegaly and no aortic enlargement. Extremities are nonedematous and both femoral and pedal pulses diminished and they are obtainable by Doppler signal. Femoral pulses are present bilaterally.. Extremities are still cold. No skin mottling. Surgical wound site in the groin area seems to be dry clean and intact. No significant hematoma. There is significant edema in lower extremities and the patient has also developed scrotal edema. There is also edema in the upper extremities. Examination of the skin revealed no evidence of significant rashes, suspicious appearing nevi or other concerning lesions. Neurologically, the patient was awake and alert earlier. Based on diminished level of consciousness, and hypercapnic respiratory failure, the patient was sedated and subsequently intubated and placed on the mechanical ventilator. - Labs CBC & Chem 7: 08/16/24 04:34 08/16/24 04:34 Labs: Abnormal Lab Results - Last 24 Hours (Table) 08/15/24 08/15/24 08/15/24 Range/Units 13:17 16:21 23:52 WBC 14.7 H 16.6 H (3.8-10.6) k/uL RBC 3.39 L 3.37 L (4.30-5.90) m/uL Hgb 9.6 L D 9.9 L (13.0-17.5) gm/dL Hct 30.2 L 29.6 L (39.0-53.0) % RDW 16.8 H 16.5 H (11.5-15.5) % Neutrophils # 13.7 H (1.3-7.7) k/uL Lymphocytes # 0.5 L (1.0-4.8) k/uL ABG pH (7.35-7.45) ABG pO2 (83-108) mmHg ABG HCO3 (21-25) mmol/L ABG Total CO2 (19-24) mmol/L ABG O2 Saturation (94-97) % Hemoglobin (13.0-17.5) gm/dL Chloride (98-107) mmol/L Carbon Dioxide (22-30) mmol/L BUN (9-20) mg/dL Glucose (74-99) mg/dL POC Glucose (mg/dL) 173 H (70-110) mg/dL Magnesium (1.6-2.3) mg/dL 08/16/24 08/16/24 08/16/24 Range/Units 04:34 04:34 06:00 WBC 20.4 H (3.8-10.6) k/uL RBC 3.36 L (4.30-5.90) m/uL Hgb 9.8 L (13.0-17.5) gm/dL Hct 29.5 L (39.0-53.0) % RDW 16.7 H (11.5-15.5) % Neutrophils # (1.3-7.7) k/uL Lymphocytes # (1.0-4.8) k/uL ABG pH 7.26 L (7.35-7.45) ABG pO2 126 H (83-108) mmHg ABG HCO3 17 L (21-25) mmol/L ABG Total CO2 18 L (19-24) mmol/L ABG O2 Saturation 99.2 H (94-97) % Hemoglobin 9.6 L (13.0-17.5) gm/dL Chloride 119 H (98-107) mmol/L Carbon Dioxide 15 L (22-30) mmol/L BUN 40 H (9-20) mg/dL Glucose 150 H (74-99) mg/dL POC Glucose (mg/dL) (70-110) mg/dL Magnesium 2.4 H (1.6-2.3) mg/dL 08/16/24 08/16/24 Range/Units 06:06 11:32 WBC (3.8-10.6) k/uL RBC (4.30-5.90) m/uL Hgb (13.0-17.5) gm/dL Hct (39.0-53.0) % RDW (11.5-15.5) % Neutrophils # (1.3-7.7) k/uL Lymphocytes # (1.0-4.8) k/uL ABG pH (7.35-7.45) ABG pO2 (83-108) mmHg ABG HCO3 (21-25) mmol/L ABG Total CO2 (19-24) mmol/L ABG O2 Saturation (94-97) % Hemoglobin (13.0-17.5) gm/dL Chloride (98-107) mmol/L Carbon Dioxide (22-30) mmol/L BUN (9-20) mg/dL Glucose (74-99) mg/dL POC Glucose (mg/dL) 190 H 144 H (70-110) mg/dL Magnesium (1.6-2.3) mg/dL Microbiology - Last 24 Hours (Table) 08/14/24 14:55 Gram Stain - Preliminary Sputum Sputum Culture - Preliminary Pseudomonas spec Assessment and Plan Plan: Assessment Abdominal pain secondary to ruptured abdominal aortic aneurysm and the patient was found to have a 12 cm infrarenal abdominal aortic aneurysm with concentric atherosclerotic plaque and adjacent stranding and large hematoma in the retroperitoneal space. The patient underwent emergent endovascular aortic repair with a AFX 2 device. The patient also underwent percutaneous balloon angioplasty of bilateral common iliac arteries and stent placement in the bilateral common iliacs for severe vascular disease. Currently postop day # 3 Hemorrhagic shock secondary to above. Already received a total of 5 units of packed RBC. He received an additional unit of packed RBC this morning. Noted, postintubation, the patient became quite hypotensive and the patient was started on pressors and currently the patient is on a combination of fluids and norepinephrine infusion. This morning, the patient is on norepinephrine and vasopressin physiologic dose. Remains hypotensive and pressors are being gradually weaned off. Acute hypercapnic respiratory failure with secondary diminished level of consciousness secondary COPD exacerbation. Remains intubated on mechanical vent ilator. Continues to have a component of respiratory and metabolic acidosis on today's blood gas. Oxygenation is stable. Chest x-ray was noted. Acute blood loss anemia, awaiting follow-up hemoglobin. Secondary to hemorrhagic shock and rupture of the aortic aneurysm. Hemoglobin is stable. Overall, he has received a total of 6 units of packed RBC., Most recent transfusion with packed RBC was on 08/15/2024. Hemoglobin stable for now. Volume overload with significant positive fluid balance and increasing edema in upper and lower extremities and scrotal edema. Acute kidney injury, likely secondary to hypotension/postsurgical ATN, improving Non-anion gap metabolic acidosis COPD, severe with an FEV1 of 38 to 42% of predicted Chronic hypoxic respiratory failure, secondary to COPD History of cutaneous T-cell lymphoma/mycosis fungoides Hypertension Hyperlipidemia BPH Chronic smoker Increased NG output, consider underlying ileus. The patient remains NPO. Plan Keep the patient sedated on propofol Continue mechanical ventilator support. No ventilator changes for today. IV fluids to KVO Wean off norepinephrine Titrate norepinephrine and keep the patient on vasopressin physiologic dose Blood cultures x 2 Monitor CBC and electrolytes Continue IV Zosyn as an empiric antibiotic coverage Monitor urine output, urine output is improving and renal function is also improved. Give a trial of vital high-protein enteral feeding for nutrition support at rate of 10 cc an hour Monitor pulse in the lower extremities, pulses are obtained by Doppler Continue albuterol nebulizer treatments 4 times a day [id number] IV Solu-Medrol 60 mg every 6 hours Continue IV Zosyn Condition is obviously critical. Will continue to follow and make further recommendations based on his progress. Evaluation was done and 40 minutes Time with Patient: Greater than 30
--- NOTE | 2024-08-16 14:32 | P.PN ---
Subjective Progress Note Date: 08/16/24 78-year-old male patient with past medical tree significant for COPD, aortic aneurysm who presented to ER with a complaint of acute onset abdominal pain and back pain. Patient was afebrile in the ED, was tachycardic and hypotensive, required epinephrine drip. Was saturating 98% on 2 L. Patient denied any fever, chills, sore throat, productive cough, shortness of breath, chest pain, palpitations, dysuria urgency frequency weakness or numbness to extremities, diarrhea or constipation. WBCs were 15.6, hemoglobin 11.8, platelet 87. INR 1.1. Sodium 135 potassium 4.0 chloride 101 CO2 24 BUN 23 creatinine 0.45. Liver profile and lipase was unremarkable. Patient was afebrile tachycardic and hypotensive, required epinephrine drip. Ultrasound showed probable ruptured AAA with pulsatile mass. CT angio showed a large 11.8 cm aneurysm with stranding concerning for rupture. Patient was taken to [facility] for emergent endovascular aortic repair. 08/14--patient was seen and examined today. Son at bedside. Patient feeling better. Afebrile, tachycardic with heart rate in the low 100s, tachypneic with respiratory rate 20, blood pressure is low 107/51. Patient denied any nausea vomiting abdominal pain, dizziness. Currently on 2 L oxygen. Was tachycardic overnight. No flatus. So far 5 units packed RBCs and 4 units of FFP transfusion. Hemoglobin currently stable. Vascular surgery following. ICU following. WBCs 20.1, hemoglobin 9.2, platelet 139. BUN 32, creatinine 0.96. 08/15--patient was seen and examined today. Patient had acute hypercapnic respiratory failure due to his advanced COPD yesterday, ICU was consulted and patient got intubated. Patient remains intubated on mechanical ventilation, on propofol, 40% FiO2 and PEEP of 5. Blood gases showed pH 7.25 with pCO2 38 and pO2 173. Repeat chest x-ray today showed adequate positioning of orotracheal tube. Chest x-ray showed multifocal infiltrates in addition to COPD. Patient also on vasopressorsLevophed and vasopressin. Patient's hemoglobin was 7.6, received another unit of packed RBCs today, total 6 units of packed RBCs so far. On IV fluids due to low blood pressure and decreased urine output. Echocardiogram yesterday showed hyperdynamic LV, moderate amount of pericardial effusion without tamponade. 08/16. Patient seen and examined. Blood work done today showed WBC 20.4, hemoglobin 9.8, platelet count 188, sodium 141, potassium 4.4, BUN 40, current 1.02, glucose 150 magnesium 2.4. Patient continues to be intubated, currently on FiO2 of 35%. Currently on vasopressin, Levophed. Continues to be on prop ofol. Son at the bedside, updated about patient's progress REVIEW OF SYSTEMS: Review of system cannot be obtained as patient currently intubated PHYSICAL EXAMINATION: GENERAL: The patient is intubated HEENT: Pupils are round and equally reacting to light. EOMI. No scleral icterus. No conjunctival pallor. Normocephalic, atraumatic. No pharyngeal erythema. No thyromegaly. CARDIOVASCULAR: S1 and S2 present. No murmurs, rubs, or gallops. PULMONARY: Chest is clear to auscultation, no wheezing or crackles. ABDOMEN: Soft, nontender, nondistended, normoactive bowel sounds. No palpable organomegaly. MUSCULOSKELETAL: No joint swelling or deformity. EXTREMITIES: No cyanosis, clubbing, or pedal edema. NEUROLOGICAL: Currently intubated SKIN: No rashes. Assessment and plan Ruptured aortic aneurysm: Hemorrhagic shock: Acute blood loss anemia: Retroperitoneal hematoma: Presented with acute onset abdominal pain and back pain Ultrasound in the ED concerning for probable ruptured AAA with pulsatile mass. Was tachycardic, hypotensive required epinephrine drip. CT angio showed a large 11.8 cm aneurysm with stranding concerning for rupture, with large right retroperitoneal hematoma Patient was taken to [facility] by vascular surgery status post percutaneous endovascular aortic repair, percutaneous transluminal balloon angioplasty of bilateral EUFEMIA, stent placement of bilateral EUFEMIA due to severe stenosis 08/13 Status post 6 units of packed RBCs, 4 units of FFP. Monitor vitals and labs Monitor H&H, transfuse for hemoglobin less than 7.0. Neurovascular checks. Vascular surgery following ICU consulted --- on vasopressors Acute hypoxic hypercapnic respiratory failure requiring intubation mechanical ventilation: Advanced COPD: Acute COPD exacerbation: Pneumonia: Patient required intubation and mechanical ventilation on 08/14 due to acute hypoxic hypercapnic respiratory failure. Continue vent management Nebulizer/bronchodilator protocol, Solu-Medrol Zosyn Start tube feeding Hypertension BPH Labs and medication were reviewed.. Continue same treatment. Continue with symptomatic treatment. Resume home medication. Monitor labs and vitals. DVT and GI prophylaxis. Further recommendations as per clinical course of the patient Dictation was produced using [employer] dictation software. please excuse any g rammatical, word or spelling errors. Objective - Vital Signs Vital signs: Vital Signs Temp 98.5 F 08/16/24 08:00 Pulse 80 08/16/24 09:15 Resp 19 08/16/24 09:15 BP 118/70 08/16/24 09:00 Pulse Ox 100 08/16/24 09:15 FiO2 35 08/16/24 08:43 Intake & Output 08/15/24 08/16/24 08/16/24 18:59 06:59 18:59 Intake Total 2531.998 8826.319 194 Output Total 630 1365 185 Balance 7200.749 5003.319 9 Weight 60.3 kg Intake: IV 1707 8451 194 Calcium Gluconate in NaCl 100 2 gm In Saline 1 100ml. bag @ 100 mls/hr IVPB ONCE ONE Rx#:[id number] Piperacillin-Tazobactam 3 200 25 .375 gm In Sodium Chloride 0.9% 100 ml @ 25 mls/hr IVPB Q8HR [facility] Rx# :[id number] Sodium Chloride 0.9% 1, 1350 8400 160 000 ml @ 10 mls/hr IV . Q24H [facility] Rx#:[id number] pressure bag 57 51 9 Intake, IV Titration 514.998 375.319 Amount Norepinephrine 8 mg In 360.269 154.978 Sodium Chloride 0.9% 250 ml @ 0.03 MCG/KG/MIN 3. 152 mls/hr IV .Q24H [facility] Rx#:[id number] Vasopressin 60 unit In 123.089 Sodium Chloride 0.9% 150 ml @ 0.03 UNITS/MIN 4.59 mls/hr IV .Q24H [facility] Rx#: [id number] propofoL 1,000 mg In 154.729 97.252 Empty Bag 1 bag @ 15 MCG/ KG/MIN 4.887 mls/hr IV . [id number] [facility] Rx#:[id number] Blood Product 310 Rc As-1 Unit 310 [id number] Output: Gastric Drainage 450 Urine 630 915 185 Other: Voiding Method Indwelling Catheter Indwelling Catheter ABP, PAP, CO, CI - Last Documented Arterial Blood Pressure 110/49 - Labs CBC & Chem 7: 08/16/24 04:34 08/16/24 04:34 Labs: Abnormal Lab Results - Last 24 Hours (Table) 08/13/24 08/15/24 08/15/24 Range/Units 05:50 12:24 13:17 WBC 14.7 H (3.8-10.6) k/uL RBC 3.39 L (4.30-5.90) m/uL Hgb 9.6 L D (13.0-17.5) gm/dL Hct 30.2 L (39.0-53.0) % RDW 16.8 H (11.5-15.5) % Neutrophils # 13.7 H (1.3-7.7) k/uL Lymphocytes # 0.5 L (1.0-4.8) k/uL ABG pH (7.35-7.45) ABG pO2 (83-108) mmHg ABG HCO3 (21-25) mmol/L ABG Total CO2 (19-24) mmol/L ABG O2 Saturation (94-97) % Hemoglobin (13.0-17.5) gm/dL Chloride (98-107) mmol/L Carbon Dioxide (22-30) mmol/L BUN (9-20) mg/dL Glucose (74-99) mg/dL POC Glucose (mg/dL) 164 H (70-110) mg/dL Magnesium (1.6-2.3) mg/dL Crossmatch See Detail 08/15/24 08/15/24 08/16/24 Range/Units 16:21 23:52 04:34 WBC 16.6 H (3.8-10.6) k/uL RBC 3.37 L (4.30-5.90) m/uL Hgb 9.9 L (13.0-17.5) gm/dL Hct 29.6 L (39.0-53.0) % RDW 16.5 H (11.5-15.5) % Neutrophils # (1.3-7.7) k/uL Lymphocytes # (1.0-4.8) k/uL ABG pH (7.35-7.45) ABG pO2 (83-108) mmHg ABG HCO3 (21-25) mmol/L ABG Total CO2 (19-24) mmol/L ABG O2 Saturation (94-97) % Hemoglobin (13.0-17.5) gm/dL Chloride 119 H (98-107) mmol/L Carbon Dioxide 15 L (22-30) mmol/L BUN 40 H (9-20) mg/dL Glucose 150 H (74-99) mg/dL POC Glucose (mg/dL) 173 H (70-110) mg/dL Magnesium 2.4 H (1.6-2.3) mg/dL Crossmatch 08/16/24 08/16/24 08/16/24 Range/Units 04:34 06:00 06:06 WBC 20.4 H (3.8-10.6) k/uL RBC 3.36 L (4.30-5.90) m/uL Hgb 9.8 L (13.0-17.5) gm/dL Hct 29.5 L (39.0-53.0) % RDW 16.7 H (11.5-15.5) % Neutrophils # (1.3-7.7) k/uL Lymphocytes # (1.0-4.8) k/uL ABG pH 7.26 L (7.35-7.45) ABG pO2 126 H (83-108) mmHg ABG HCO3 17 L (21-25) mmol/L ABG Total CO2 18 L (19-24) mmol/L ABG O2 Saturation 99.2 H (94-97) % Hemoglobin 9.6 L (13.0-17.5) gm/dL Chloride (98-107) mmol/L Carbon Dioxide (22-30) mmol/L BUN (9-20) mg/dL Glucose (74-99) mg/dL POC Glucose (mg/dL) 190 H (70-110) mg/dL Magnesium (1.6-2.3) mg/dL Crossmatch Microbiology - Last 24 Hours (Table) 08/14/24 14:55 Gram Stain - Preliminary Sputum Sputum Culture - Preliminary Pseudomonas spec
[2024-08-16 18:14] LABS: Glucose,Whole Blood 151 mg/dL (70-110)
[2024-08-17 01:00] LABS: Glucose,Whole Blood 163 mg/dL (70-110)
[2024-08-17 04:28] LABS: Anisocytosis Slight; Basophils # (A) 0.1 k/uL (0-0.2); Basophils % (A) 0 %; Eosinophils % (A) 0 %; HCT 28.6 % (39.0-53.0); Hypochromasia Moderate; Lymphocytes # (A) 0.4 k/uL (1.0-4.8); Lymphocytes % (A) 2 %; MCH 28.2 pg (25.0-35.0); MCHC 31.6 g/dL (31.0-37.0); MCV 89.4 fL (80.0-100.0); Mean Platelet Volume 9.1; Monocytes # (A) 0.5 k/uL (0-1.0); Monocytes % (A) 2 %; Neutrophils # (A) 22.8 k/uL (1.3-7.7); Neutrophils % (A) 96 %; Platelet Count 194 k/uL (150-450); Poikilocytosis Moderate; RDW 17.5 % (11.5-15.5); WBC 23.8 k/uL (3.8-10.6)
[2024-08-17 04:43] LABS: African American GFR (CKD) 75 (>60 ml/min/1.73 sqM); Anion Gap 10 mmol/L; Blood Urea Nitrogen 44 mg/dL (9-20); Calcium 9.1 mg/dL (8.4-10.2); Carbon Dioxide 19 mmol/L (22-30); Chloride 119 mmol/L (98-107); Glucose 158 mg/dL (74-99); Magnesium 2.6 mg/dL (1.6-2.3); Non-African American GFR(CKD) 65 (>60 ml/min/1.73 sqM); Potassium 4.3 mmol/L (3.5-5.1); Sodium 148 mmol/L (137-145)
[2024-08-17 05:26] LABS: ABG Base Excess -7.4 mmol/L; ABG HCO3 19 mmol/L (21-25); ABG Oxygen Saturation 99.1 % (94-97); ABG PCO2 41 mmHg (35-45); ABG PH 7.28 (7.35-7.45); ABG PO2 124 mmHg (83-108); ABG TCO2 20 mmol/L (19-24)
[2024-08-17 05:28] LABS: Allen Test Performed? no
[2024-08-17 05:34] LABS: Glucose,Whole Blood 168 mg/dL (70-110)
--- NOTE | 2024-08-17 07:59 | XR ---
EXAMINATION TYPE: XR chest 1V portable DATE OF EXAM: 08/17/2024 4:56 AM COMPARISON: None. CLINICAL INDICATION: Male, 78 years old with history of Tube placement, difficulty breathing TECHNIQUE: XR chest 1V portable view(s) obtained. FINDINGS: The heart size is normal. The pulmonary vasculature is normal. No focal consolidation is evident. Some mild scattered increased lung markings are present similar to comparison. Endotracheal tube tip is 5.4 cm above gadiel. Nasogastric tube transverses the thorax. Left central v enous catheter sheath is present. IMPRESSION: 1. Scattered stable increased lung markings. 2. Lines and catheters discussed above [facility], , 08/17/2024 7:57 AM
--- NOTE | 2024-08-17 10:44 | P.PN ---
Subjective Progress Note Date: 08/17/24 This is a 78-year-old male patient who presented to the emergency department with acute abdominal pain. The patient underwent a CTA of the aorta with runoff and the patient was found to have an i infrarenal abdominal aortic aneurysm measuring 11.4 x 11.8 cm in size and prominent concentric atherosclerotic plaque and adjacent stranding. This was consistent with rupture with a large hematoma in the retroperitoneal space. Emergent vascular consultation was obtained and the patient was taken to the [facility] and the patient underwent a endovascular aortic repair with AFX II device and the patient also underwent percutaneous transluminal balloon angioplasty of bilateral common iliac arteries, percut aneous transluminal stent placement in the bilateral common iliac arteries due to severe stenosis and percutaneous closure of the bilateral femoral arteries with Perclose x 2 and left Angio-Seal. Postop, the patient was brought into the intensive care unit. At the time of his arrival, the patient was on 6 L of oxygen simple mask. His cardiac rhythm is sinus although the patient was still tachycardic and borderline hypotensive with a BP of 84/50. Noted, in the emergency the patient was initially started on esmolol drip. Subsequently, due to hypotension, the drip was discontinued and the patient was given a combination of Kwesi-Synephrine and vasopressin. At the time of arrival to the ICU, the patient was on no pressors. The patient has already received a total of 4 units of packed RBC and 4 units of fresh frozen plasma. Pulses in the lower extremities are diminished at the present. The patient also has a left IJ cordis and an arterial line in place. Awake and alert and communicating. The white cell count was at 15.6 with a hemoglobin 11.8 at time of admission and a platelet count of 421. Patient also had a sodium level of 135, BUN of 23 and a creatinine of 0.4. Normal LFTs. Normal amylase and lipase. Troponins were negative. The patient has no chest pain. No significant respiratory distress at this point in time. He is known to have COPD with an FEV1 of 38 to 42% of predicted and chronic hypoxic respiratory failure. He is also known to have hypertension hyperlipidemia and previous history of cutaneous T-cell lymphoma, mycosis fungoides. On 08/14/2024, patient is being seen for a follow-up. Earlier this morning, the patient's breathing was quite labored even at rest. He was increasingly bronchospastic and wheezy. The same time, he was still awake and alert and communicating. He was on oxygen 2 L/min nasal cannula. He was given bronchodilators and she was also started on steroids. Later on, by afternoon, the patient became more obtunded and lethargic and weak. At that point, a blood gas was done that showed a pH of 7.1 with a pCO2 of 72 and pO2 of 156 and based on that, the patient was intubated and placed on the mechanical ventilator. He is currently on assist-control mode of mechanical ventilation at rate of 20, tidal volume of 350, FiO2 of 100% with a PEEP of 5. Awaiting follow-up blood gases. Postintubation chest x-ray showed COPD with bilateral hyperinflation. Orogastric tube was in high position needed to be advanced. Orotracheal tube was in satisfactory position. The patient has subtle scattered opacities bilaterally. Postintubation, the patient encountered significant hypotension. The patient was immediately given 2 L of IV fluids nasal cannula and the patient was started on norepinephrine for blood pressure support. Noted, prior to that, the patient was on no pressors and the patient was doing well emergency at rate of 100 cc an hour. He continues to be sinus tachycardia. Repeat blood work was done and the patient white cell count of 20.7 with a hemoglobin of 8.1 and a platelet count of 143. Hemoglobin has remained stable at 8.1. BUN 32 with a creatinine of 0.9 and sodium levels at 139 and potassium level is at 4.4. Pulses lower extremities are diminished. They are obtainable by Doppler signal. On 08/15/2024, the patient is being seen for a follow-up. As stated, the patient was intubated yesterday due to acute hypercapnic respiratory failure due to his advanced COPD. This morning, the patient remains intubated on mechanical ventilator. On propofol running at 50 mcg/kg/min. He is on assist-control mode of mechanical ventilation at rate of 28, tidal volume of 350, FiO2 of 40% and a PEEP of 5. Blood gas showed a pH of 7.25 with a pCO2 of 38 and pO2 of 173. The follow-up chest x-ray from today shows adequate positioning of the orotracheal tube. The patient also has stable multifocal acute infiltrates in the background in addition to COPD and some leukocytosis. The patient was emp irically started on IV Zosyn. Also, the patient postintubation, the patient became hypotensive and developed an acute kidney injury. This morning, the patient remains on pressors and norepinephrine running at 0.29 mcg/kg/min and patient is also on physiologic dose of vasopressin at 0.03 units. Hemoglobin is at 7.6 and the patient will be given another unit of packed RBC per vascular surgery recommendations. Urine output is in order of 30 to 50 cc an hour. The patient remains on normal saline at rate of 150 cc an hour. He is not in significant positive fluid balance of at least 5.7 L for yesterday of 4.0 L the day prior. Possible lower extremity are diminished at 0 obtainable by Doppler signals. The white cell count is 14.7, hemoglobin 9.6 and a platelet count of 185. S the CBC was obtained following the packed RBC transfusion. Sodium level is at 144, potassium is at 4.4, BUN 42 with a creatinine 1.35 and the patient has developed an acute kidney injury. The patient also has a component of Bettina E acidosis with a serum bicarb of 17. LFTs are normal. Total protein is at 4.4 with an albumin level of 2.4. Echocardiogram was completed on 08/14/2024 and the patient was found to have hyperdynamic LV, moderate amount of pericardial effusion without tamponade physiology. No significant valvular abnormalities noted. The patient also has an orogastric tube in place. There is some greenish bilious material coming of the OG tube and this has been ongoing in the order of 300 cc over the past 12 hours. No indication for an upper GI bleed. On 08/16/2024, the patient is being seen in follow-up in intensive care unit. This morning, the patient remains on propofol which is running at 25 mcg/kg/min. The patient is calm and comfortable and synchronous on mechanical ventilator. The patient remains on assist-control rate of 28, tidal volume of 350, FiO2 35% with a PEEP of 5. Blood gas showed a pH of 7.26 with a pCO2 of 38 and pO2 of 126. Chest x-ray from today shows small left-sided pleural effusion, right basilar atelectasis and there are some signs of early volume overload. Clinically, the patient is significantly in a positive fluid balance and volume overload. The patient has developed scrotal and bilateral lower and upper extremity edema. There is also some oozing of fluid from the surgical sites in the groins bilaterally. Fluid balance has been +9.2 L over the past 24 hours. Remains on NS at a rate of 75 cc an hour. Remains on pressors and the patient was on norepinephrine at 0.21 mcg/kg/min and this was reduced down to 0.1 mcg and the patient remains on vasopressin physiologic dose. Urine output is order of 50 to 75 cc an hour. Fluid balance +9 L at least over the past 24 hours. Afebrile. White cell count of 20.4 and the patient is currently on empiric antibiotic coverage with IV Zosyn. Hemoglobin is 9.8 and a platelet count of 188. BUN is 40 with a creatinine of 1.02 and serum bicarbonate 15 with an anion gap of 11. Glucose at 190. The patient remains n.p.o. as the patient was having increased output from the NG tube. The output has improved over the past 12 hours and the patient will be started or given a trial of enteral feeding for nutritional support. On 08/17/2024, the patient remains intubated on mechanical ventilator. This morning he is sedated on propofol running at 20 mcg/kg/min. He is on assist- control mode of mechanical ventilation at rate of 28, tidal volume of 350, FiO2 35% with a PEEP of 5. Blood gas showed pH of 7.28 with a pCO2 of 41 and pO2 124. He was started on vital HP at rate of 10 cc an hour. 2 bowel movements already. Chest x-ray from today shows development of small bilateral pleural effusions left more than right. Catheters are all in good location. The patient remains on pressors. Norepinephrine running at 0.12 mcg/kg/min. Vasopressin physiologic dose. Fluid balance is positive for 62 cc over the past 24 hours. Less bronchospastic and wheezy on examination with a peak airway pressure of 27. The white cell count is 23, hemoglobin is 9 and a platelet count of 194. The sodium level is at 148, BUN is 44 with a creatinine of 1.09. Potassium level is at 4.3. Metabolic acidosis also improving and the serum bicarb is up to 19. Remains on empiric antibiotic coverage with IV Zosyn. No other significant events overnight. Objective - Vital Signs Vital signs: Vital Signs Temp 98.1 F 08/17/24 04:00 Pulse 65 08/17/24 07:00 Resp 28 H 08/17/24 07:00 BP 93/56 08/17/24 02:30 Pulse Ox 99 08/17/24 07:00 FiO2 35 08/17/24 04:09 Intake & Output 08/16/24 08/17/24 08/17/24 18:59 06:59 18:59 Intake Total 747.123 795.120 23 Output Total 630 450 30 Balance 117.123 345.120 -7 Weight 62.6 kg Intake: IV 424 273 13 Piperacillin-Tazobactam 3 175 150 .375 gm In Sodium Chloride 0.9% 100 ml @ 25 mls/hr IVPB Q8HR [facility] Rx# :[id number] Sodium Chloride 0.9% 1, 210 90 10 000 ml @ 10 mls/hr IV . Q24H [facility] Rx#:[id number] pressure bag 39 33 3 Intake, IV Titration 323.123 362.120 Amount Norepinephrine 8 mg In 246.831 177.952 Sodium Chloride 0.9% 250 ml @ 0.03 MCG/KG/MIN 3. 152 mls/hr IV .Q24H [facility] Rx#:[id number] Vasopressin 60 unit In 121.099 Sodium Chloride 0.9% 150 ml @ 0.03 UNITS/MIN 4.59 mls/hr IV .Q24H [facility] Rx#: [id number] propofoL 1,000 mg In 76.292 63.069 Empty Bag 1 bag @ 15 MCG/ KG/MIN 4.887 mls/hr IV . [id number] [facility] Rx#:[id number] Tube Feeding 100 10 Other 60 Output: Urine 630 450 30 Other: Voiding Method Indwelling Catheter Indwelling Catheter # Bowel Movements 1 ABP, PAP, CO, CI - Last Documented Arterial Blood Pressure 101/44 - Exam The patient thin and frail with a body mass index of 16.9. Currently sedated w ith propofol., Comfortable, intubated on mechanical ventilator. Orogastric and orotracheal tube are both in place. Head exam is unremarkable. No scleral icterus or corneal arcus noted. Neck is without jugular venous distension, thyromegaly, or carotid bruits. Carotid upstrokes are brisk bilaterally. Lungs are diminished breath sounds bilaterally and the patient has a barrel chest Cardiac exam reveals the PMI to be normally sized and situated. Rhythm is regular. First and second heart sounds normal. No murmurs, rubs or gallops. Abdominal exam reveals normal bowel sounds, no masses, no organomegaly and no aortic enlargement. Extremities are nonedematous and both femoral and pedal pulses diminished and they are obtainable by Doppler signal. Femoral pulses are present bilaterally.. Extremities are still cold. No skin mottling. Surgical wound site in the groin area seems to be dry clean and intact. No significant hematoma. There is significant edema in lower extremities and the patient has also developed scrotal edema. There is also edema in the upper extremities. Examination of the skin revealed no evidence of significant rashes, suspicious appearing nevi or other concerning lesions. Neurologically, the patient was awake and alert earlier. Based on diminished level of consciousness, and hypercapnic respiratory failure, the patient was sedated and subsequently intubated and placed on the mechanical ventilator. - Labs CBC & Chem 7: 08/17/24 04:17 08/17/24 04:17 Labs: Abnormal Lab Results - Last 24 Hours (Table) 08/16/24 08/16/24 08/17/24 Range/Units 11:32 18:12 00:58 WBC (3.8-10.6) k/uL RBC (4.30-5.90) m/uL Hgb (13.0-17.5) gm/dL Hct (39.0-53.0) % RDW (11.5-15.5) % Neutrophils # (1.3-7.7) k/uL Lymphocytes # (1.0-4.8) k/uL ABG pH (7.35-7.45) ABG pO2 (83-108) mmHg ABG HCO3 (21-25) mmol/L ABG O2 Saturation (94-97) % Hemoglobin (13.0-17.5) gm/dL Sodium (137-145) mmol/L Chloride (98-107) mmol/L Carbon Dioxide (22-30) mmol/L BUN (9-20) mg/dL Glucose (74-99) mg/dL POC Glucose (mg/dL) 144 H 151 H 163 H (70-110) mg/dL Magnesium (1.6-2.3) mg/dL 08/17/24 08/17/24 08/17/24 Range/Units 04:17 04:17 05:22 WBC 23.8 H (3.8-10.6) k/uL RBC 3.20 L (4.30-5.90) m/uL Hgb 9.0 L (13.0-17.5) gm/dL Hct 28.6 L (39.0-53.0) % RDW 17.5 H (11.5-15.5) % Neutrophils # 22.8 H (1.3-7.7) k/uL Lymphocytes # 0.4 L (1.0-4.8) k/uL ABG pH 7.28 L (7.35-7.45) ABG pO2 124 H (83-108) mmHg ABG HCO3 19 L (21-25) mmol/L ABG O2 Saturation 99.1 H (94-97) % Hemoglobin 9.0 L (13.0-17.5) gm/dL Sodium 148 H (137-145) mmol/L Chloride 119 H (98-107) mmol/L Carbon Dioxide 19 L (22-30) mmol/L BUN 44 H (9-20) mg/dL Glucose 158 H (74-99) mg/dL POC Glucose (mg/dL) (70-110) mg/dL Magnesium 2.6 H (1.6-2.3) mg/dL 08/17/24 Range/Units 05:32 WBC (3.8-10.6) k/uL RBC (4.30-5.90) m/uL Hgb (13.0-17.5) gm/dL Hct (39.0-53.0) % RDW (11.5-15.5) % Neutrophils # (1.3-7.7) k/uL Lymphocytes # (1.0-4.8) k/uL ABG pH (7.35-7.45) ABG pO2 (83-108) mmHg ABG HCO3 (21-25) mmol/L ABG O2 Saturation (94-97) % Hemoglobin (13.0-17.5) gm/dL Sodium (137-145) mmol/L Chloride (98-107) mmol/L Carbon Dioxide (22-30) mmol/L BUN (9-20) mg/dL Glucose (74-99) mg/dL POC Glucose (mg/dL) 168 H (70-110) mg/dL Magnesium (1.6-2.3) mg/dL Assessment and Plan Plan: Assessment Abdominal pain secondary to ruptured abdominal aortic aneurysm and the patient was found to have a 12 cm infrarenal abdominal aortic aneurysm with concentric atherosclerotic plaque and adjacent stranding and large hematoma in the retroperitoneal space. The patient underwent emergent endovascular aortic repair with a AFX 2 device. The patient also underwent percutaneous balloon angioplasty of bilateral common iliac arteries and stent placement in the b ilateral common iliacs for severe vascular disease. Currently postop day # 4 Hemorrhagic shock secondary to above. Already received a total of 5 units of packed RBC. He received an additional unit of packed RBC this morning. Noted, postintubation, the patient became quite hypotensive and the patient was started on pressors and currently the patient is on a combination of fluids and norepinephrine infusion. This morning, the patient is on norepinephrine and vasopressin physiologic dose. Remains hypotensive and pressors are being gradually weaned off. Acute hypercapnic respiratory failure with secondary diminished level of consciousness secondary COPD exacerbation. Remains intubated on mechanical ventilator. Continues to have a component of respiratory and metabolic acidosis on today's blood gas. Oxygenation is stable. Chest x-ray was noted. Acute blood loss anemia, awaiting follow-up hemoglobin. Secondary to hemorrhagic shock and rupture of the aortic aneurysm. Hemoglobin is stable. Overall, he has received a total of 6 units of packed RBC., Most recent transfusion with packed RBC was on 08/15/2024. Hemoglobin stable for now. Volume overload with significant positive fluid balance and increasing edema in upper and lower extremities and scrotal edema. Acute kidney injury, likely secondary to hypotension/postsurgical ATN, recovered and the patient renal function has normalized Non-anion gap metabolic acidosis, improving and serum bicarb is up to 19 Mild hyponatremia, hypochloremic COPD, severe with an FEV1 of 38 to 42% of predicted Chronic hypoxic respiratory failure, secondary to COPD History of cutaneous T-cell lymphoma/mycosis fungoides Hypertension Hyperlipidemia BPH Chronic smoker Plan Keep the patient sedated on propofol Continue mechanical ventilator support. No ventilator changes for today. IV fluids to KVO Wean off norepinephrine Titrate norepinephrine and keep the patient on vasopressin physiologic dose Blood cultures x 2, results are still pending Monitor CBC and electrolytes, hemoglobin is stable Continue IV Zosyn as an empiric antibiotic coverage Free water supplements through the OG Monitor urine output, urine output is improving and renal function is also improved. of vital high-protein enteral feeding for nutrition support at rate of 10 cc an hour, will advance it to 20 cc an hour Monitor pulse in the lower extremities, pulses are obtained by Doppler Continue albuterol nebulizer treatments 4 times a day [id number] IV Solu-Medrol 60 mg every 6 hours Continue IV Zosyn Renal function has normalized Metabolic acidosis improving Not ready for weaning yet Condition is obviously critical. Will continue to follow and make further recommendations based on his progress. Evaluation was done and 40 minutes Time with Patient: Greater than 30
[2024-08-17 12:03] LABS: Glucose,Whole Blood 162 mg/dL (70-110)
--- NOTE | 2024-08-17 13:00 | P.PN ---
Subjective Progress Note Date: 08/17/24 78-year-old male patient with past medical tree significant for COPD, aortic aneurysm who presented to ER with a complaint of acute onset abdominal pain and back pain. Patient was afebrile in the ED, was tachycardic and hypotensive, required epinephrine drip. Was saturating 98% on 2 L. Patient denied any fever, chills, sore throat, productive cough, shortness of breath, chest pain, palpitations, dysuria urgency frequency weakness or numbness to extremities, diarrhea or constipation. WBCs were 15.6, hemoglobin 11.8, platelet 87. INR 1.1. Sodium 135 potassium 4.0 chloride 101 CO2 24 BUN 23 creatinine 0.45. Liver profile and lipase was unremarkable. Patient was afebrile tachycardic and hypotensive, required epinephrine drip. Ultrasound showed probable ruptured AAA with pulsatile mass. CT angio showed a large 11.8 cm aneurysm with stranding concerning for rupture. Patient was taken to [facility] for emergent endovascular aortic repair. 08/14--patient was seen and examined today. Son at bedside. Patient feeling better. Afebrile, tachycardic with heart rate in the low 100s, tachypneic with respiratory rate 20, blood pressure is low 107/51. Patient denied any nausea vomiting abdominal pain, dizziness. Currently on 2 L oxygen. Was tachycardic overnight. No flatus. So far 5 units packed RBCs and 4 units of FFP transfusion. Hemoglobin currently stable. Vascular surgery following. ICU following. WBCs 20.1, hemoglobin 9.2, platelet 139. BUN 32, creatinine 0.96. 08/15--patient was seen and examined today. Patient had acute hypercapnic respiratory failure due to his advanced COPD yesterday, ICU was consulted and patient got intubated. Patient remains intubated on mechanical ventilation, on propofol, 40% FiO2 and PEEP of 5. Blood gases showed pH 7.25 with pCO2 38 and pO2 173. Repeat chest x-ray today showed adequate positioning of orotracheal tube. Chest x-ray showed multifocal infiltrates in addition to COPD. Patient also on vasopressorsLevophed and vasopressin. Patient's hemoglobin was 7.6, received another unit of packed RBCs today, total 6 units of packed RBCs so far. On IV fluids due to low blood pressure and decreased urine output. Echocardiogram yesterday showed hyperdynamic LV, moderate amount of pericardial effusion without tamponade. 08/16. Patient seen and examined. Blood work done today showed WBC 20.4, hemoglobin 9.8, platelet count 188, sodium 141, potassium 4.4, BUN 40, current 1.02, glucose 150 magnesium 2.4. Patient continues to be intubated, currently on FiO2 of 35%. Currently on vasopressin, Levophed. Continues to be on prop ofol. Son at the bedside, updated about patient's progress 08/17. Patient seen and examined.,Labs reviewed showed WBC 23.8, hemoglobin 9, platelet count 194, sodium 148, potassium 4.3 BUN 44, creatinine 1.09. Currently on propofol. Continues to be on vasopressors in the form of vasopres sin and norepinephrine. Continue REVIEW OF SYSTEMS: Review of system cannot be obtained as patient currently intubated PHYSICAL EXAMINATION: GENERAL: The patient is intubated HEENT: Pupils are round and equally reacting to light. EOMI. No scleral icterus. No conjunctival pallor. Normocephalic, atraumatic. No pharyngeal erythema. No thyromegaly. CARDIOVASCULAR: S1 and S2 present. No murmurs, rubs, or gallops. PULMONARY: Chest is clear to auscultation, no wheezing or crackles. ABDOMEN: Soft, nontender, nondistended, normoactive bowel sounds. No palpable organomegaly. MUSCULOSKELETAL: No joint swelling or deformity. EXTREMITIES: No cyanosis, clubbing, or pedal edema. NEUROLOGICAL: Currently intubated SKIN: No rashes. Assessment and plan Ruptured aortic aneurysm: Hemorrhagic shock: Acute blood loss anemia: Retroperitoneal hematoma: Presented with acute onset abdominal pain and back pain Ultrasound in the ED concerning for probable ruptured AAA with pulsatile mass. Was tachycardic, hypotensive required epinephrine drip. CT angio showed a large 11.8 cm aneurysm with stranding concerning for rupture, with large right retroperitoneal hematoma Patient was taken to [facility] by vascular surgery status post percutaneous endovascular aortic repair, percutaneous transluminal balloon angioplasty of bilateral EUFEMIA, stent placement of bilateral EUFEMIA due to severe stenosis 08/13 Status post 6 units of packed RBCs, 4 units of FFP. Monitor vitals and labs Monitor H&H, transfuse for hemoglobin less than 7.0. Neurovascular checks. Vascular surgery following ICU consulted --- on vasopressors Acute hypoxic hypercapnic respiratory failure requiring intubation mechanical ventilation: Advanced COPD: Acute COPD exacerbation: Pneumonia: Patient required intubation and mechanical ventilation on 08/14 due to acute hypoxic hypercapnic respiratory failure. Continue vent management Nebulizer/bronchodilator protocol, Solu-Medrol Zosyn Continue tube feeding Hypertension BPH Labs and medication were reviewed.. Continue same treatment. Continue with symptomatic treatment. Resume home medication. Monitor labs and vitals. DVT and GI prophylaxis. Further recommendations as per clinical course of the patient Dictation was produced using [employer] dictation software. please excuse any grammatical, word or spelling errors. Objective - Vital Signs Vital signs: Vital Signs Temp 98.4 F 08/17/24 08:00 Pulse 64 08/17/24 12:26 Resp 14 08/17/24 11:30 BP 86/52 08/17/24 11:00 Pulse Ox 100 08/17/24 11:30 FiO2 35 08/17/24 12:14 Intake & Output 08/16/24 08/17/24 08/17/24 18:59 06:59 18:59 Intake Total 747.123 795.120 323.443 Output Total 630 450 205 Balance 117.123 345.120 118.443 Weight 62.6 kg Intake: IV 424 273 165 Piperacillin-Tazobactam 3 175 150 100 .375 gm In Sodium Chloride 0.9% 100 ml @ 25 mls/hr IVPB Q8HR [facility] Rx# :[id number] Sodium Chloride 0.9% 1, 210 90 50 000 ml @ 10 mls/hr IV . Q24H [facility] Rx#:[id number] pressure bag 39 33 15 Intake, IV Titration 323.123 362.120 138.443 Amount Norepinephrine 8 mg In 246.831 177.952 61.989 Sodium Chloride 0.9% 250 ml @ 0.03 MCG/KG/MIN 3. 152 mls/hr IV .Q24H [facility] Rx#:[id number] Vasopressin 60 unit In 121.099 Sodium Chloride 0.9% 150 ml @ 0.03 UNITS/MIN 4.59 mls/hr IV .Q24H [facility] Rx#: [id number] propofoL 1,000 mg In 76.292 63.069 76.454 Empty Bag 1 bag @ 15 MCG/ KG/MIN 4.887 mls/hr IV . [id number] [facility] Rx#:[id number] Tube Feeding 100 20 Other 60 Output: Urine 630 450 205 Other: Voiding Method Indwelling Catheter Indwelling Catheter Indwelling Catheter # Bowel Movements 1 ABP, PAP, CO, CI - Last Documented Arterial Blood Pressure 104/45 - Labs CBC & Chem 7: 08/17/24 04:17 08/17/24 04:17 Labs: Abnormal Lab Results - Last 24 Hours (Table) 08/16/24 08/17/24 08/17/24 Range/Units 18:12 00:58 04:17 WBC 23.8 H (3.8-10.6) k/uL RBC 3.20 L (4.30-5.90) m/uL Hgb 9.0 L (13.0-17.5) gm/dL Hct 28.6 L (39.0-53.0) % RDW 17.5 H (11.5-15.5) % Neutrophils # 22.8 H (1.3-7.7) k/uL Lymphocytes # 0.4 L (1.0-4.8) k/uL ABG pH (7.35-7.45) ABG pO2 (83-108) mmHg ABG HCO3 (21-25) mmol/L ABG O2 Saturation (94-97) % Hemoglobin (13.0-17.5) gm/dL Sodium (137-145) mmol/L Chloride (98-107) mmol/L Carbon Dioxide (22-30) mmol/L BUN (9-20) mg/dL Glucose (74-99) mg/dL POC Glucose (mg/dL) 151 H 163 H (70-110) mg/dL Magnesium (1.6-2.3) mg/dL 08/17/24 08/17/24 08/17/24 Range/Units 04:17 05:22 05:32 WBC (3.8-10.6) k/uL RBC (4.30-5.90) m/uL Hgb (13.0-17.5) gm/dL Hct (39.0-53.0) % RDW (11.5-15.5) % Neutrophils # (1.3-7.7) k/uL Lymphocytes # (1.0-4.8) k/uL ABG pH 7.28 L (7.35-7.45) ABG pO2 124 H (83-108) mmHg ABG HCO3 19 L (21-25) mmol/L ABG O2 Saturation 99.1 H (94-97) % Hemoglobin 9.0 L (13.0-17.5) gm/dL Sodium 148 H (137-145) mmol/L Chloride 119 H (98-107) mmol/L Carbon Dioxide 19 L (22-30) mmol/L BUN 44 H (9-20) mg/dL Glucose 158 H (74-99) mg/dL POC Glucose (mg/dL) 168 H (70-110) mg/dL Magnesium 2.6 H (1.6-2.3) mg/dL 08/17/24 Range/Units 12:01 WBC (3.8-10.6) k/uL RBC (4.30-5.90) m/uL Hgb (13.0-17.5) gm/dL Hct (39.0-53.0) % RDW (11.5-15.5) % Neutrophils # (1.3-7.7) k/uL Lymphocytes # (1.0-4.8) k/uL ABG pH (7.35-7.45) ABG pO2 (83-108) mmHg ABG HCO3 (21-25) mmol/L ABG O2 Saturation (94-97) % Hemoglobin (13.0-17.5) gm/dL Sodium (137-145) mmol/L Chloride (98-107) mmol/L Carbon Dioxide (22-30) mmol/L BUN (9-20) mg/dL Glucose (74-99) mg/dL POC Glucose (mg/dL) 162 H (70-110) mg/dL Magnesium (1.6-2.3) mg/dL
[2024-08-17 18:06] LABS: Glucose,Whole Blood 201 mg/dL (70-110)
--- NOTE | 2024-08-17 18:47 | P.CONS ---
History of Present Illness - Reason for Consult Consult date: 08/17/24 Management of oncologic medication - History of Present Illness The patient is a 78-year-old white male, with multiple medical problems. He was admitted with abdominal and back pain as well as hypotension, due to a ruptured AAA. He underwent percutaneous repair and stent placement. He subsequently developed respiratory failure due to COPD and had to be intubated. 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 Family was requesting an oncologic opinion regarding treatment with the same, while the patient was hospitalized For further details of his condition are not available. At the time of my evaluation, the patient was intubated and sedated. There was no family available. Case was discussed with nursing who did not have any information regarding location of lesions, or the treating physician. Review of Systems ROS unobtainable: due to endotracheal tube (Unobtainable from the patient. Limited ROS obtained from the medical records) Constitutional: Reports as per HPI Eyes: denies blurred vision, denies pain Ears, nose, mouth and throat: Denies headache, Denies sore throat Cardiovascular: Reports as per HPI Respiratory: Reports as per HPI, Reports dyspnea Gastrointestinal: Reports abdominal pain Genitourinary: Reports as per HPI (No specific abnormalities reported in records) Musculoskeletal: Reports as per HPI (No specific abnormalities reported in records) Integumentary: Reports as per HPI (Cutaneous T-cell lymphoma. Further information not available as of now) Neurological: Reports as per HPI (No history of any neurologic deficit at the time of presentation.) Endocrine: Denies fatigue, Denies weight change Hematologic/Lymphatic: Reports as per HPI Past Medical History Past Medical History: Cancer, COPD Additional Past Medical History / Comment(s): t cell lymphoma History of Any Multi-Drug Resistant Organisms: None Reported Past Surgical History: Tonsillectomy Additional Past Surgical History / Comment(s): Deviated Septum Repair in the Past Psychological History: No Psychological Hx Reported Smoking Status: Light tobacco smoker Past Alcohol Use History: None Reported Past Drug Use History: None Reported Medications and Allergies Home Medications Medication Instructions Recorded Confirmed Type Acitretin [Soriatane] 25 mg PO MOWEFR 08/13/24 08/13/24 History Albuterol Sulfate [Albuterol 2 puff INHALATION RT-QID PRN 08/13/24 08/13/24 History Sulfate Hfa] Ezetimibe [Zetia] 10 mg PO DAILY 08/13/24 08/13/24 History Fluticasone Propion/Salmeterol 1 puff INHALATION RT-BID 08/13/24 08/13/24 History [Fluticasone-Salmeterol 250-50] Losartan/Hydrochlorothiazide 1 tab PO DAILY 08/13/24 08/13/24 History [Hyzaar 100-12.5 Tablet] Tamsulosin [Flomax] 0.4 mg PO DAILY 08/13/24 08/13/24 History Theophylline 12 Hour [Sorin-Dur] 300 mg PO BID 08/13/24 08/13/24 History Tiotropium Lorraine [Spiriva] 1 puff INHALATION RT-DAILY 08/13/24 08/13/24 History atenoloL [Tenormin] 12.5 mg PO DAILY 08/13/24 08/13/24 History predniSONE 5 mg PO DAILY 08/13/24 08/13/24 History Allergies Allergy/AdvReac Type Severity Reaction Status Date / Time No Known Allergies Allergy Verified 08/13/24 09:57 Physical Exam Vitals: Vital Signs Temp Pulse Resp BP Pulse Ox FiO2 08/17/24 16:45 79 28 H 99 08/17/24 16:30 80 28 H 100 08/17/24 16:28 72 08/17/24 16:19 70 35 08/17/24 16:15 67 28 H 100 08/17/24 16:00 98.2 F 65 28 H 99/60 100 35 08/17/24 15:45 69 28 H 100 08/17/24 15:30 64 28 H 100 08/17/24 15:15 64 28 H 100 08/17/24 15:00 67 29 H 108/81 100 08/17/24 14:45 77 28 H 100 08/17/24 14:30 28 H 100 08/17/24 14:15 71 28 H 100 08/17/24 14:00 75 28 H 92/54 100 08/17/24 13:45 28 H 99 08/17/24 13:30 75 28 H 100 08/17/24 13:15 61 28 H 100 08/17/24 13:00 61 28 H 86/54 100 08/17/24 12:45 70 28 H 100 08/17/24 12:30 71 28 H 100 08/17/24 12:26 64 08/17/24 12:15 61 28 H 100 08/17/24 12:14 60 35 08/17/24 12:00 98.7 F 63 28 H 113/66 100 35 08/17/24 11:45 64 29 H 100 08/17/24 11:30 68 14 100 08/17/24 11:15 76 15 99 08/17/24 11:00 79 15 86/52 100 08/17/24 10:45 71 28 H 100 08/17/24 10:30 77 14 100 08/17/24 10:15 72 14 100 08/17/24 10:00 57 L 19 100 35 08/17/24 09:45 63 19 100 35 08/17/24 09:30 62 19 100 35 08/17/24 09:15 70 14 100 08/17/24 09:00 73 14 84/60 100 08/17/24 08:54 72 08/17/24 08:45 73 17 100 08/17/24 08:42 35 08/17/24 08:38 78 08/17/24 08:30 14 100 08/17/24 08:15 77 14 100 08/17/24 08:00 98.4 F 76 28 H 75/52 100 35 08/17/24 07:45 58 L 28 H 100 08/17/24 07:30 71 28 H 100 08/17/24 07:15 63 28 H 100 08/17/24 07:00 65 28 H 99 08/17/24 06:45 72 28 H 100 08/17/24 06:30 72 28 H 100 08/17/24 06:15 66 28 H 100 08/17/24 06:00 66 28 H 100 08/17/24 05:45 68 28 H 100 08/17/24 05:30 70 28 H 100 08/17/24 05:15 70 28 H 100 08/17/24 05:00 79 28 H 99 08/17/24 04:45 75 28 H 99 08/17/24 04:30 74 28 H 100 08/17/24 04:15 77 28 H 100 08/17/24 04:09 35 08/17/24 04:00 98.1 F 63 28 H 100 35 08/17/24 03:45 59 L 28 H 100 08/17/24 03:30 69 28 H 99 08/17/24 03:15 71 28 H 100 08/17/24 03:00 70 28 H 100 08/17/24 02:45 73 28 H 99 08/17/24 02:30 61 28 H 93/56 100 08/17/24 02:15 60 28 H 93/56 100 08/17/24 02:00 63 28 H 100 08/17/24 01:45 68 28 H 100 08/17/24 01:30 68 28 H 100 08/17/24 01:15 28 H 99 08/17/24 01:00 68 28 H 100 08/17/24 00:45 64 28 H 100 08/17/24 00:30 78 28 H 100 08/17/24 00:23 35 08/17/24 00:15 73 28 H 100 08/17/24 00:13 73 28 H 100 08/17/24 00:00 98.4 F 74 28 H 100 35 08/16/24 23:45 76 28 H 100 08/16/24 23:30 68 28 H 100 08/16/24 23:17 35 08/16/24 23:16 35 08/16/24 23:15 73 28 H 99 08/16/24 23:00 71 28 H 99 08/16/24 22:45 67 28 H 100 08/16/24 22:30 68 28 H 87/60 100 08/16/24 22:15 28 H 99 08/16/24 22:00 64 29 H 100 08/16/24 21:45 71 28 H 100 08/16/24 21:30 62 28 H 100 08/16/24 21:15 64 28 H 100 08/16/24 21:00 77 28 H 99 08/16/24 20:45 82 28 H 99 08/16/24 20:30 83 28 H 100 08/16/24 20:18 35 08/16/24 20:15 76 28 H 99 08/16/24 20:00 98.1 F 80 28 H 100 35 08/16/24 19:54 35 08/16/24 19:45 70 28 H 99 08/16/24 19:43 35 08/16/24 19:30 73 28 H 99 08/16/24 19:15 78 28 H 99 08/16/24 19:00 84 28 H 103/56 99 08/16/24 18:45 84 28 H 100 Intake and Output 08/17/24 08/17/24 08/17/24 06:59 14:59 22:59 Intake Total 649.277 332.443 59 Output Total 325 305 90 Balance 324.277 27.443 -31 Intake: IV 204 174 59 Piperacillin-Tazobactam 3 100 100 50 .375 gm In Sodium Chloride 0.9% 100 ml @ 25 mls/hr IVPB Q8HR [facility] Rx# :[id number] Sodium Chloride 0.9% 1, 80 50 000 ml @ 10 mls/hr IV . Q24H [facility] Rx#:[id number] pressure bag 24 24 9 Intake, IV Titration 305.277 138.443 Amount Norepinephrine 8 mg In 121.109 61.989 Sodium Chloride 0.9% 250 ml @ 0.03 MCG/KG/MIN 3. 152 mls/hr IV .Q24H [facility] Rx#:[id number] Vasopressin 60 unit In 121.099 Sodium Chloride 0.9% 150 ml @ 0.03 UNITS/MIN 4.59 mls/hr IV .Q24H [facility] Rx#: [id number] propofoL 1,000 mg In 63.069 76.454 Empty Bag 1 bag @ 15 MCG/ KG/MIN 4.887 mls/hr IV . [id number] [facility] Rx#:[id number] Tube Feeding 80 20 Other 60 Output: Urine 325 305 90 Other: Voiding Method Indwelling Catheter Indwelling Catheter Indwelling Catheter Weight 62.6 kg ABP, PAP, CO, CI - Last 8 Hours Arterial Blood Pressure 118/49 Arterial Blood Pressure 124/52 Arterial Blood Pressure 116/49 Arterial Blood Pressure 91/40 Arterial Blood Pressure 96/45 Arterial Blood Pressure 99/41 Arterial Blood Pressure 98/44 Arterial Blood Pressure 102/44 Arterial Blood Pressure 110/49 Arterial Blood Pressure 107/46 Arterial Blood Pressure 107/45 Arterial Blood Pressure 118/60 Arterial Blood Pressure 116/49 Arterial Blood Pressure 104/46 Arterial Blood Pressure 88/39 Arterial Blood Pressure 94/43 Arterial Blood Pressure 103/46 Arterial Blood Pressure 100/43 Arterial Blood Pressure 85/38 Arterial Blood Pressure 29/25 Arterial Blood Pressure 89/39 Arterial Blood Pressure 104/45 Arterial Blood Pressure 113/50 Arterial Blood Pressure 116/50 Arterial Blood Pressure 107/45 Sedated on the ventilator - Constitutional General appearance: average body habitus, no acute distress - EENT Eyes: PERRLA - Neck Neck: no lymphadenopathy - Respiratory Respiratory: bilateral: diminished - Cardiovascular Rhythm: regular Heart sounds: normal: S1, S2 - Gastrointestinal General gastrointestinal: normal bowel sounds, soft - Integumentary Full skin exam not possible, due to the patient being sedated and intubated at the time. Examined areas of the skin including anterior and lateral aspect of the extremities and trunk did not show any definite lesions suggestive of CTCL Areas of excoriation on the mid to lower abdomen. Fading extensive bruising bilateral upper extremities - Neurologic Sedated on vent - Musculoskeletal Mild muscle wasting on both upper and lower extremities. No active joint swelling or edema - Psychiatric Sedated, on the ventilator Results CBC & Chem 7: 08/17/24 04:17 08/17/24 04:17 Labs: Abnormal Lab Results - Last 24 Hours (Table) 08/17/24 08/17/24 08/17/24 Range/Units 00:58 04:17 04:17 WBC 23.8 H (3.8-10.6) k/uL RBC 3.20 L (4.30-5.90) m/uL Hgb 9.0 L (13.0-17.5) gm/dL Hct 28.6 L (39.0-53.0) % RDW 17.5 H (11.5-15.5) % Neutrophils # 22.8 H (1.3-7.7) k/uL Lymphocytes # 0.4 L (1.0-4.8) k/uL ABG pH (7.35-7.45) ABG pO2 (83-108) mmHg ABG HCO3 (21-25) mmol/L ABG O2 Saturation (94-97) % Hemoglobin (13.0-17.5) gm/dL Sodium 148 H (137-145) mmol/L Chloride 119 H (98-107) mmol/L Carbon Dioxide 19 L (22-30) mmol/L BUN 44 H (9-20) mg/dL Glucose 158 H (74-99) mg/dL POC Glucose (mg/dL) 163 H (70-110) mg/dL Magnesium 2.6 H (1.6-2.3) mg/dL 0408/17/24 08/17/24 Range/Units 05:22 05:32 12:01 WBC (3.8-10.6) k/uL RBC (4.30-5.90) m/uL Hgb (13.0-17.5) gm/dL Hct (39.0-53.0) % RDW (11.5-15.5) % Neutrophils # (1.3-7.7) k/uL Lymphocytes # (1.0-4.8) k/uL ABG pH 7.28 L (7.35-7.45) ABG pO2 124 H (83-108) mmHg ABG HCO3 19 L (21-25) mmol/L ABG O2 Saturation 99.1 H (94-97) % Hemoglobin 9.0 L (13.0-17.5) gm/dL Sodium (137-145) mmol/L Chloride (98-107) mmol/L Carbon Dioxide (22-30) mmol/L BUN (9-20) mg/dL Glucose (74-99) mg/dL POC Glucose (mg/dL) 168 H 162 H (70-110) mg/dL Magnesium (1.6-2.3) mg/dL 08/17/24 Range/Units 18:05 WBC (3.8-10.6) k/uL RBC (4.30-5.90) m/uL Hgb (13.0-17.5) gm/dL Hct (39.0-53.0) % RDW (11.5-15.5) % Neutrophils # (1.3-7.7) k/uL Lymphocytes # (1.0-4.8) k/uL ABG pH (7.35-7.45) ABG pO2 (83-108) mmHg ABG HCO3 (21-25) mmol/L ABG O2 Saturation (94-97) % Hemoglobin (13.0-17.5) gm/dL Sodium (137-145) mmol/L Chloride (98-107) mmol/L Carbon Dioxide (22-30) mmol/L BUN (9-20) mg/dL Glucose (74-99) mg/dL POC Glucose (mg/dL) 201 H (70-110) mg/dL Magnesium (1.6-2.3) mg/dL Microbiology - Last 24 Hours (Table) 08/14/24 14:55 Gram Stain - Final Sputum Sputum Culture - Final Pseudomonas aeruginosa Comments: CT angiogram abdomen, echocardiogram reports reviewed Chest x-ray: report reviewed Assessment and Plan (1) Cutaneous T-cell lymphoma Narrative/Plan: The patient is currently on treatment for the same. Further details are not available, as noted in the HPI. By my examination, I did not see any active lesions. Acitretin is typically used for limited superficial CTCL only and is more commonly utilized for psoriasis. Therefore it is unlikely that the patient has any advanced disease. It would be quite reasonable to hold the medication while he is on the ventilator. It is highly unlikely in this case that temporary cessation would have any harmful effects. He can resume the same, when awake and able to swallow Current Visit: Yes Status: Acute Code(s): C84.A0 - CUTANEOUS T-CELL LYMPHOMA, UNSPECIFIED, UNSPECIFIED SITE SNOMED Code(s): 813281141 (2) Ruptured abdominal aortic aneurysm (AAA) Narrative/Plan: Diagnostic and therapeutic circumstances as described. Defer to the admitting service and other consultants for ongoing management Current Visit: Yes Status: Acute Code(s): I71.30 - ABDOMINAL AORTIC ANEURYSM, RUPTURED, UNSPECIFIED SNOMED Code(s): 38295842
[2024-08-17] MEDS ORDERED: DEXTROSE 50% SYRINGE 50 ML IVP PRN ×2 (19:25)
[2024-08-17 23:43] LABS: Glucose,Whole Blood 207 mg/dL (70-110)
[2024-08-18] MEDS: INSULIN LISPRO (HumaLOG) 100 UNIT/ML 10 mL VL SQ SCH (00:08)
[2024-08-18 05:16] LABS: ABG Base Excess -4.1 mmol/L; ABG HCO3 22 mmol/L (21-25); ABG PCO2 47 mmHg (35-45); ABG PH 7.29 (7.35-7.45); ABG PO2 119 mmHg (83-108); ABG TCO2 24 mmol/L (19-24)
[2024-08-18 05:17] LABS: Allen Test Performed? no
[2024-08-18 06:40] LABS: Glucose,Whole Blood 219 mg/dL (70-110)
--- NOTE | 2024-08-18 06:47 | XR ---
EXAMINATION TYPE: XR chest 1V portable DATE OF EXAM: 08/18/2024 CLINICAL INDICATION: Male, 78 years old with history of resp failure, intubated, og tube, progress st udy. TECHNIQUE: Single AP portable semiupright view of the chest is obtained. COMPARISON: Chest x-ray from one day earlier and older studies. FINDINGS: Stable endotracheal and orogastric tubes. Multifocal increased opacities bilaterally are redemonstrated. Cardiac silhouette size is stable and within normal limits. Osseous structures are intact. IMPRESSION: Suspect subtle bilateral multifocal acute infiltrates on background chronic parenchymal f ibrosis and small left pleural effusion. No significant change from one day earlier. [facility], , 08/18/2024 6:44 AM
[2024-08-18 06:50] LABS: Anisocytosis Slight; HCT 27.5 % (39.0-53.0); HGB 8.5 gm/dL (13.0-17.5); Hypochromasia Moderate; MCH 27.7 pg (25.0-35.0); MCHC 30.8 g/dL (31.0-37.0); MCV 90.1 fL (80.0-100.0); Mean Platelet Volume 9.5; Platelet Count 187 k/uL (150-450); Poikilocytosis Moderate; RBC 3.05 m/uL (4.30-5.90); RDW 17.6 % (11.5-15.5); WBC 28.6 k/uL (3.8-10.6)
[2024-08-18 07:12] LABS: African American GFR (CKD) 86 (>60 ml/min/1.73 sqM); Anion Gap 4 mmol/L; Blood Urea Nitrogen 49 mg/dL (9-20); Carbon Dioxide 23 mmol/L (22-30); Chloride 118 mmol/L (98-107); Glucose 203 mg/dL (74-99); Magnesium 2.4 mg/dL (1.6-2.3); Non-African American GFR(CKD) 74 (>60 ml/min/1.73 sqM); Potassium 4.1 mmol/L (3.5-5.1); Sodium 145 mmol/L (137-145)
[2024-08-18 07:46] LABS: Band Neutrophils % 1 %; Lymphocytes # (M) 0.29 k/uL (1.0-4.8); Monocytes # (M) 0.29 k/uL (0-1.0); Neutrophils % (M) 97 %; Nucleated Red Blood Cells 0 /100 WBC (0-0); Total Cells Counted 100
--- NOTE | 2024-08-18 11:14 | P.PN ---
Subjective Progress Note Date: 08/18/24 Principal diagnosis: Ruptured infrarenal AAA Patient is seen and examined today as a follow-up. He remains in the ICU sedated and intubated. Pressors are being weaned. Will plan for sedation holiday today. Likely patient will need tracheostomy. Tube feedings have been started and he is tolerating well. Patient had a small bowel movement. Nursing is reporting clear fluid drainage from right groin access site. Patient has significant swelling in the scrotum and pelvis as well as upper extremities. Objective - Vital Signs Vital signs: Vital Signs Temp 97.7 F 08/18/24 08:00 Pulse 68 08/18/24 10:30 Resp 28 H 08/18/24 10:30 BP 83/53 08/18/24 10:15 Pulse Ox 100 08/18/24 10:30 FiO2 35 08/18/24 09:26 Intake & Output 08/17/24 08/18/24 08/18/24 18:59 06:59 18:59 Intake Total 452.361 8691.378 626.300 Output Total 470 450 250 Balance 169.443 572.378 376.300 Weight 59 kg Intake: IV 261 96 142 Piperacillin-Tazobactam 3 175 50 100 .375 gm In Sodium Chloride 0.9% 100 ml @ 25 mls/hr IVPB Q8HR [facility] Rx# :[id number] Sodium Chloride 0.9% 1, 50 10 30 000 ml @ 10 mls/hr IV . Q24H [facility] Rx#:[id number] pressure bag 36 36 12 Intake, IV Titration 138.443 286.378 174.300 Amount Norepinephrine 8 mg In 61.989 186.378 25.813 Sodium Chloride 0.9% 250 ml @ 0.03 MCG/KG/MIN 3. 152 mls/hr IV .Q24H [facility] Rx#:[id number] Vasopressin 60 unit In 148.487 Sodium Chloride 0.9% 150 ml @ 0.03 UNITS/MIN 4.59 mls/hr IV .Q24H [facility] Rx#: [id number] propofoL 1,000 mg In 76.454 100.000 Empty Bag 1 bag @ 15 MCG/ KG/MIN 4.887 mls/hr IV . [id number] [facility] Rx#:[id number] Tube Feeding 40 240 80 Other 200 400 230 Output: Urine 470 450 250 Other: Voiding Method Indwelling Catheter Indwelling Catheter ABP, PAP, CO, CI - Last Documented Arterial Blood Pressure 112/46 - Exam General appearance: The patient is sedated and intubated HET: Head is normocephalic and atraumatic. Neck: Supple. Heart: Regular. Lungs: On mechanical ventilation. Equal expansion. Abdomen: Soft, nondistended, hypoactive bowel sounds. Pelvis with edema. Skin: Scrotal swelling. Extremities: Normal skin color and turgor. Palpable DP pulses bilaterally. Right groin access site with clear fluid draining. Neurological: Sedated and intubated. - Labs CBC & Chem 7: 08/18/24 06:39 08/18/24 06:39 Labs: Abnormal Lab Results - Last 24 Hours (Table) 08/17/24 08/17/24 08/17/24 Range/Units 12:01 18:05 23:41 WBC (3.8-10.6) k/uL RBC (4.30-5.90) m/uL Hgb (13.0-17.5) gm/dL Hct (39.0-53.0) % MCHC (31.0-37.0) g/dL RDW (11.5-15.5) % Neutrophils # (Manual) (1.3-7.7) k/uL Lymphocytes # (Manual) (1.0-4.8) k/uL ABG pH (7.35-7.45) ABG pCO2 (35-45) mmHg ABG pO2 (83-108) mmHg ABG O2 Saturation (94-97) % Hemoglobin (13.0-17.5) gm/dL Chloride (98-107) mmol/L BUN (9-20) mg/dL Glucose (74-99) mg/dL POC Glucose (mg/dL) 162 H 201 H 207 H (70-110) mg/dL Magnesium (1.6-2.3) mg/dL 08/18/24 08/18/24 08/18/24 Range/Units 05:12 06:38 06:39 WBC 28.6 H (3.8-10.6) k/uL RBC 3.05 L (4.30-5.90) m/uL Hgb 8.5 L (13.0-17.5) gm/dL Hct 27.5 L (39.0-53.0) % MCHC 30.8 L (31.0-37.0) g/dL RDW 17.6 H (11.5-15.5) % Neutrophils # (Manual) 28.00 H (1.3-7.7) k/uL Lymphocytes # (Manual) 0.29 L (1.0-4.8) k/uL ABG pH 7.29 L (7.35-7.45) ABG pCO2 47 H (35-45) mmHg ABG pO2 119 H (83-108) mmHg ABG O2 Saturation 99.0 H (94-97) % Hemoglobin 8.5 L (13.0-17.5) gm/dL Chloride (98-107) mmol/L BUN (9-20) mg/dL Glucose (74-99) mg/dL POC Glucose (mg/dL) 219 H (70-110) mg/dL Magnesium (1.6-2.3) mg/dL 08/18/24 Range/Units 06:39 WBC (3.8-10.6) k/uL RBC (4.30-5.90) m/uL Hgb (13.0-17.5) gm/dL Hct (39.0-53.0) % MCHC (31.0-37.0) g/dL RDW (11.5-15.5) % Neutrophils # (Manual) (1.3-7.7) k/uL Lymphocytes # (Manual) (1.0-4.8) k/uL ABG pH (7.35-7.45) ABG pCO2 (35-45) mmHg ABG pO2 (83-108) mmHg ABG O2 Saturation (94-97) % Hemoglobin (13.0-17.5) gm/dL Chloride 118 H (98-107) mmol/L BUN 49 H (9-20) mg/dL Glucose 203 H (74-99) mg/dL POC Glucose (mg/dL) (70-110) mg/dL Magnesium 2.4 H (1.6-2.3) mg/dL Microbiology - Last 24 Hours (Table) 08/16/24 13:14 Blood Culture - Preliminary Blood 08/14/24 14:55 Gram Stain - Final Sputum Sputum Culture - Final Pseudomonas aeruginosa Assessment and Plan Assessment: 1. Ruptured 12.5 infrarenal abdominal aortic aneurysm status post percutaneous endovascular aortic repair 2. Hemorrhagic shock secondary to above, status post 6 units of packed RBC and 4 units of FFP 3. Bilateral common iliac artery stenosis status post percutaneous transluminal balloon angioplasty and stent placement 4. Acute blood loss anemia secondary to ruptured infrarenal abdominal aortic an eurysm. Hemoglobin stable 5. Acute hypercapnic respiratory failure likely secondary to COPD exacerbation, currently intubated on mechanical ventilator 6. COPD 7. Smoker 8. Hypertension 9. Hyperlipidemia 10. 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 Patient is post percutaneous endovascular abdominal aortic repair with bilateral common iliac artery balloon angioplasty and stent placement 2. Continue tube feedings as ordered per recommendations from dietitian 3. There is no further indication for any vascular surgical intervention 4. 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 The impression and plan of care has been dictated as directed. Dr. Robles I performed a history and examination of this patient, discussed the same with the dictator. I agree with the dictator's note ,documented as a scribe. Any additional findings or plans will be noted.
[2024-08-18 11:43] LABS: Glucose,Whole Blood 225 mg/dL (70-110)
--- NOTE | 2024-08-18 12:53 | P.PN ---
Subjective Progress Note Date: 08/18/24 78-year-old male patient with past medical tree significant for COPD, aortic aneurysm who presented to ER with a complaint of acute onset abdominal pain and back pain. Patient was afebrile in the ED, was tachycardic and hypotensive, required epinephrine drip. Was saturating 98% on 2 L. Patient denied any fever, chills, sore throat, productive cough, shortness of breath, chest pain, palpitations, dysuria urgency frequency weakness or numbness to extremities, diarrhea or constipation. WBCs were 15.6, hemoglobin 11.8, platelet 87. INR 1.1. Sodium 135 potassium 4.0 chloride 101 CO2 24 BUN 23 creatinine 0.45. Liver profile and lipase was unremarkable. Patient was afebrile tachycardic and hypotensive, required epinephrine drip. Ultrasound showed probable ruptured AAA with pulsatile mass. CT angio showed a large 11.8 cm aneurysm with stranding concerning for rupture. Patient was taken to [facility] for emergent endovascular aortic repair. 08/14--patient was seen and examined today. Son at bedside. Patient feeling better. Afebrile, tachycardic with heart rate in the low 100s, tachypneic with respiratory rate 20, blood pressure is low 107/51. Patient denied any nausea vomiting abdominal pain, dizziness. Currently on 2 L oxygen. Was tachycardic overnight. No flatus. So far 5 units packed RBCs and 4 units of FFP transfusion. Hemoglobin currently stable. Vascular surgery following. ICU following. WBCs 20.1, hemoglobin 9.2, platelet 139. BUN 32, creatinine 0.96. 08/15--patient was seen and examined today. Patient had acute hypercapnic respiratory failure due to his advanced COPD yesterday, ICU was consulted and patient got intubated. Patient remains intubated on mechanical ventilation, on propofol, 40% FiO2 and PEEP of 5. Blood gases showed pH 7.25 with pCO2 38 and pO2 173. Repeat chest x-ray today showed adequate positioning of orotracheal tube. Chest x-ray showed multifocal infiltrates in addition to COPD. Patient also on vasopressorsLevophed and vasopressin. Patient's hemoglobin was 7.6, received another unit of packed RBCs today, total 6 units of packed RBCs so far. On IV fluids due to low blood pressure and decreased urine output. Echocardiogram yesterday showed hyperdynamic LV, moderate amount of pericardial effusion without tamponade. 08/16. Patient seen and examined. Blood work done today showed WBC 20.4, hemoglobin 9.8, platelet count 188, sodium 141, potassium 4.4, BUN 40, current 1.02, glucose 150 magnesium 2.4. Patient continues to be intubated, currently on FiO2 of 35%. Currently on vasopressin, Levophed. Continues to be on prop ofol. Son at the bedside, updated about patient's progress 08/17. Patient seen and examined.,Labs reviewed showed WBC 23.8, hemoglobin 9, platelet count 194, sodium 148, potassium 4.3 BUN 44, creatinine 1.09. Currently on propofol. Continues to be on vasopressors in the form of vasopres sin and norepinephrine. 08/18. Patient seen and examined. Patient continues to be on mechanical ve ntilation. Surgery have been consulted for possible tracheostomy. Currently on tube feeding. REVIEW OF SYSTEMS: Review of system cannot be obtained as patient currently intubated PHYSICAL EXAMINATION: GENERAL: The patient is intubated HEENT: Pupils are round and equally reacting to light. EOMI. No scleral icterus. No conjunctival pallor. Normocephalic, atraumatic. No pharyngeal erythema. No thyromegaly. CARDIOVASCULAR: S1 and S2 present. No murmurs, rubs, or gallops. PULMONARY: Chest is clear to auscultation, no wheezing or crackles. ABDOMEN: Soft, nontender, nondistended, normoactive bowel sounds. No palpable organomegaly. MUSCULOSKELETAL: No joint swelling or deformity. EXTREMITIES: No cyanosis, clubbing, or pedal edema. NEUROLOGICAL: Currently intubated SKIN: No rashes. Assessment and plan Ruptured aortic aneurysm: Hemorrhagic shock: Acute blood loss anemia: Retroperitoneal hematoma: Presented with acute onset abdominal pain and back pain Ultrasound in the ED concerning for probable ruptured AAA with pulsatile mass. Was tachycardic, hypotensive required epinephrine drip. CT angio showed a large 11.8 cm aneurysm with stranding concerning for rupture, with large right retroperitoneal hematoma Patient was taken to [facility] by vascular surgery status post percutaneous endovascular aortic repair, percutaneous transluminal balloon angioplasty of bilateral EUFEMIA, stent placement of bilateral EUFEMIA due to severe stenosis 08/13 Status post 6 units of packed RBCs, 4 units of FFP. Monitor vitals and labs Monitor H&H, transfuse for hemoglobin less than 7.0. Neurovascular checks. Vascular surgery following ICU consulted --- on vasopressors Acute hypoxic hypercapnic respiratory failure requiring intubation mechanical ventilation: Advanced COPD: Acute COPD exacerbation: Pneumonia: Patient required intubation and mechanical ventilation on 08/14 due to acute hypoxic hypercapnic respiratory failure. Continue vent management Nebulizer/bronchodilator protocol, Solu-Medrol Zosyn Continue tube feeding Hypertension BPH Labs and medication were reviewed.. Continue same treatment. Continue with symptomatic treatment. Resume home medication. Monitor labs and vitals. DVT and GI prophylaxis. Further recommendations as per clinical course of the patient Dictation was produced using [employer] dictation software. please excuse any grammatical, word or spelling errors. Objective - Vital Signs Vital signs: Vital Signs Temp 98.2 F 08/18/24 12:00 Pulse 67 08/18/24 12:30 Resp 28 H 08/18/24 12:30 BP 92/48 08/18/24 12:15 Pulse Ox 100 08/18/24 12:30 FiO2 35 08/18/24 12:19 Intake & Output 08/17/24 08/18/24 08/18/24 18:59 06:59 18:59 Intake Total 173.328 0874.378 793.511 Output Total 470 450 330 Balance 169.443 572.378 463.511 Weight 59 kg Intake: IV 261 96 168 Piperacillin-Tazobactam 3 175 50 100 .375 gm In Sodium Chloride 0.9% 100 ml @ 25 mls/hr IVPB Q8HR [facility] Rx# :[id number] Sodium Chloride 0.9% 1, 50 10 50 000 ml @ 10 mls/hr IV . Q24H [facility] Rx#:[id number] pressure bag 36 36 18 Intake, IV Titration 138.443 286.378 225.511 Amount Norepinephrine 8 mg In 61.989 186.378 33.448 Sodium Chloride 0.9% 250 ml @ 0.03 MCG/KG/MIN 3. 152 mls/hr IV .Q24H [facility] Rx#:[id number] Vasopressin 60 unit In 148.487 Sodium Chloride 0.9% 150 ml @ 0.03 UNITS/MIN 4.59 mls/hr IV .Q24H [facility] Rx#: [id number] propofoL 1,000 mg In 76.454 100.000 43.576 Empty Bag 1 bag @ 15 MCG/ KG/MIN 4.887 mls/hr IV . [id number] [facility] Rx#:[id number] Tube Feeding 40 240 140 Other 200 400 260 Output: Urine 470 450 330 Other: Voiding Method Indwelling Catheter Indwelling Catheter ABP, PAP, CO, CI - Last Documented Arterial Blood Pressure 113/45 - Labs CBC & Chem 7: 08/18/24 06:39 08/18/24 06:39 Labs: Abnormal Lab Results - Last 24 Hours (Table) 08/17/24 08/17/24 08/18/24 Range/Units 18:05 23:41 05:12 WBC (3.8-10.6) k/uL RBC (4.30-5.90) m/uL Hgb (13.0-17.5) gm/dL Hct (39.0-53.0) % MCHC (31.0-37.0) g/dL RDW (11.5-15.5) % Neutrophils # (Manual) (1.3-7.7) k/uL Lymphocytes # (Manual) (1.0-4.8) k/uL ABG pH 7.29 L (7.35-7.45) ABG pCO2 47 H (35-45) mmHg ABG pO2 119 H (83-108) mmHg ABG O2 Saturation 99.0 H (94-97) % Hemoglobin 8.5 L (13.0-17.5) gm/dL Chloride (98-107) mmol/L BUN (9-20) mg/dL Glucose (74-99) mg/dL POC Glucose (mg/dL) 201 H 207 H (70-110) mg/dL Magnesium (1.6-2.3) mg/dL 08/18/24 08/18/24 08/18/24 Range/Units 06:38 06:39 06:39 WBC 28.6 H (3.8-10.6) k/uL RBC 3.05 L (4.30-5.90) m/uL Hgb 8.5 L (13.0-17.5) gm/dL Hct 27.5 L (39.0-53.0) % MCHC 30.8 L (31.0-37.0) g/dL RDW 17.6 H (11.5-15.5) % Neutrophils # (Manual) 28.00 H (1.3-7.7) k/uL Lymphocytes # (Manual) 0.29 L (1.0-4.8) k/uL ABG pH (7.35-7.45) ABG pCO2 (35-45) mmHg ABG pO2 (83-108) mmHg ABG O2 Saturation (94-97) % Hemoglobin (13.0-17.5) gm/dL Chloride 118 H (98-107) mmol/L BUN 49 H (9-20) mg/dL Glucose 203 H (74-99) mg/dL POC Glucose (mg/dL) 219 H (70-110) mg/dL Magnesium 2.4 H (1.6-2.3) mg/dL 08/18/24 Range/Units 11:42 WBC (3.8-10.6) k/uL RBC (4.30-5.90) m/uL Hgb (13.0-17.5) gm/dL Hct (39.0-53.0) % MCHC (31.0-37.0) g/dL RDW (11.5-15.5) % Neutrophils # (Manual) (1.3-7.7) k/uL Lymphocytes # (Manual) (1.0-4.8) k/uL ABG pH (7.35-7.45) ABG pCO2 (35-45) mmHg ABG pO2 (83-108) mmHg ABG O2 Saturation (94-97) % Hemoglobin (13.0-17.5) gm/dL Chloride (98-107) mmol/L BUN (9-20) mg/dL Glucose (74-99) mg/dL POC Glucose (mg/dL) 225 H (70-110) mg/dL Magnesium (1.6-2.3) mg/dL Microbiology - Last 24 Hours (Table) 08/16/24 13:14 Blood Culture - Preliminary Blood 08/14/24 14:55 Gram Stain - Final Sputum Sputum Culture - Final Pseudomonas aeruginosa
--- NOTE | 2024-08-18 14:32 | P.PN ---
Subjective Progress Note Date: 08/18/24 Principal diagnosis: Acute abdominal aortic aneurysm rupture and hemorrhagic shock This is a 78-year-old male patient who presented to the emergency department with acute abdominal pain. The patient underwent a CTA of the aorta with runoff and the patient was found to have an i infrarenal abdominal aortic aneurysm measuring 11.4 x 11.8 cm in size and prominent concentric atherosclerotic plaque and adjacent stranding. This was consistent with rupture with a large hematoma in the retroperitoneal space. Emergent vascular consultation was obtained and the patient was taken to the [facility] and the patient underwent a endovascular aortic repair with AFX II device and the patient also underwent percutaneous transluminal balloon angioplasty of bilateral common iliac arteries, percutaneous transluminal stent placement in the bilateral common iliac arteries due to severe stenosis and percutaneous closure of the bilateral femoral arteries with Perclose x 2 and left Angio-Seal. Postop, the patient was brought into the intensive care unit. At the time of his arrival, the patient was on 6 L of oxygen simple mask. His cardiac rhythm is sinus although the patient was still tachycardic and borderline hypotensive with a BP of 84/50. Noted, in the emergency the patient was initially started on esmolol drip. Subsequently, due to hypotension, the drip was discontinued and the patient was given a combination of Kwesi-Synephrine and vasopressin. At the time of arrival to the ICU, the patient was on no pressors. The patient has already received a total of 4 units of packed RBC and 4 units of fresh frozen plasma. Pulses in the lower extremities are diminished at the present. The patient also has a left IJ cordis and an arterial line in place. Awake and alert and communicating. The white cell count was at 15.6 with a hemoglobin 11.8 at time of admission and a platelet count of 421. Patient also had a sodium level of 135, BUN of 23 and a creatinine of 0.4. Normal LFTs. Normal amylase and lipase. Troponins were negative. The patient has no chest pain. No significant respiratory distress at this point in time. He is known to have COPD with an FEV1 of 38 to 42% of predicted and chronic hypoxic respiratory failure. He is also known to have hypertension hyperlipidemia and previous history of cutaneous T-cell lymphoma, mycosis fungoides. On 08/14/2024, patient is being seen for a follow-up. Earlier this morning, the patient's breathing was quite labored even at rest. He was increasingly bronchospastic and wheezy. The same time, he was still awake and alert and communicating. He was on oxygen 2 L/min nasal cannula. He was given bronchodilators and she was also started on steroids. Later on, by afternoon, the patient became more obtunded and lethargic and weak. At that point, a blood gas was done that showed a pH of 7.1 with a pCO2 of 72 and pO2 of 156 and based on that, the patient was intubated and placed on the mechanical ventilator. He is currently on assist-control mode of mechanical ventilation at rate of 20, tidal volume of 350, FiO2 of 100% with a PEEP of 5. Awaiting follow-up blood gases. Postintubation chest x-ray showed COPD with bilateral hyperinflation. Orogastric tube was in high position needed to be advanced. Orotracheal tube was in satisfactory position. The patient has subtle scattered opacities bilate rally. Postintubation, the patient encountered significant hypotension. The patient was immediately given 2 L of IV fluids nasal cannula and the patient was started on norepinephrine for blood pressure support. Noted, prior to that, the patient was on no pressors and the patient was doing well emergency at rate of 100 cc an hour. He continues to be sinus tachycardia. Repeat blood work was do ne and the patient white cell count of 20.7 with a hemoglobin of 8.1 and a platelet count of 143. Hemoglobin has remained stable at 8.1. BUN 32 with a creatinine of 0.9 and sodium levels at 139 and potassium level is at 4.4. Pulses lower extremities are diminished. They are obtainable by Doppler signal. On 08/15/2024, the patient is being seen for a follow-up. As stated, the patient was intubated yesterday due to acute hypercapnic respiratory failure due to his advanced COPD. This morning, the patient remains intubated on mechanical ventilator. On propofol running at 50 mcg/kg/min. He is on assist-control mode of mechanical ventilation at rate of 28, tidal volume of 350, FiO2 of 40% and a PEEP of 5. Blood gas showed a pH of 7.25 with a pCO2 of 38 and pO2 of 173. The follow-up chest x-ray from today shows adequate positioning of the orotracheal tube. The patient also has stable multifocal acute infiltrates in the background in addition to COPD and some leukocytosis. The patient was empirically started on IV Zosyn. Also, the patient postintubation, the patient became hypotensive and developed an acute kidney injury. This morning, the patient remains on pressors and norepinephrine running at 0.29 mcg/kg/min and patient is also on physiologic dose of vasopressin at 0.03 units. Hemoglobin is at 7.6 and the patient will be given another unit of packed RBC per vascular s urgery recommendations. Urine output is in order of 30 to 50 cc an hour. The patient remains on normal saline at rate of 150 cc an hour. He is not in significant positive fluid balance of at least 5.7 L for yesterday of 4.0 L the day prior. Possible lower extremity are diminished at 0 obtainable by Doppler signals. The white cell count is 14.7, hemoglobin 9.6 and a platelet count of 185. S the CBC was obtained following the packed RBC transfusion. Sodium level is at 144, potassium is at 4.4, BUN 42 with a creatinine 1.35 and the patient has developed an acute kidney injury. The patient also has a component of Bettina E acidosis with a serum bicarb of 17. LFTs are normal. Total protein is at 4.4 with an albumin level of 2.4. Echocardiogram was completed on 08/14/2024 and the patient was found to have hyperdynamic LV, moderate amount of pericardial effusion without tamponade physiology. No significant valvular abnormalities noted. The patient also has an orogastric tube in place. There is some greenish bilious material coming of the OG tube and this has been ongoing in the order of 300 cc over the past 12 hours. No indication for an upper GI bleed. On 08/16/2024, the patient is being seen in follow-up in intensive care unit. This morning, the patient remains on propofol which is running at 25 mcg/kg/min. The patient is calm and comfortable and synchronous on mechanical ventilator. The patient remains on assist-control rate of 28, tidal volume of 350, FiO2 35% with a PEEP of 5. Blood gas showed a pH of 7.26 with a pCO2 of 38 and pO2 of 126. Chest x-ray from today shows small left-sided pleural effusion, right basilar atelectasis and there are some signs of early volume overload. Clinically, the patient is significantly in a positive fluid balance and volume overload. The patient has developed scrotal and bilateral lower and upper extremity edema. There is also some oozing of fluid from the surgical sites in the groins bilaterally. Fluid balance has been +9.2 L over the past 24 hours. Remains on NS at a rate of 75 cc an hour. Remains on pressors and the patient was on norepinephrine at 0.21 mcg/kg/min and this was reduced down to 0.1 mcg and the patient remains on vasopressin physiologic dose. Urine output is order of 50 to 75 cc an hour. Fluid balance +9 L at least over the past 24 hours. Afebrile. White cell count of 20.4 and the patient is currently on empiric antibiotic coverage with IV Zosyn. Hemoglobin is 9.8 and a platelet count of 188. BUN is 40 with a creatinine of 1.02 and serum bicarbonate 15 with an anion gap of 11. Glucose at 190. The patient remains n.p.o. as the patient was having increased output from the NG tube. The output has improved over the past 12 hours and the patient will be started or given a trial of enteral feeding for nutritional support. On 08/17/2024, the patient remains intubated on mechanical ventilator. This morning he is sedated on propofol running at 20 mcg/kg/min. He is on assist-con trol mode of mechanical ventilation at rate of 28, tidal volume of 350, FiO2 35% with a PEEP of 5. Blood gas showed pH of 7.28 with a pCO2 of 41 and pO2 124. He was started on vital HP at rate of 10 cc an hour. 2 bowel movements already. Chest x-ray from today shows development of small bilateral pleural effusions left more than right. Catheters are all in good location. The patient remains on pressors. Norepinephrine running at 0.12 mcg/kg/min. Vasopressin physiologic dose. Fluid balance is positive for 62 cc over the past 24 hours. Less bronchospastic and wheezy on examination with a peak airway pressure of 27. The white cell count is 23, hemoglobin is 9 and a platelet count of 194. The sodium level is at 148, BUN is 44 with a creatinine of 1.09. Potassium level is at 4.3. Metabolic acidosis also improving and the serum bicarb is up to 19. Remains on empiric antibiotic coverage with IV Zosyn. No other significant events overnight. Patient was seen today on 08/18/2024, remains in the ICU intubated and mechanically ventilated patient is on assist-control rate of 28 tidal volume 350 FiO2 35% and PEEP of 5 ABG showed a pO2 of 119 pCO2 47 pH of 7.29. Hence no changes were made in vent settings. Patient is requiring pressors in the form of norepinephrine at 0.03 mcg/kg/min he is also on vasopressin at 0.03 units/h. On propofol at 25 mcg/kg/min patient has received a total of 6 units of packed RBCs and 4 units of fresh frozen plasma since admission. Sputum is positive for Pseudomonas patient remains on Zosyn. Patient presented initially on 08/13 with abdominal aortic aneurysm rupture, requiring percutaneous endovascular aortic repair under ultrasound-guided access, percutaneous transluminal balloon angioplasty of bilateral common iliac arteries and percutaneous transluminal covered stent placement of bilateral common iliac arteries due to severe stenosis patient also had percutaneous closure of bilateral femoral arteries, right Perclose x 2 and left Angio-Seal. This was also done on 08/13/2024 by vascular surgery. Patient remains intubated mechanically ventilated, he is requiring propofol, not quite ready for weaning however I have asked the nurses to give the patient at least a sedation holiday today and address mental status obviously the patient is still hemodynamically unstable and not ready for full weaning. WBC count today is elevated at 28.6 hemoglobin 8.5 platelets are 187, basic metabolic profile is normal BUN is 49 creatinine 0.98. Microbiology rodriguez patient had Pseudomonas aeruginosa in the sputum. Sensitive to Zosyn, sensitive to cefepime and ciprofloxacin. Objective - Vital Signs Vital signs: Vital Signs Temp 98.2 F 08/18/24 12:00 Pulse 85 08/18/24 14:15 Resp 28 H 08/18/24 14:15 BP 107/61 08/18/24 14:15 Pulse Ox 100 08/18/24 14:15 FiO2 35 08/18/24 12:19 Intake & Output 08/17/24 08/18/24 08/18/24 18:59 06:59 18:59 Intake Total 577.059 2404.378 905.617 Output Total 470 450 410 Balance 169.443 572.378 495.617 Weight 59 kg 59 kg Intake: IV 261 96 194 Piperacillin-Tazobactam 3 175 50 100 .375 gm In Sodium Chloride 0.9% 100 ml @ 25 mls/hr IVPB Q8HR [facility] Rx# :[id number] Sodium Chloride 0.9% 1, 50 10 70 000 ml @ 10 mls/hr IV . Q24H [facility] Rx#:[id number] pressure bag 36 36 24 Intake, IV Titration 138.443 286.378 251.617 Amount Norepinephrine 8 mg In 61.989 186.378 49.943 Sodium Chloride 0.9% 250 ml @ 0.03 MCG/KG/MIN 3. 152 mls/hr IV .Q24H [facility] Rx#:[id number] Vasopressin 60 unit In 148.487 Sodium Chloride 0.9% 150 ml @ 0.03 UNITS/MIN 4.59 mls/hr IV .Q24H [facility] Rx#: [id number] propofoL 1,000 mg In 76.454 100.000 53.187 Empty Bag 1 bag @ 15 MCG/ KG/MIN 4.887 mls/hr IV . [id number] [facility] Rx#:[id number] Tube Feeding 40 240 200 Other 200 400 260 Output: Urine 470 450 410 Other: Voiding Method Indwelling Catheter Indwelling Catheter ABP, PAP, CO, CI - Last Documented Arterial Blood Pressure 126/53 - Exam HEENT: Pupils are round and equally reacting to light. EOMI. No scleral icterus. No conjunctival pallor. Normocephalic, atraumatic. No pharyngeal erythema. No thyromegaly. Head: Atraumatic, normocephalic CARDIOVASCULAR: S1 and S2 present. No murmurs, rubs, or gallops. PULMONARY: Crackles at the bases with rhonchi. Symmetrical chest expansion. ABDOMEN: Nontender nonboggy no rebound no guarding MUSCULOSKELETAL: No deformities, EXTREMITIES: No cyanosis, clubbing, or pedal edema. Patient does have significant scrotal swelling and upper extremities edema. NEUROLOGICAL: Could not assess, patient is sedated SKIN: No rashes. - Labs CBC & Chem 7: 08/18/24 06:39 08/18/24 06:39 Labs: Abnormal Lab Results - Last 24 Hours (Table) 08/17/24 08/17/24 08/18/24 Range/Units 18:05 23:41 05:12 WBC (3.8-10.6) k/uL RBC (4.30-5.90) m/uL Hgb (13.0-17.5) gm/dL Hct (39.0-53.0) % MCHC (31.0-37.0) g/dL RDW (11.5-15.5) % Neutrophils # (Manual) (1.3-7.7) k/uL Lymphocytes # (Manual) (1.0-4.8) k/uL ABG pH 7.29 L (7.35-7.45) ABG pCO2 47 H (35-45) mmHg ABG pO2 119 H (83-108) mmHg ABG O2 Saturation 99.0 H (94-97) % Hemoglobin 8.5 L (13.0-17.5) gm/dL Chloride (98-107) mmol/L BUN (9-20) mg/dL Glucose (74-99) mg/dL POC Glucose (mg/dL) 201 H 207 H (70-110) mg/dL Magnesium (1.6-2.3) mg/dL 08/18/24 08/18/24 08/18/24 Range/Units 06:38 06:39 06:39 WBC 28.6 H (3.8-10.6) k/uL RBC 3.05 L (4.30-5.90) m/uL Hgb 8.5 L (13.0-17.5) gm/dL Hct 27.5 L (39.0-53.0) % MCHC 30.8 L (31.0-37.0) g/dL RDW 17.6 H (11.5-15.5) % Neutrophils # (Manual) 28.00 H (1.3-7.7) k/uL Lymphocytes # (Manual) 0.29 L (1.0-4.8) k/uL ABG pH (7.35-7.45) ABG pCO2 (35-45) mmHg ABG pO2 (83-108) mmHg ABG O2 Saturation (94-97) % Hemoglobin (13.0-17.5) gm/dL Chloride 118 H (98-107) mmol/L BUN 49 H (9-20) mg/dL Glucose 203 H (74-99) mg/dL POC Glucose (mg/dL) 219 H (70-110) mg/dL Magnesium 2.4 H (1.6-2.3) mg/dL 08/18/24 Range/Units 11:42 WBC (3.8-10.6) k/uL RBC (4.30-5.90) m/uL Hgb (13.0-17.5) gm/dL Hct (39.0-53.0) % MCHC (31.0-37.0) g/dL RDW (11.5-15.5) % Neutrophils # (Manual) (1.3-7.7) k/uL Lymphocytes # (Manual) (1.0-4.8) k/uL ABG pH (7.35-7.45) ABG pCO2 (35-45) mmHg ABG pO2 (83-108) mmHg ABG O2 Saturation (94-97) % Hemoglobin (13.0-17.5) gm/dL Chloride (98-107) mmol/L BUN (9-20) mg/dL Glucose (74-99) mg/dL POC Glucose (mg/dL) 225 H (70-110) mg/dL Magnesium (1.6-2.3) mg/dL Microbiology - Last 24 Hours (Table) 08/16/24 13:14 Blood Culture - Preliminary Blood 08/14/24 14:55 Gram Stain - Final Sputum Sputum Culture - Final Pseudomonas aeruginosa Assessment and Plan Assessment: Impression: Abdominal aortic aneurysm rupture, status post repair, postoperative day #5The patient underwent emergent endovascular aortic repair with a AFX 2 device. The patient also underwent percutaneous balloon angioplasty of bilateral common iliac arteries and stent placement in the bilateral common iliacs for severe vascular disease. Hemorrhagic shock secondary to above. Required a total of 6 units of packed RBCs and 4 units of fresh frozen plasma Acute hypercapnic respiratory failure with secondary diminished level of consciousness secondary COPD exacerbation. Acute blood loss anemia, awaiting follow-up hemoglobin. Volume overload with significant positive fluid balance and increasing edema in upper and lower extremities and scrotal edema. Acute kidney injury, likely secondary to hypotension/postsurgical ATN, recovered and the patient renal function has normalized Non-anion gap metabolic acidosis, improving and serum bicarb is up to 19 Mild hyponatremia, hypochloremic COPD, severe with an FEV1 of 38 to 42% of predicted Chronic hypoxic respiratory failure, secondary to COPD History of cutaneous T-cell lymphoma/mycosis fungoides Hypertension Hyperlipidemia BPH Chronic smoker Recommendation: Continue ventilatory support Continue hemodynamic support patient is requiring norepinephrine and vasopressin titrate accordingly Continue nutritional support/enteral feeding Continue Zosyn/antibiotic for pseudomonal coverage in the sputum Continue to monitor I's and O's Continued GI and DVT prophylaxis Continue bronchodilators Continue IV Solu-Medrol Give the patient a sedation holiday and assess mental status and decide on weaning but obviously he is not ready to be weaned yet, patient is critically ill and requiring pressors remains quite critically ill. Critical care time is 35 minutes Time with Patient: Greater than 30
[2024-08-18 17:47] LABS: Glucose,Whole Blood 215 mg/dL (70-110)
[2024-08-18 23:13] LABS: Glucose,Whole Blood 166 mg/dL (70-110)
[2024-08-19 04:05] LABS: HCT 26.2 % (39.6-50.0); HGB 8.5 g/dL (13.0-17.0); MCH 28.6 pg (27.0-32.0); MCHC 32.4 g/dL (32.0-37.0); MCV 88.2 fL (80.0-97.0); Platelet Count 160 10*3/uL (140-440); RBC 2.97 10*6/uL (4.40-5.60); RDW 19.2 % (11.5-14.5); WBC 35.72 10*3/uL (4.50-10.00)
[2024-08-19 04:28] LABS: African American GFR (CKD) >90 (>60 ml/min/1.73 sqM); Anion Gap 5 mmol/L; Blood Urea Nitrogen 54 mg/dL (9-20); Calcium 9.4 mg/dL (8.4-10.2); Carbon Dioxide 25 mmol/L (22-30); Chloride 118 mmol/L (98-107); Glucose 198 mg/dL (74-99); Magnesium 2.3 mg/dL (1.6-2.3); Non-African American GFR(CKD) 89 (>60 ml/min/1.73 sqM); Potassium 3.9 mmol/L (3.5-5.1); Sodium 148 mmol/L (137-145)
[2024-08-19 05:38] LABS: ABG Base Excess 0.2 mmol/L; ABG HCO3 26 mmol/L (21-25); ABG Oxygen Saturation 99.4 % (94-97); ABG PCO2 45 mmHg (35-45); ABG PH 7.37 (7.35-7.45); ABG PO2 131 mmHg (83-108); ABG TCO2 27 mmol/L (19-24)
[2024-08-19 05:40] LABS: Allen Test Performed? no
[2024-08-19] MEDS: POTASSIUM BICARBONATE/CIT AC 20 MEQ TABLET.EFF NG-TUBE SCH (05:44)
[2024-08-19 05:51] LABS: Glucose,Whole Blood 202 mg/dL (70-110)
--- NOTE | 2024-08-19 08:00 | XR ---
EXAMINATION TYPE: XR chest 1V portable DATE OF EXAM: 08/19/2024 CLINICAL INDICATION: Male, 78 years old with history of vent, progress study. Shortness of breath TECHNIQUE: Single AP portable semiupright view of the chest is obtained. COMPARISON: Chest x-ray from one day earlier and older studies. FINDINGS: Stable endotracheal and orogastric tubes. Background chronic parenchymal changes bilaterally. Multifocal increased opacities bilaterally are re demonstrated. Cardiac silhouette size is stable and within normal limits with atherosclerotic thoraci c aorta. Osseous structures are intact. IMPRESSION: Subtle bilateral multifocal acute infiltrates on background chronic parenchymal fibrosis and small left pleural effusion. No significant change from one day earlier. [facility], , 08/19/2024 7:58 AM
[2024-08-19] MEDS: DEXTROSE 5% IN WATER 1,000 ML IV SCH (10:06)
--- NOTE | 2024-08-19 12:08 | P.PN ---
Subjective 78-year-old male patient with past medical tree significant for COPD, aortic aneurysm who presented to ER with a complaint of acute onset abdominal pain and back pain. Patient was afebrile in the ED, was tachycardic and hypotensive, required epinephrine drip. Was saturating 98% on 2 L. Patient denied any fever, chills, sore throat, productive cough, shortness of breath, chest pain, palpitations, dysuria urgency frequency weakness or numbness to extremities, diarrhea or constipation. WBCs were 15.6, hemoglobin 11.8, platelet 87. INR 1.1. Sodium 135 potassium 4.0 chloride 101 CO2 24 BUN 23 creatinine 0.45. Liver profile and lipase was u nremarkable. Patient was afebrile tachycardic and hypotensive, required epinephrine drip. Ultrasound showed probable ruptured AAA with pulsatile mass. CT angio showed a large 11.8 cm aneurysm with stranding concerning for rupture. Patient was taken to [facility] for emergent endovascular aortic repair. 08/14--patient was seen and examined today. Son at bedside. Patient feeling better. Afebrile, tachycardic with heart rate in the low 100s, tachypneic with respiratory rate 20, blood pressure is low 107/51. Patient denied any nausea vomiting abdominal pain, dizziness. Currently on 2 L oxygen. Was tachycardic overnight. No flatus. So far 5 units packed RBCs and 4 units of FFP transfusion. Hemoglobin currently stable. Vascular surgery following. ICU following. WBCs 20.1, hemoglobin 9.2, platelet 139. BUN 32, creatinine 0.96. 08/15--patient was seen and examined today. Patient had acute hypercapnic respiratory failure due to his advanced COPD yesterday, ICU was consulted and patient got intubated. Patient remains intubated on mechanical ventilation, on propofol, 40% FiO2 and PEEP of 5. Blood gases showed pH 7.25 with pCO2 38 and pO2 173. Repeat chest x-ray today showed adequate positioning of orotracheal tube. Chest x-ray showed multifocal infiltrates in addition to COPD. Patient also on vasopressorsLevophed and vasopressin. Patient's hemoglobin was 7.6, received another unit of packed RBCs today, total 6 units of packed RBCs so far. On IV fluids due to low blood pressure and decreased urine output. Echocardiogram yesterday showed hyperdynamic LV, moderate amount of pericardial effusion without tamponade. 08/16. Patient seen and examined. Blood work done today showed WBC 20.4, hemoglobin 9.8, platelet count 188, sodium 141, potassium 4.4, BUN 40, current 1.02, glucose 150 magnesium 2.4. Patient continues to be intubated, currently on FiO2 of 35%. Currently on vasopressin, Levophed. Continues to be on propofol. Son at the bedside, updated about patient's progress 08/17. Patient seen and examined.,Labs reviewed showed WBC 23.8, hemoglobin 9, platelet count 194, sodium 148, potassium 4.3 BUN 44, creatinine 1.09. Currently on propofol. Continues to be on vasopressors in the form of vasopressin and norepinephrine. 08/18. Patient seen and examined. Patient continues to be on mechanical ventilation. Surgery have been consulted for possible tracheostomy. Currently on tube feeding. 08/19 Patient remains in the ICU He remains on the vent Levophed dose is lowered to 0.02 today Consider sedation holiday. Patient opens eye however he does not follow command He was placed on D5W at 75 mL/h for hypernatremia as sodium today is 148. Will discuss with the family about plan Objective - Vital Signs Vital signs: Vital Signs Temp 97.8 F 08/19/24 08:00 Pulse 104 H 08/19/24 09:00 Resp 28 H 08/19/24 09:00 BP 129/71 08/19/24 08:15 Pulse Ox 98 08/19/24 09:00 FiO2 30 08/19/24 09:34 Intake & Output 08/18/24 08/19/24 08/19/24 18:59 06:59 18:59 Intake Total 0013.956 4518.034 369.219 Output Total 610 555 235 Balance 619.924 450.034 134.219 Weight 59 kg 60.2 kg Intake: IV 346 256 139 Piperacillin-Tazobactam 3 200 100 100 .375 gm In Sodium Chloride 0.9% 100 ml @ 25 mls/hr IVPB Q8HR [facility] Rx# :[id number] Sodium Chloride 0.9% 1, 110 120 30 000 ml @ 10 mls/hr IV . Q24H [facility] Rx#:[id number] pressure bag 36 36 9 Intake, IV Titration 273.924 139.034 20.219 Amount Norepinephrine 8 mg In 65.056 7.844 4.255 Sodium Chloride 0.9% 250 ml @ 0.03 MCG/KG/MIN 3. 152 mls/hr IV .Q24H [facility] Rx#:[id number] Vasopressin 60 unit In 148.487 68.773 Sodium Chloride 0.9% 150 ml @ 0.03 UNITS/MIN 4.59 mls/hr IV .Q24H [facility] Rx#: [id number] propofoL 1,000 mg In 60.381 62.417 15.964 Empty Bag 1 bag @ 15 MCG/ KG/MIN 4.887 mls/hr IV . [id number] [facility] Rx#:[id number] Tube Feeding 320 520 150 Other 290 90 60 Output: Urine 610 555 235 Other: Voiding Method Indwelling Catheter Indwelling Catheter # Bowel Movements 1 ABP, PAP, CO, CI - Last Documented Arterial Blood Pressure 131/59 - Exam -GENERAL: The patient is intubated and sedated HEENT: Pupils are round and equally reacting to light. EOMI. No scleral icterus. No conjunctival pallor. Normocephalic, atraumatic. No pharyngeal erythema. No thyromegaly. CARDIOVASCULAR: S1 and S2 present. No murmurs, rubs, or gallops. PULMONARY: Chest is clear to auscultation, no wheezing , no crackles. ABDOMEN: Soft, nontender, nondistended, normoactive bowel sounds. No palpable organomegaly. MUSCULOSKELETAL: No joint swelling or deformity. EXTREMITIES: No cyanosis, clubbing, or pedal edema. NEUROLOGICAL: Gross neurological examination did not reveal any focal deficits. SKIN: No rashes. no petechiae. - Labs CBC & Chem 7: 08/19/24 03:50 08/19/24 03:50 Labs: Abnormal Lab Results - Last 24 Hours (Table) 08/18/24 08/18/24 08/18/24 Range/Units 11:42 17:46 23:11 WBC (4.50-10.00) 10*3/uL RBC (4.40-5.60) 10*6/uL Hgb (13.0-17.0) g/dL Hct (39.6-50.0) % ABG pO2 (83-108) mmHg ABG HCO3 (21-25) mmol/L ABG Total CO2 (19-24) mmol/L ABG O2 Saturation (94-97) % Hemoglobin (13.0-17.5) gm/dL Sodium (137-145) mmol/L Chloride (98-107) mmol/L BUN (9-20) mg/dL Glucose (74-99) mg/dL POC Glucose (mg/dL) 225 H 215 H 166 H (70-110) mg/dL 08/19/24 08/19/24 08/19/24 Range/Units 03:50 03:50 05:35 WBC 35.72 H (4.50-10.00) 10*3/uL RBC 2.97 L (4.40-5.60) 10*6/uL Hgb 8.5 L (13.0-17.0) g/dL Hct 26.2 L (39.6-50.0) % ABG pO2 131 H (83-108) mmHg ABG HCO3 26 H (21-25) mmol/L ABG Total CO2 27 H (19-24) mmol/L ABG O2 Saturation 99.4 H (94-97) % Hemoglobin 8.6 L (13.0-17.5) gm/dL Sodium 148 H (137-145) mmol/L Chloride 118 H (98-107) mmol/L BUN 54 H (9-20) mg/dL Glucose 198 H (74-99) mg/dL POC Glucose (mg/dL) (70-110) mg/dL 08/19/24 Range/Units 05:50 WBC (4.50-10.00) 10*3/uL RBC (4.40-5.60) 10*6/uL Hgb (13.0-17.0) g/dL Hct (39.6-50.0) % ABG pO2 (83-108) mmHg ABG HCO3 (21-25) mmol/L ABG Total CO2 (19-24) mmol/L ABG O2 Saturation (94-97) % Hemoglobin (13.0-17.5) gm/dL Sodium (137-145) mmol/L Chloride (98-107) mmol/L BUN (9-20) mg/dL Glucose (74-99) mg/dL POC Glucose (mg/dL) 202 H (70-110) mg/dL Microbiology - Last 24 Hours (Table) 08/16/24 13:14 Blood Culture - Preliminary Blood Assessment and Plan Assessment: Ruptured aortic aneurysm: Hemorrhagic shock: Acute blood loss anemia: Retroperitoneal hematoma Acute hypoxic hypercapnic respiratory failure requiring intubation mechanical ventilation: Advanced COPD: Acute COPD exacerbation: Pneumonia Hypertension BPH Plan: Continue with IV Solu-Medrol 60 mg Continue with Zosyn Continue with D5W at 75 and monitor sodium level Pulmonary/clinic care team Hematology/oncology team GI and DVT prophylaxis Prognosis is guarded
[2024-08-19 12:33] LABS: Glucose,Whole Blood 208 mg/dL (70-110)
[2024-08-19] MEDS: MORPHINE SULFATE 2 MG/ML SYRINGE IV PRN (13:56)
--- NOTE | 2024-08-19 14:05 | P.PN ---
Subjective Progress Note Date: 08/19/24 Principal diagnosis: Acute abdominal aortic aneurysm rupture and hemorrhagic shock This is a 78-year-old male patient who presented to the emergency department with acute abdominal pain. The patient underwent a CTA of the aorta with runoff and the patient was found to have an i infrarenal abdominal aortic aneurysm measuring 11.4 x 11.8 cm in size and prominent concentric atherosclerotic plaque and adjacent stranding. This was consistent with rupture with a large hematoma in the retroperitoneal space. Emergent vascular consultation was obtained and the patient was taken to the Temporary Office Assistant and the patient underwent a endovascular aortic repair with AFX II device and the patient also underwent percutaneous transluminal balloon angioplasty of bilateral common iliac arteries, percutaneous transluminal stent placement in the bilateral common iliac arteries due to severe stenosis and percutaneous closure of the bilateral femoral arteries with Perclose x 2 and left Angio-Seal. Postop, the patient was brought into the intensive care unit. At the time of his arrival, the patient was on 6 L of oxygen simple mask. His cardiac rhythm is sinus although the patient was still tachycardic and borderline hypotensive with a BP of 84/50. Noted, in the emergency the patient was initially started on esmolol drip. Subsequently, due to hypotension, the drip was discontinued and the patient was given a combination of Kwesi-Synephrine and vasopressin. At the time of arrival to the ICU, the patient was on no pressors. The patient has already received a total of 4 units of packed RBC and 4 units of fresh frozen plasma. Pulses in the lower extremities are diminished at the present. The patient also has a left IJ cordis and an arterial line in place. Awake and alert and communicating. The white cell count was at 15.6 with a hemoglobin 11.8 at time of admission and a platelet count of 421. Patient also had a sodium level of 135, BUN of 23 and a creatinine of 0.4. Normal LFTs. Normal amylase and lipase. Troponins were negative. The patient has no chest pain. No significant respiratory distress at this point in time. He is known to have COPD with an FEV1 of 38 to 42% of predicted and chronic hypoxic respiratory failure. He is also known to have hypertension hyperlipidemia and previous history of cutaneous T-cell lymphoma, mycosis fungoides. On 08/14/2024, patient is being seen for a follow-up. Earlier this morning, the patient's breathing was quite labored even at rest. He was increasingly bronchospastic and wheezy. The same time, he was still awake and alert and communicating. He was on oxygen 2 L/min nasal cannula. He was given bronchodilators and she was also started on steroids. Later on, by afternoon, the patient became more obtunded and lethargic and weak. At that point, a blood gas was done that showed a pH of 7.1 with a pCO2 of 72 and pO2 of 156 and based on that, the patient was intubated and placed on the mechanical ventilator. He is currently on assist-control mode of mechanical ventilation at rate of 20, tidal volume of 350, FiO2 of 100% with a PEEP of 5. Awaiting follow-up blood gases. Postintubation chest x-ray showed COPD with bilateral hyperinflation. Orogastric tube was in high position needed to be advanced. Orotracheal tube was in satisfactory position. The patient has subtle scattered opacities bilate rally. Postintubation, the patient encountered significant hypotension. The patient was immediately given 2 L of IV fluids nasal cannula and the patient was started on norepinephrine for blood pressure support. Noted, prior to that, the patient was on no pressors and the patient was doing well emergency at rate of 100 cc an hour. He continues to be sinus tachycardia. Repeat blood work was do ne and the patient white cell count of 20.7 with a hemoglobin of 8.1 and a platelet count of 143. Hemoglobin has remained stable at 8.1. BUN 32 with a creatinine of 0.9 and sodium levels at 139 and potassium level is at 4.4. Pulses lower extremities are diminished. They are obtainable by Doppler signal. On 08/15/2024, the patient is being seen for a follow-up. As stated, the patient was intubated yesterday due to acute hypercapnic respiratory failure due to his advanced COPD. This morning, the patient remains intubated on mechanical ventilator. On propofol running at 50 mcg/kg/min. He is on assist-control mode of mechanical ventilation at rate of 28, tidal volume of 350, FiO2 of 40% and a PEEP of 5. Blood gas showed a pH of 7.25 with a pCO2 of 38 and pO2 of 173. The follow-up chest x-ray from today shows adequate positioning of the orotracheal tube. The patient also has stable multifocal acute infiltrates in the background in addition to COPD and some leukocytosis. The patient was empirically started on IV Zosyn. Also, the patient postintubation, the patient became hypotensive and developed an acute kidney injury. This morning, the patient remains on pressors and norepinephrine running at 0.29 mcg/kg/min and patient is also on physiologic dose of vasopressin at 0.03 units. Hemoglobin is at 7.6 and the patient will be given another unit of packed RBC per vascular s urgery recommendations. Urine output is in order of 30 to 50 cc an hour. The patient remains on normal saline at rate of 150 cc an hour. He is not in significant positive fluid balance of at least 5.7 L for yesterday of 4.0 L the day prior. Possible lower extremity are diminished at 0 obtainable by Doppler signals. The white cell count is 14.7, hemoglobin 9.6 and a platelet count of 185. S the CBC was obtained following the packed RBC transfusion. Sodium level is at 144, potassium is at 4.4, BUN 42 with a creatinine 1.35 and the patient has developed an acute kidney injury. The patient also has a component of Bettina E acidosis with a serum bicarb of 17. LFTs are normal. Total protein is at 4.4 with an albumin level of 2.4. Echocardiogram was completed on 08/14/2024 and the patient was found to have hyperdynamic LV, moderate amount of pericardial effusion without tamponade physiology. No significant valvular abnormalities noted. The patient also has an orogastric tube in place. There is some greenish bilious material coming of the OG tube and this has been ongoing in the order of 300 cc over the past 12 hours. No indication for an upper GI bleed. On 08/16/2024, the patient is being seen in follow-up in intensive care unit. This morning, the patient remains on propofol which is running at 25 mcg/kg/min. The patient is calm and comfortable and synchronous on mechanical ventilator. The patient remains on assist-control rate of 28, tidal volume of 350, FiO2 35% with a PEEP of 5. Blood gas showed a pH of 7.26 with a pCO2 of 38 and pO2 of 126. Chest x-ray from today shows small left-sided pleural effusion, right basilar atelectasis and there are some signs of early volume overload. Clinically, the patient is significantly in a positive fluid balance and volume overload. The patient has developed scrotal and bilateral lower and upper extremity edema. There is also some oozing of fluid from the surgical sites in the groins bilaterally. Fluid balance has been +9.2 L over the past 24 hours. Remains on NS at a rate of 75 cc an hour. Remains on pressors and the patient was on norepinephrine at 0.21 mcg/kg/min and this was reduced down to 0.1 mcg and the patient remains on vasopressin physiologic dose. Urine output is order of 50 to 75 cc an hour. Fluid balance +9 L at least over the past 24 hours. Afebrile. White cell count of 20.4 and the patient is currently on empiric antibiotic coverage with IV Zosyn. Hemoglobin is 9.8 and a platelet count of 188. BUN is 40 with a creatinine of 1.02 and serum bicarbonate 15 with an anion gap of 11. Glucose at 190. The patient remains n.p.o. as the patient was having increased output from the NG tube. The output has improved over the past 12 hours and the patient will be started or given a trial of enteral feeding for nutritional support. On 08/17/2024, the patient remains intubated on mechanical ventilator. This morning he is sedated on propofol running at 20 mcg/kg/min. He is on assist-con trol mode of mechanical ventilation at rate of 28, tidal volume of 350, FiO2 35% with a PEEP of 5. Blood gas showed pH of 7.28 with a pCO2 of 41 and pO2 124. He was started on vital HP at rate of 10 cc an hour. 2 bowel movements already. Chest x-ray from today shows development of small bilateral pleural effusions left more than right. Catheters are all in good location. The patient remains on pressors. Norepinephrine running at 0.12 mcg/kg/min. Vasopressin physiologic dose. Fluid balance is positive for 62 cc over the past 24 hours. Less bronchospastic and wheezy on examination with a peak airway pressure of 27. The white cell count is 23, hemoglobin is 9 and a platelet count of 194. The sodium level is at 148, BUN is 44 with a creatinine of 1.09. Potassium level is at 4.3. Metabolic acidosis also improving and the serum bicarb is up to 19. Remains on empiric antibiotic coverage with IV Zosyn. No other significant events overnight. Patient was seen today on 08/18/2024, remains in the ICU intubated and mechanically ventilated patient is on assist-control rate of 28 tidal volume 350 FiO2 35% and PEEP of 5 ABG showed a pO2 of 119 pCO2 47 pH of 7.29. Hence no changes were made in vent settings. Patient is requiring pressors in the form of norepinephrine at 0.03 mcg/kg/min he is also on vasopressin at 0.03 units/h. On propofol at 25 mcg/kg/min patient has received a total of 6 units of packed RBCs and 4 units of fresh frozen plasma since admission. Sputum is positive for Pseudomonas patient remains on Zosyn. Patient presented initially on 08/13 with abdominal aortic aneurysm rupture, requiring percutaneous endovascular aortic repair under ultrasound-guided access, percutaneous transluminal balloon angioplasty of bilateral common iliac arteries and percutaneous transluminal covered stent placement of bilateral common iliac arteries due to severe stenosis patient also had percutaneous closure of bilateral femoral arteries, right Perclose x 2 and left Angio-Seal. This was also done on 08/13/2024 by vascular surgery. Patient remains intubated mechanically ventilated, he is requiring propofol, not quite ready for weaning however I have asked the nurses to give the patient at least a sedation holiday today and address mental status obviously the patient is still hemodynamically unstable and not ready for full weaning. WBC count today is elevated at 28.6 hemoglobin 8.5 platelets are 187, basic metabolic profile is normal BUN is 49 creatinine 0.98. Microbiology rodriguez patient had Pseudomonas aeruginosa in the sputum. Sensitive to Zosyn, sensitive to cefepime and ciprofloxacin. Patient was reevaluated today on 08/19/2024, remains in the ICU, intubated and mechanically ventilated. Patient was given a trial of sedation interruption yesterday, could not assess mental status in spite of sedation interruption, patient would not make any purposeful movement would not follow commands, seems to be confused, and he was getting tachypneic and tachycardic, hence he had to be placed back on propofol. Today the patient remains on assist-control mode of mechanical ventilation rate of 28 tidal volume 350 FiO2 35% PEEP of 5 ABG showed a pO2 of 131 pCO2 45 pH of 7.37 patient is requiring norepinephrine at 0.02 mcg/kg/min he is on vasopressin he is on propofol at 25 mcg/kg/min. In addition the patient is receiving Zosyn he is also on D5W at 75 cc/h. Again off sedation the patient would open his eyes but did not follow any instructions or commands. Chest x-ray showed nonspecific chronic parenchymal changes and small left pleural effusion. Labs today showed leukocytosis with WBC of 35.72 sodium 148 potassium 3.9 BUN is 54 creatinine 0.72. Today I had a long discussion with his son at bedside, and discussed the different options with the son including the option of aggressive measures including tracheostomy and PEG tube placement we also discussed the option of comfort care measures as the patient has severe underlying COPD, and overall prognosis is extremely poor he will be difficult to wean, and clearly the son stated to me that his father would not have wanted tracheostomy or PEG tube placement no matter what. He seems to be inclined to consider comfort care measures in the next 2 days. Patient was changed to DNR CODE STATUS. As per his son's wishes. Objective - Vital Signs Vital signs: Vital Signs Temp 97.9 F 08/19/24 12:00 Pulse 90 08/19/24 13:00 Resp 20 08/19/24 13:00 BP 114/66 08/19/24 10:15 Pulse Ox 100 08/19/24 13:00 FiO2 30 08/19/24 12:00 Intake & Output 08/18/24 08/19/24 08/19/24 18:59 06:59 18:59 Intake Total 3547.918 4200.034 809.976 Output Total 610 555 535 Balance 619.924 450.034 274.976 Weight 59 kg 60.2 kg Intake: IV 346 256 178 Piperacillin-Tazobactam 3 200 100 100 .375 gm In Sodium Chloride 0.9% 100 ml @ 25 mls/hr IVPB Q8HR [facility] Rx# :[id number] Sodium Chloride 0.9% 1, 110 120 60 000 ml @ 10 mls/hr IV . Q24H [facility] Rx#:[id number] pressure bag 36 36 18 Intake, IV Titration 273.924 139.034 261.976 Amount Dextrose 5% in Water 1, 225 000 ml @ 75 mls/hr IV . [id number] [facility] Rx#:[id number] Norepinephrine 8 mg In 65.056 7.844 21.012 Sodium Chloride 0.9% 250 ml @ 0.03 MCG/KG/MIN 3. 152 mls/hr IV .Q24H [facility] Rx#:[id number] Vasopressin 60 unit In 148.487 68.773 Sodium Chloride 0.9% 150 ml @ 0.03 UNITS/MIN 4.59 mls/hr IV .Q24H [facility] Rx#: [id number] propofoL 1,000 mg In 60.381 62.417 15.964 Empty Bag 1 bag @ 15 MCG/ KG/MIN 4.887 mls/hr IV . [id number] [facility] Rx#:[id number] Tube Feeding 320 520 310 Other 290 90 60 Output: Urine 610 555 535 Other: Voiding Method Indwelling Catheter Indwelling Catheter Indwelling Catheter # Bowel Movements 1 ABP, PAP, CO, CI - Last Documented Arterial Blood Pressure 98/45 - Exam HEENT: Pupils are round and equally reacting to light. EOMI. No scleral icterus. No conjunctival pallor. Normocephalic, atraumatic. No pharyngeal erythema. No thyromegaly. Head: Atraumatic, normocephalic CARDIOVASCULAR: S1 and S2 present. No murmurs, rubs, or gallops. PULMONARY: Crackles at the bases with rhonchi. Symmetrical chest expansion. ABDOMEN: Nontender nonboggy no rebound no guarding MUSCULOSKELETAL: No deformities, EXTREMITIES: No cyanosis, clubbing, or pedal edema. Patient does have significant scrotal swelling and upper extremities edema. NEUROLOGICAL: Could not assess, patient is sedated SKIN: No rashes. - Labs CBC & Chem 7: 08/19/24 03:50 08/19/24 03:50 Labs: Abnormal Lab Results - Last 24 Hours (Table) 08/18/24 08/18/24 08/19/24 Range/Units 17:46 23:11 03:50 WBC 35.72 H (4.50-10.00) 10*3/uL RBC 2.97 L (4.40-5.60) 10*6/uL Hgb 8.5 L (13.0-17.0) g/dL Hct 26.2 L (39.6-50.0) % ABG pO2 (83-108) mmHg ABG HCO3 (21-25) mmol/L ABG Total CO2 (19-24) mmol/L ABG O2 Saturation (94-97) % Hemoglobin (13.0-17.5) gm/dL Sodium (137-145) mmol/L Chloride (98-107) mmol/L BUN (9-20) mg/dL Glucose (74-99) mg/dL POC Glucose (mg/dL) 215 H 166 H (70-110) mg/dL 08/19/24 08/19/24 08/19/24 Range/Units 03:50 05:35 05:50 WBC (4.50-10.00) 10*3/uL RBC (4.40-5.60) 10*6/uL Hgb (13.0-17.0) g/dL Hct (39.6-50.0) % ABG pO2 131 H (83-108) mmHg ABG HCO3 26 H (21-25) mmol/L ABG Total CO2 27 H (19-24) mmol/L ABG O2 Saturation 99.4 H (94-97) % Hemoglobin 8.6 L (13.0-17.5) gm/dL Sodium 148 H (137-145) mmol/L Chloride 118 H (98-107) mmol/L BUN 54 H (9-20) mg/dL Glucose 198 H (74-99) mg/dL POC Glucose (mg/dL) 202 H (70-110) mg/dL 08/19/24 Range/Units 12:32 WBC (4.50-10.00) 10*3/uL RBC (4.40-5.60) 10*6/uL Hgb (13.0-17.0) g/dL Hct (39.6-50.0) % ABG pO2 (83-108) mmHg ABG HCO3 (21-25) mmol/L ABG Total CO2 (19-24) mmol/L ABG O2 Saturation (94-97) % Hemoglobin (13.0-17.5) gm/dL Sodium (137-145) mmol/L Chloride (98-107) mmol/L BUN (9-20) mg/dL Glucose (74-99) mg/dL POC Glucose (mg/dL) 208 H (70-110) mg/dL Microbiology - Last 24 Hours (Table) 08/16/24 13:14 Blood Culture - Preliminary Blood Assessment and Plan Assessment: Impression: Abdominal aortic aneurysm rupture, status post repair, postoperative day #6 the patient underwent emergent endovascular aortic repair with a AFX 2 device. The patient also underwent percutaneous balloon angioplasty of bilateral common iliac arteries and stent placement in the bilateral common iliacs for severe vascular disease. Hemorrhagic shock secondary to above. Required a total of 6 units of packed RBCs and 4 units of fresh frozen plasma Acute hypercapnic respiratory failure with secondary diminished level of consciousness secondary COPD exacerbation. Acute blood loss anemia, awaiting follow-up hemoglobin. Volume overload with significant positive fluid balance and increasing edema in upper and lower extremities and scrotal edema. Acute kidney injury, likely secondary to hypotension/postsurgical ATN, recovered and the patient renal function has normalized Non-anion gap metabolic acidosis, improving and serum bicarb is up to 19 Mild hyponatremia, hypochloremic COPD, severe with an FEV1 of 38 to 42% of predicted Chronic hypoxic respiratory failure, secondary to COPD History of cutaneous T-cell lymphoma/mycosis fungoides Hypertension Hyperlipidemia BPH Chronic smoker Recommendation: Continue ventilatory support Continue hemodynamic support off vasopressin but remains on norepinephrine at 0.02 mcg/kg/min Continue nutritional support/enteral feeding Continue Zosyn/antibiotic for pseudomonal coverage in the sputum Continue to monitor I's and O's Continued GI and DVT prophylaxis Continue bronchodilators Continue IV Solu-Medrol Given yesterday a trial of sedation interruption but did not seem to follow any commands patient would open eyes only Today I discussed his condition with the son and the son seems to be inclined to consider comfort care measures in the next 24 to 48 hours. Definitely no tracheostomy and no PEG tube placement as per son's wishes. Change CODE STATUS to DNR Patient remains critically ill with very poor prognosis Will continue to follow Critical care time is 34 minutes Time with Patient: Greater than 30
[2024-08-19 17:52] LABS: Glucose,Whole Blood 168 mg/dL (70-110)
[2024-08-19 21:02] VITALS: BP 94/55
[2024-08-20 00:01] LABS: Glucose,Whole Blood 241 mg/dL (70-110)
[2024-08-20 05:19] LABS: ABG Base Excess 0.9 mmol/L; ABG HCO3 27 mmol/L (21-25); ABG Oxygen Saturation 98.6 % (94-97); ABG PCO2 50 mmHg (35-45); ABG PH 7.34 (7.35-7.45); ABG PO2 104 mmHg (83-108); ABG TCO2 29 mmol/L (19-24); Allen Test Performed? Yes
[2024-08-20 05:19] LABS: Glucose,Whole Blood 286 mg/dL (70-110)
[2024-08-20 05:42] LABS: HCT 27.5 % (39.6-50.0); HGB 8.9 g/dL (13.0-17.0); MCH 28.8 pg (27.0-32.0); MCHC 32.4 g/dL (32.0-37.0); Mean Platelet Volume 11.3 fL (9.5-12.2); Platelet Count 175 10*3/uL (140-440); RBC 3.09 10*6/uL (4.40-5.60); RDW 19.4 % (11.5-14.5)
[2024-08-20 05:56] LABS: African American GFR (CKD) >90 (>60 ml/min/1.73 sqM); Anion Gap 3 mmol/L; Blood Urea Nitrogen 51 mg/dL (9-20); Calcium 9.2 mg/dL (8.4-10.2); Carbon Dioxide 27 mmol/L (22-30); Chloride 116 mmol/L (98-107); Glucose 269 mg/dL (74-99); Non-African American GFR(CKD) >90 (>60 ml/min/1.73 sqM); Sodium 146 mmol/L (137-145)
--- NOTE | 2024-08-20 06:38 | XR ---
EXAMINATION TYPE: XR chest 1V portable DATE OF EXAM: 08/20/2024 CLINICAL INDICATION: Male, 78 years old with history of mechanical ventilation, progress study. TECHNIQUE: Single AP portable semiupright view of the chest is obtained. COMPARISON: Chest x-ray from one day earlier and older studies. FINDINGS: Stable endotracheal and orogastric tubes. Background chronic parenchymal changes bilaterally. Multifocal increased opacities bilaterally are re demonstrated. Cardiac silhouette size is stable and within normal limits with atherosclerotic thoraci c aorta redemonstrated. Osseous structures are intact. IMPRESSION: Subtle bilateral multifocal acute infiltrates and/or edema on background chronic parenchy mal fibrosis and small left pleural effusion. No significant change from one day earlier. [facility], , 08/20/2024 6:35 AM
[2024-08-20 08:45] LABS: Neutrophils % (M) 96 %
[2024-08-20 08:46] LABS: Lymphocytes # (M) 0.92 k/uL (1.0-4.8); Monocytes # (M) 0.61 k/uL (0-1.0); Neutrophils # (M) 29.36 k/uL (1.3-7.7); Nucleated Red Blood Cells 1 /100 WBC (0-0); Total Cells Counted 200; WBC 30.58 10*3/uL (4.50-10.00)
--- NOTE | 2024-08-20 09:04 | P.PN ---
Subjective 78-year-old male patient with past medical tree significant for COPD, aortic aneurysm who presented to ER with a complaint of acute onset abdominal pain and back pain. Patient was afebrile in the ED, was tachycardic and hypotensive, required epinephrine drip. Was saturating 98% on 2 L. Patient denied any fever, chills, sore throat, productive cough, shortness of breath, chest pain, palpitations, dysuria urgency frequency weakness or numbness to extremities, diarrhea or constipation. WBCs were 15.6, hemoglobin 11.8, platelet 87. INR 1.1. Sodium 135 potassium 4.0 chloride 101 CO2 24 BUN 23 creatinine 0.45. Liver profile and lipase was u nremarkable. Patient was afebrile tachycardic and hypotensive, required epinephrine drip. Ultrasound showed probable ruptured AAA with pulsatile mass. CT angio showed a large 11.8 cm aneurysm with stranding concerning for rupture. Patient was taken to [facility] for emergent endovascular aortic repair. 08/14--patient was seen and examined today. Son at bedside. Patient feeling better. Afebrile, tachycardic with heart rate in the low 100s, tachypneic with respiratory rate 20, blood pressure is low 107/51. Patient denied any nausea vomiting abdominal pain, dizziness. Currently on 2 L oxygen. Was tachycardic overnight. No flatus. So far 5 units packed RBCs and 4 units of FFP transfusion. Hemoglobin currently stable. Vascular surgery following. ICU following. WBCs 20.1, hemoglobin 9.2, platelet 139. BUN 32, creatinine 0.96. 08/15--patient was seen and examined today. Patient had acute hypercapnic respiratory failure due to his advanced COPD yesterday, ICU was consulted and patient got intubated. Patient remains intubated on mechanical ventilation, on propofol, 40% FiO2 and PEEP of 5. Blood gases showed pH 7.25 with pCO2 38 and pO2 173. Repeat chest x-ray today showed adequate positioning of orotracheal tube. Chest x-ray showed multifocal infiltrates in addition to COPD. Patient also on vasopressorsLevophed and vasopressin. Patient's hemoglobin was 7.6, received another unit of packed RBCs today, total 6 units of packed RBCs so far. On IV fluids due to low blood pressure and decreased urine output. Echocardiogram yesterday showed hyperdynamic LV, moderate amount of pericardial effusion without tamponade. 08/16. Patient seen and examined. Blood work done today showed WBC 20.4, hemoglobin 9.8, platelet count 188, sodium 141, potassium 4.4, BUN 40, current 1.02, glucose 150 magnesium 2.4. Patient continues to be intubated, currently on FiO2 of 35%. Currently on vasopressin, Levophed. Continues to be on propofol. Son at the bedside, updated about patient's progress 08/17. Patient seen and examined.,Labs reviewed showed WBC 23.8, hemoglobin 9, platelet count 194, sodium 148, potassium 4.3 BUN 44, creatinine 1.09. Currently on propofol. Continues to be on vasopressors in the form of vasopressin and norepinephrine. 08/18. Patient seen and examined. Patient continues to be on mechanical ventilation. Surgery have been consulted for possible tracheostomy. Currently on tube feeding. 08/19 Patient remains in the ICU He remains on the vent Levophed dose is lowered to 0.02 today Consider sedation holiday. Patient opens eye however he does not follow command He was placed on D5W at 75 mL/h for hypernatremia as sodium today is 148. Will discuss with the family about plan 08/20 Patient remains intubated and sedated in the ICU He still on IV Solu-Medrol and Zosyn and D5W at 75 WBC is 30,000 while he is on steroids, hemoglobin 8.9 sodium slightly improving down to 146 but creatinine normal. pH remains low at 7.36 and pCO2 elevated at 50. Sputum cultures growing Pseudomonas patient already covered with Zosyn with chest x-ray showing bilateral infiltrate. Patient was made DNR Family meeting will be held tomorrow and family considering comfort care measures. Staff Objective - Vital Signs Vital signs: Vital Signs Temp 97.9 F 08/20/24 08:00 Pulse 84 08/20/24 08:42 Resp 28 H 08/20/24 08:00 BP 94/55 08/19/24 21:00 Pulse Ox 97 08/20/24 08:00 FiO2 30 08/20/24 08:27 Intake & Output 08/19/24 08/20/24 08/20/24 18:59 06:59 18:59 Intake Total 7004.662 1319.844 143 Output Total 855 1075 300 Balance 1075.907 984.844 -157 Weight 62.8 kg Intake: IV 356 169 13 Piperacillin-Tazobactam 3 200 .375 gm In Sodium Chloride 0.9% 100 ml @ 25 mls/hr IVPB Q8HR [facility] Rx# :[id number] Sodium Chloride 0.9% 1, 120 130 10 000 ml @ 10 mls/hr IV . Q24H [facility] Rx#:[id number] pressure bag 36 39 3 Intake, IV Titration 099.747 5314.844 75 Amount Dextrose 5% in Water 1, 675 975 75 000 ml @ 75 mls/hr IV . [id number] [facility] Rx#:[id number] Norepinephrine 8 mg In 70.484 114.616 Sodium Chloride 0.9% 250 ml @ 0.03 MCG/KG/MIN 3. 152 mls/hr IV .Q24H [facility] Rx#:[id number] propofoL 1,000 mg In 69.423 86.228 Empty Bag 1 bag @ 15 MCG/ KG/MIN 4.887 mls/hr IV . [id number] [facility] Rx#:[id number] Tube Feeding 640 715 55 Other 120 Output: Urine 855 1075 300 Other: Voiding Method Indwelling Catheter Indwelling Catheter ABP, PAP, CO, CI - Last Documented Arterial Blood Pressure 131/54 - Exam -GENERAL: The patient is intubated and sedated HEENT: Pupils are round and equally reacting to light. EOMI. No scleral icterus. No conjunctival pallor. Normocephalic, atraumatic. No pharyngeal erythema. No thyromegaly. CARDIOVASCULAR: S1 and S2 present. No murmurs, rubs, or gallops. PULMONARY: Chest is clear to auscultation, no wheezing , no crackles. ABDOMEN: Soft, nontender, nondistended, normoactive bowel sounds. No palpable organomegaly. MUSCULOSKELETAL: No joint swelling or deformity. EXTREMITIES: No cyanosis, clubbing, or pedal edema. NEUROLOGICAL: Gross neurological examination did not reveal any focal deficits. SKIN: No rashes. no petechiae. - Labs CBC & Chem 7: 08/20/24 05:18 08/20/24 05:18 Labs: Abnormal Lab Results - Last 24 Hours (Table) 08/19/24 08/19/24 08/19/24 Range/Units 12:32 17:50 23:58 WBC (4.50-10.00) 10*3/uL RBC (4.40-5.60) 10*6/uL Hgb (13.0-17.0) g/dL Hct (39.6-50.0) % Immature Gran # (0.00-0.04) 10*3/uL Neutrophils # (Manual) (1.3-7.7) k/uL Lymphocytes # (Manual) (1.0-4.8) k/uL Nucleated RBCs (0-0) /100 WBC ABG pH (7.35-7.45) ABG pCO2 (35-45) mmHg ABG HCO3 (21-25) mmol/L ABG Total CO2 (19-24) mmol/L ABG O2 Saturation (94-97) % Hemoglobin (13.0-17.5) gm/dL Sodium (137-145) mmol/L Chloride (98-107) mmol/L BUN (9-20) mg/dL Creatinine (0.66-1.25) mg/dL Glucose (74-99) mg/dL POC Glucose (mg/dL) 208 H 168 H 241 H (70-110) mg/dL 08/20/24 08/20/24 08/20/24 Range/Units 05:15 05:16 05:18 WBC 30.58 H (4.50-10.00) 10*3/uL RBC 3.09 L (4.40-5.60) 10*6/uL Hgb 8.9 L (13.0-17.0) g/dL Hct 27.5 L (39.6-50.0) % Immature Gran # 1.86 H (0.00-0.04) 10*3/uL Neutrophils # (Manual) 29.36 H (1.3-7.7) k/uL Lymphocytes # (Manual) 0.92 L (1.0-4.8) k/uL Nucleated RBCs 1 H (0-0) /100 WBC ABG pH 7.34 L (7.35-7.45) ABG pCO2 50 H (35-45) mmHg ABG HCO3 27 H (21-25) mmol/L ABG Total CO2 29 H (19-24) mmol/L ABG O2 Saturation 98.6 H (94-97) % Hemoglobin 8.9 L (13.0-17.5) gm/dL Sodium (137-145) mmol/L Chloride (98-107) mmol/L BUN (9-20) mg/dL Creatinine (0.66-1.25) mg/dL Glucose (74-99) mg/dL POC Glucose (mg/dL) 286 H (70-110) mg/dL 08/20/24 Range/Units 05:18 WBC (4.50-10.00) 10*3/uL RBC (4.40-5.60) 10*6/uL Hgb (13.0-17.0) g/dL Hct (39.6-50.0) % Immature Gran # (0.00-0.04) 10*3/uL Neutrophils # (Manual) (1.3-7.7) k/uL Lymphocytes # (Manual) (1.0-4.8) k/uL Nucleated RBCs (0-0) /100 WBC ABG pH (7.35-7.45) ABG pCO2 (35-45) mmHg ABG HCO3 (21-25) mmol/L ABG Total CO2 (19-24) mmol/L ABG O2 Saturation (94-97) % Hemoglobin (13.0-17.5) gm/dL Sodium 146 H (137-145) mmol/L Chloride 116 H (98-107) mmol/L BUN 51 H (9-20) mg/dL Creatinine 0.64 L (0.66-1.25) mg/dL Glucose 269 H (74-99) mg/dL POC Glucose (mg/dL) (70-110) mg/dL Microbiology - Last 24 Hours (Table) 08/16/24 13:14 Blood Culture - Preliminary Blood Assessment and Plan Assessment: Ruptured aortic aneurysm: Hemorrhagic shock: Acute blood loss anemia: Retroperitoneal hematoma Acute hypoxic hypercapnic respiratory failure requiring intubation mechanical ventilation: Advanced COPD: Acute COPD exacerbation: Pneumonia Hypertension BPH Plan: Continue with IV Solu-Medrol 60 mg Continue with Zosyn Continue with D5W at 75 and monitor sodium level Pulmonary/clinic care team Hematology/oncology team GI and DVT prophylaxis Prognosis is guarded
[2024-08-20 11:36] LABS: Glucose,Whole Blood 280 mg/dL (70-110)
[2024-08-20] MEDS: DEXTROSE 5%-0.45% NACL 1,000 ML IV SCH (12:19)
--- NOTE | 2024-08-20 14:58 | P.PN ---
Subjective Progress Note Date: 08/20/24 Principal diagnosis: Acute abdominal aortic aneurysm rupture and hemorrhagic shock This is a 78-year-old male patient who presented to the emergency department with acute abdominal pain. The patient underwent a CTA of the aorta with runoff and the patient was found to have an i infrarenal abdominal aortic aneurysm measuring 11.4 x 11.8 cm in size and prominent concentric atherosclerotic plaque and adjacent stranding. This was consistent with rupture with a large hematoma in the retroperitoneal space. Emergent vascular consultation was obtained and the patient was taken to the Reference Archivist and the patient underwent a endovascular aortic repair with AFX II device and the patient also underwent percutaneous transluminal balloon angioplasty of bilateral common iliac arteries, percutaneous transluminal stent placement in the bilateral common iliac arteries due to severe stenosis and percutaneous closure of the bilateral femoral arteries with Perclose x 2 and left Angio-Seal. Postop, the patient was brought into the intensive care unit. At the time of his arrival, the patient was on 6 L of oxygen simple mask. His cardiac rhythm is sinus although the patient was still tachycardic and borderline hypotensive with a BP of 84/50. Noted, in the emergency the patient was initially started on esmolol drip. Subsequently, due to hypotension, the drip was discontinued and the patient was given a combination of Kwesi-Synephrine and vasopressin. At the time of arrival to the ICU, the patient was on no pressors. The patient has already received a total of 4 units of packed RBC and 4 units of fresh frozen plasma. Pulses in the lower extremities are diminished at the present. The patient also has a left IJ cordis and an arterial line in place. Awake and alert and communicating. The white cell count was at 15.6 with a hemoglobin 11.8 at time of admission and a platelet count of 421. Patient also had a sodium level of 135, BUN of 23 and a creatinine of 0.4. Normal LFTs. Normal amylase and lipase. Troponins were negative. The patient has no chest pain. No significant respiratory distress at this point in time. He is known to have COPD with an FEV1 of 38 to 42% of predicted and chronic hypoxic respiratory failure. He is also known to have hypertension hyperlipidemia and previous history of cutaneous T-cell lymphoma, mycosis fungoides. On 08/14/2024, patient is being seen for a follow-up. Earlier this morning, the patient's breathing was quite labored even at rest. He was increasingly bronchospastic and wheezy. The same time, he was still awake and alert and communicating. He was on oxygen 2 L/min nasal cannula. He was given bronchodilators and she was also started on steroids. Later on, by afternoon, the patient became more obtunded and lethargic and weak. At that point, a blood gas was done that showed a pH of 7.1 with a pCO2 of 72 and pO2 of 156 and based on that, the patient was intubated and placed on the mechanical ventilator. He is currently on assist-control mode of mechanical ventilation at rate of 20, tidal volume of 350, FiO2 of 100% with a PEEP of 5. Awaiting follow-up blood gases. Postintubation chest x-ray showed COPD with bilateral hyperinflation. Orogastric tube was in high position needed to be advanced. Orotracheal tube was in satisfactory position. The patient has subtle scattered opacities bilate rally. Postintubation, the patient encountered significant hypotension. The patient was immediately given 2 L of IV fluids nasal cannula and the patient was started on norepinephrine for blood pressure support. Noted, prior to that, the patient was on no pressors and the patient was doing well emergency at rate of 100 cc an hour. He continues to be sinus tachycardia. Repeat blood work was do ne and the patient white cell count of 20.7 with a hemoglobin of 8.1 and a platelet count of 143. Hemoglobin has remained stable at 8.1. BUN 32 with a creatinine of 0.9 and sodium levels at 139 and potassium level is at 4.4. Pulses lower extremities are diminished. They are obtainable by Doppler signal. On 08/15/2024, the patient is being seen for a follow-up. As stated, the patient was intubated yesterday due to acute hypercapnic respiratory failure due to his advanced COPD. This morning, the patient remains intubated on mechanical ventilator. On propofol running at 50 mcg/kg/min. He is on assist-control mode of mechanical ventilation at rate of 28, tidal volume of 350, FiO2 of 40% and a PEEP of 5. Blood gas showed a pH of 7.25 with a pCO2 of 38 and pO2 of 173. The follow-up chest x-ray from today shows adequate positioning of the orotracheal tube. The patient also has stable multifocal acute infiltrates in the background in addition to COPD and some leukocytosis. The patient was empirically started on IV Zosyn. Also, the patient postintubation, the patient became hypotensive and developed an acute kidney injury. This morning, the patient remains on pressors and norepinephrine running at 0.29 mcg/kg/min and patient is also on physiologic dose of vasopressin at 0.03 units. Hemoglobin is at 7.6 and the patient will be given another unit of packed RBC per vascular s urgery recommendations. Urine output is in order of 30 to 50 cc an hour. The patient remains on normal saline at rate of 150 cc an hour. He is not in significant positive fluid balance of at least 5.7 L for yesterday of 4.0 L the day prior. Possible lower extremity are diminished at 0 obtainable by Doppler signals. The white cell count is 14.7, hemoglobin 9.6 and a platelet count of 185. S the CBC was obtained following the packed RBC transfusion. Sodium level is at 144, potassium is at 4.4, BUN 42 with a creatinine 1.35 and the patient has developed an acute kidney injury. The patient also has a component of Bettina E acidosis with a serum bicarb of 17. LFTs are normal. Total protein is at 4.4 with an albumin level of 2.4. Echocardiogram was completed on 08/14/2024 and the patient was found to have hyperdynamic LV, moderate amount of pericardial effusion without tamponade physiology. No significant valvular abnormalities noted. The patient also has an orogastric tube in place. There is some greenish bilious material coming of the OG tube and this has been ongoing in the order of 300 cc over the past 12 hours. No indication for an upper GI bleed. On 08/16/2024, the patient is being seen in follow-up in intensive care unit. This morning, the patient remains on propofol which is running at 25 mcg/kg/min. The patient is calm and comfortable and synchronous on mechanical ventilator. The patient remains on assist-control rate of 28, tidal volume of 350, FiO2 35% with a PEEP of 5. Blood gas showed a pH of 7.26 with a pCO2 of 38 and pO2 of 126. Chest x-ray from today shows small left-sided pleural effusion, right basilar atelectasis and there are some signs of early volume overload. Clinically, the patient is significantly in a positive fluid balance and volume overload. The patient has developed scrotal and bilateral lower and upper extremity edema. There is also some oozing of fluid from the surgical sites in the groins bilaterally. Fluid balance has been +9.2 L over the past 24 hours. Remains on NS at a rate of 75 cc an hour. Remains on pressors and the patient was on norepinephrine at 0.21 mcg/kg/min and this was reduced down to 0.1 mcg and the patient remains on vasopressin physiologic dose. Urine output is order of 50 to 75 cc an hour. Fluid balance +9 L at least over the past 24 hours. Afebrile. White cell count of 20.4 and the patient is currently on empiric antibiotic coverage with IV Zosyn. Hemoglobin is 9.8 and a platelet count of 188. BUN is 40 with a creatinine of 1.02 and serum bicarbonate 15 with an anion gap of 11. Glucose at 190. The patient remains n.p.o. as the patient was having increased output from the NG tube. The output has improved over the past 12 hours and the patient will be started or given a trial of enteral feeding for nutritional support. On 08/17/2024, the patient remains intubated on mechanical ventilator. This morning he is sedated on propofol running at 20 mcg/kg/min. He is on assist-con trol mode of mechanical ventilation at rate of 28, tidal volume of 350, FiO2 35% with a PEEP of 5. Blood gas showed pH of 7.28 with a pCO2 of 41 and pO2 124. He was started on vital HP at rate of 10 cc an hour. 2 bowel movements already. Chest x-ray from today shows development of small bilateral pleural effusions left more than right. Catheters are all in good location. The patient remains on pressors. Norepinephrine running at 0.12 mcg/kg/min. Vasopressin physiologic dose. Fluid balance is positive for 62 cc over the past 24 hours. Less bronchospastic and wheezy on examination with a peak airway pressure of 27. The white cell count is 23, hemoglobin is 9 and a platelet count of 194. The sodium level is at 148, BUN is 44 with a creatinine of 1.09. Potassium level is at 4.3. Metabolic acidosis also improving and the serum bicarb is up to 19. Remains on empiric antibiotic coverage with IV Zosyn. No other significant events overnight. Patient was seen today on 08/18/2024, remains in the ICU intubated and mechanically ventilated patient is on assist-control rate of 28 tidal volume 350 FiO2 35% and PEEP of 5 ABG showed a pO2 of 119 pCO2 47 pH of 7.29. Hence no changes were made in vent settings. Patient is requiring pressors in the form of norepinephrine at 0.03 mcg/kg/min he is also on vasopressin at 0.03 units/h. On propofol at 25 mcg/kg/min patient has received a total of 6 units of packed RBCs and 4 units of fresh frozen plasma since admission. Sputum is positive for Pseudomonas patient remains on Zosyn. Patient presented initially on 08/13 with abdominal aortic aneurysm rupture, requiring percutaneous endovascular aortic repair under ultrasound-guided access, percutaneous transluminal balloon angioplasty of bilateral common iliac arteries and percutaneous transluminal covered stent placement of bilateral common iliac arteries due to severe stenosis patient also had percutaneous closure of bilateral femoral arteries, right Perclose x 2 and left Angio-Seal. This was also done on 08/13/2024 by vascular surgery. Patient remains intubated mechanically ventilated, he is requiring propofol, not quite ready for weaning however I have asked the nurses to give the patient at least a sedation holiday today and address mental status obviously the patient is still hemodynamically unstable and not ready for full weaning. WBC count today is elevated at 28.6 hemoglobin 8.5 platelets are 187, basic metabolic profile is normal BUN is 49 creatinine 0.98. Microbiology rodriguez patient had Pseudomonas aeruginosa in the sputum. Sensitive to Zosyn, sensitive to cefepime and ciprofloxacin. Patient was reevaluated today on 08/19/2024, remains in the ICU, intubated and mechanically ventilated. Patient was given a trial of sedation interruption yesterday, could not assess mental status in spite of sedation interruption, patient would not make any purposeful movement would not follow commands, seems to be confused, and he was getting tachypneic and tachycardic, hence he had to be placed back on propofol. Today the patient remains on assist-control mode of mechanical ventilation rate of 28 tidal volume 350 FiO2 35% PEEP of 5 ABG showed a pO2 of 131 pCO2 45 pH of 7.37 patient is requiring norepinephrine at 0.02 mcg/kg/min he is on vasopressin he is on propofol at 25 mcg/kg/min. In addition the patient is receiving Zosyn he is also on D5W at 75 cc/h. Again off sedation the patient would open his eyes but did not follow any instructions or commands. Chest x-ray showed nonspecific chronic parenchymal changes and small left pleural effusion. Labs today showed leukocytosis with WBC of 35.72 sodium 148 potassium 3.9 BUN is 54 creatinine 0.72. Today I had a long discussion with his son at bedside, and discussed the different options with the son including the option of aggressive measures including tracheostomy and PEG tube placement we also discussed the option of comfort care measures as the patient has severe underlying COPD, and overall prognosis is extremely poor he will be difficult to wean, and clearly the son stated to me that his father would not have wanted tracheostomy or PEG tube placement no matter what. He seems to be inclined to consider comfort care measures in the next 2 days. Patient was changed to DNR CODE STATUS. As per his son's wishes. Patient was seen today for, remains in the ICU, intubated and mechanically ventilated, on assist-control rate of 28 tidal volume 350 which I increased to 400 FiO2 30% PEEP of 5 ABG showed a pO2 of 104 pCO2 50 pH of 7.34. Remains on multiple drips including propofol 20 mcg/kg/min norepinephrine 0.9 mg/kg/min D5W which I changed to D5 4 5 at 75 cc/h remains on Zosyn. Chest x-ray is basically about the same, no changes noted. Labs were all reviewed, continues to have worsening leukocytosis with WBC count of 30.58 hemoglobin 8.9 basic metabolic profile is relatively normal sodium is down to 146 BUN is 51 creatinine 0.64. Patient is sedated, on propofol, however he will have a sedation interruption today and again assessment of mental status if possible. Objective - Vital Signs Vital signs: Vital Signs Temp 97.4 F L 08/20/24 12:00 Pulse 78 08/20/24 14:00 Resp 28 H 08/20/24 14:00 BP 94/55 08/20/24 11:30 Pulse Ox 97 08/20/24 14:00 FiO2 30 08/20/24 14:00 Intake & Output 08/19/24 08/20/24 08/20/24 18:59 06:59 18:59 Intake Total 6557.411 1735.844 1313.051 Output Total 855 1075 810 Balance 1075.907 984.844 503.051 Weight 62.8 kg Intake: IV 356 169 416 Dextrose 5%-0.45% NaCl 1, 225 000 ml @ 75 mls/hr IV . [id number] [facility] Rx#:[id number] Piperacillin-Tazobactam 3 200 100 .375 gm In Sodium Chloride 0.9% 100 ml @ 25 mls/hr IVPB Q8HR [facility] Rx# :[id number] Sodium Chloride 0.9% 1, 120 130 70 000 ml @ 10 mls/hr IV . Q24H [facility] Rx#:[id number] pressure bag 36 39 21 Intake, IV Titration 871.776 1872.844 622.051 Amount Dextrose 5% in Water 1, 675 975 300 000 ml @ 75 mls/hr IV . [id number] [facility] Rx#:[id number] Norepinephrine 8 mg In 70.484 114.616 279.452 Sodium Chloride 0.9% 250 ml @ 0.03 MCG/KG/MIN 3. 152 mls/hr IV .Q24H [facility] Rx#:[id number] propofoL 1,000 mg In 69.423 86.228 42.599 Empty Bag 1 bag @ 15 MCG/ KG/MIN 4.887 mls/hr IV . [id number] [facility] Rx#:[id number] Tube Feeding 640 715 275 Other 120 Output: Urine 855 1075 810 Other: Voiding Method Indwelling Catheter Indwelling Catheter Indwelling Catheter ABP, PAP, CO, CI - Last Documented Arterial Blood Pressure 88/41 - Exam HEENT: Pupils are round and equally reacting to light. EOMI. No scleral icterus. No conjunctival pallor. Normocephalic, atraumatic. No pharyngeal erythema. No thyromegaly. Head: Atraumatic, normocephalic CARDIOVASCULAR: S1 and S2 present. No murmurs, rubs, or gallops. PULMONARY: Crackles at the bases with rhonchi. Symmetrical chest expansion. ABDOMEN: Nontender nonboggy no rebound no guarding MUSCULOSKELETAL: No deformities, EXTREMITIES: No cyanosis, clubbing, or pedal edema. Patient does have significant scrotal swelling and upper extremities edema. NEUROLOGICAL: Could not assess, patient is sedated SKIN: No rashes. - Labs CBC & Chem 7: 08/20/24 05:18 08/20/24 05:18 Labs: Abnormal Lab Results - Last 24 Hours (Table) 08/19/24 08/19/24 08/20/24 Range/Units 17:50 23:58 05:15 WBC (4.50-10.00) 10*3/uL RBC (4.40-5.60) 10*6/uL Hgb (13.0-17.0) g/dL Hct (39.6-50.0) % Immature Gran # (0.00-0.04) 10*3/uL Neutrophils # (Manual) (1.3-7.7) k/uL Lymphocytes # (Manual) (1.0-4.8) k/uL Nucleated RBCs (0-0) /100 WBC ABG pH 7.34 L (7.35-7.45) ABG pCO2 50 H (35-45) mmHg ABG HCO3 27 H (21-25) mmol/L ABG Total CO2 29 H (19-24) mmol/L ABG O2 Saturation 98.6 H (94-97) % Hemoglobin 8.9 L (13.0-17.5) gm/dL Sodium (137-145) mmol/L Chloride (98-107) mmol/L BUN (9-20) mg/dL Creatinine (0.66-1.25) mg/dL Glucose (74-99) mg/dL POC Glucose (mg/dL) 168 H 241 H (70-110) mg/dL 08/20/24 08/20/24 08/20/24 Range/Units 05:16 05:18 05:18 WBC 30.58 H (4.50-10.00) 10*3/uL RBC 3.09 L (4.40-5.60) 10*6/uL Hgb 8.9 L (13.0-17.0) g/dL Hct 27.5 L (39.6-50.0) % Immature Gran # 1.86 H (0.00-0.04) 10*3/uL Neutrophils # (Manual) 29.36 H (1.3-7.7) k/uL Lymphocytes # (Manual) 0.92 L (1.0-4.8) k/uL Nucleated RBCs 1 H (0-0) /100 WBC ABG pH (7.35-7.45) ABG pCO2 (35-45) mmHg ABG HCO3 (21-25) mmol/L ABG Total CO2 (19-24) mmol/L ABG O2 Saturation (94-97) % Hemoglobin (13.0-17.5) gm/dL Sodium 146 H (137-145) mmol/L Chloride 116 H (98-107) mmol/L BUN 51 H (9-20) mg/dL Creatinine 0.64 L (0.66-1.25) mg/dL Glucose 269 H (74-99) mg/dL POC Glucose (mg/dL) 286 H (70-110) mg/dL 08/20/24 Range/Units 11:35 WBC (4.50-10.00) 10*3/uL RBC (4.40-5.60) 10*6/uL Hgb (13.0-17.0) g/dL Hct (39.6-50.0) % Immature Gran # (0.00-0.04) 10*3/uL Neutrophils # (Manual) (1.3-7.7) k/uL Lymphocytes # (Manual) (1.0-4.8) k/uL Nucleated RBCs (0-0) /100 WBC ABG pH (7.35-7.45) ABG pCO2 (35-45) mmHg ABG HCO3 (21-25) mmol/L ABG Total CO2 (19-24) mmol/L ABG O2 Saturation (94-97) % Hemoglobin (13.0-17.5) gm/dL Sodium (137-145) mmol/L Chloride (98-107) mmol/L BUN (9-20) mg/dL Creatinine (0.66-1.25) mg/dL Glucose (74-99) mg/dL POC Glucose (mg/dL) 280 H (70-110) mg/dL Microbiology - Last 24 Hours (Table) 08/16/24 13:14 Blood Culture - Preliminary Blood Assessment and Plan Assessment: Impression: Abdominal aortic aneurysm rupture, status post repair, postoperative day #7 the patient underwent emergent endovascular aortic repair with a AFX 2 device. The patient also underwent percutaneous balloon angioplasty of bilateral common iliac arteries and stent placement in the bilateral common iliacs for severe vascular disease. Hemorrhagic shock secondary to above. Required a total of 6 units of packed RBCs and 4 units of fresh frozen plasma Acute hypercapnic respiratory failure with secondary diminished level of consciousness secondary COPD exacerbation. Acute blood loss anemia, awaiting follow-up hemoglobin. Volume overload with significant positive fluid balance and increasing edema in upper and lower extremities and scrotal edema. Acute kidney injury, likely secondary to hypotension/postsurgical ATN, recovered and the patient renal function has normalized Non-anion gap metabolic acidosis, improving and serum bicarb is up to 19 Mild hyponatremia, hypochloremic COPD, severe with an FEV1 of 38 to 42% of predicted Chronic hypoxic respiratory failure, secondary to COPD History of cutaneous T-cell lymphoma/mycosis fungoides Hypertension Hyperlipidemia BPH Chronic smoker Recommendation: Continue ventilatory support Continue hemodynamic support/norepinephrine Continue nutritional support/enteral feeding Continue Zosyn/antibiotic for pseudomonal coverage in the sputum Continue to monitor I's and O's Continued GI and DVT prophylaxis Continue bronchodilators Continue IV Solu-Medrol Try again a trial of sedation interruption today/sedation holiday. Yesterday I had a full discussion regarding the patient with his son, and CODE STATUS was changed to DNR, may go to comfort care measures in the next 24 hours. Change CODE STATUS to DNR Patient remains critically ill with very poor prognosis Will continue to follow Critical care time is 33 minutes Time with Patient: Greater than 30
[2024-08-20 17:42] LABS: Glucose,Whole Blood 246 mg/dL (70-110)
[2024-08-20 23:35] LABS: Glucose,Whole Blood 245 mg/dL (70-110)
[2024-08-21 05:27] LABS: Glucose,Whole Blood 243 mg/dL (70-110)
[2024-08-21 05:46] LABS: HCT 28.7 % (39.6-50.0); HGB 9.5 g/dL (13.0-17.0); MCH 29.4 pg (27.0-32.0); MCHC 33.1 g/dL (32.0-37.0); MCV 88.9 fL (80.0-97.0); Mean Platelet Volume 11.2 fL (9.5-12.2); Platelet Count 168 10*3/uL (140-440); RBC 3.23 10*6/uL (4.40-5.60); RDW 19.2 % (11.5-14.5)
[2024-08-21 05:47] LABS: ABG Base Excess 3.4 mmol/L; ABG HCO3 28 mmol/L (21-25); ABG Oxygen Saturation 99.5 % (94-97); ABG PCO2 42 mmHg (35-45); ABG PH 7.44 (7.35-7.45); ABG PO2 108 mmHg (83-108); ABG TCO2 29 mmol/L (19-24)
--- NOTE | 2024-08-21 05:48 | XR ---
EXAMINATION TYPE: XR chest 1V portable DATE OF EXAM: 08/21/2024 CLINICAL INDICATION: Male, 78 years old with history of mechanical ventilation, progress study. TECHNIQUE: Single AP portable semiupright view of the chest is obtained. COMPARISON: Chest x-ray from one day earlier and older studies. FINDINGS: Stable endotracheal and orogastric tubes. Background chronic parenchymal changes bilaterally. Multifocal increased opacities bilaterally are re demonstrated. Cardiac silhouette size is stable and within normal limits with atherosclerotic thoraci c aorta redemonstrated. Osseous structures are intact. IMPRESSION: Subtle bilateral multifocal acute infiltrates and/or edema on background chronic parenchy mal fibrosis and small bilateral pleural effusions. No significant change from one day earlier. [facility], , 08/21/2024 5:46 AM
[2024-08-21 05:49] LABS: Allen Test Performed? No
[2024-08-21 05:59] LABS: African American GFR (CKD) >90 (>60 ml/min/1.73 sqM); Anion Gap 5 mmol/L; Blood Urea Nitrogen 50 mg/dL (9-20); Calcium 8.8 mg/dL (8.4-10.2); Carbon Dioxide 27 mmol/L (22-30); Chloride 114 mmol/L (98-107); Glucose 237 mg/dL (74-99); Non-African American GFR(CKD) >90 (>60 ml/min/1.73 sqM); Sodium 146 mmol/L (137-145)
[2024-08-21 06:22] LABS: Band Neutrophils % 21 %; Lymphocytes # (M) 0.72 k/uL (1.0-4.8); Monocytes # (M) 0.36 k/uL (0-1.0); Myelocytes # (M) 0.72 k/uL (0); Myelocytes % 2 %; Neutrophils # (M) 34.29 k/uL (1.3-7.7); Neutrophils % (M) 74 %; Nucleated Red Blood Cells 0 /100 WBC (0-0); Total Cells Counted 200
[2024-08-21 09:23] VITALS: TEMP 97.7
[2024-08-21] MEDS ORDERED: MORPHINE SULFATE 2 MG/ML SYRINGE IVP PRN (09:48)
--- NOTE | 2024-08-21 10:27 | P.PN ---
Subjective 78-year-old male patient with past medical tree significant for COPD, aortic aneurysm who presented to ER with a complaint of acute onset abdominal pain and back pain. Patient was afebrile in the ED, was tachycardic and hypotensive, required epinephrine drip. Was saturating 98% on 2 L. Patient denied any fever, chills, sore throat, productive cough, shortness of breath, chest pain, palpitations, dysuria urgency frequency weakness or numbness to extremities, diarrhea or constipation. WBCs were 15.6, hemoglobin 11.8, platelet 87. INR 1.1. Sodium 135 potassium 4.0 chloride 101 CO2 24 BUN 23 creatinine 0.45. Liver profile and lipase was u nremarkable. Patient was afebrile tachycardic and hypotensive, required epinephrine drip. Ultrasound showed probable ruptured AAA with pulsatile mass. CT angio showed a large 11.8 cm aneurysm with stranding concerning for rupture. Patient was taken to [facility] for emergent endovascular aortic repair. 08/14--patient was seen and examined today. Son at bedside. Patient feeling better. Afebrile, tachycardic with heart rate in the low 100s, tachypneic with respiratory rate 20, blood pressure is low 107/51. Patient denied any nausea vomiting abdominal pain, dizziness. Currently on 2 L oxygen. Was tachycardic overnight. No flatus. So far 5 units packed RBCs and 4 units of FFP transfusion. Hemoglobin currently stable. Vascular surgery following. ICU following. WBCs 20.1, hemoglobin 9.2, platelet 139. BUN 32, creatinine 0.96. 08/15--patient was seen and examined today. Patient had acute hypercapnic respiratory failure due to his advanced COPD yesterday, ICU was consulted and patient got intubated. Patient remains intubated on mechanical ventilation, on propofol, 40% FiO2 and PEEP of 5. Blood gases showed pH 7.25 with pCO2 38 and pO2 173. Repeat chest x-ray today showed adequate positioning of orotracheal tube. Chest x-ray showed multifocal infiltrates in addition to COPD. Patient also on vasopressorsLevophed and vasopressin. Patient's hemoglobin was 7.6, received another unit of packed RBCs today, total 6 units of packed RBCs so far. On IV fluids due to low blood pressure and decreased urine output. Echocardiogram yesterday showed hyperdynamic LV, moderate amount of pericardial effusion without tamponade. 08/16. Patient seen and examined. Blood work done today showed WBC 20.4, hemoglobin 9.8, platelet count 188, sodium 141, potassium 4.4, BUN 40, current 1.02, glucose 150 magnesium 2.4. Patient continues to be intubated, currently on FiO2 of 35%. Currently on vasopressin, Levophed. Continues to be on propofol. Son at the bedside, updated about patient's progress 08/17. Patient seen and examined.,Labs reviewed showed WBC 23.8, hemoglobin 9, platelet count 194, sodium 148, potassium 4.3 BUN 44, creatinine 1.09. Currently on propofol. Continues to be on vasopressors in the form of vasopressin and norepinephrine. 08/18. Patient seen and examined. Patient continues to be on mechanical ventilation. Surgery have been consulted for possible tracheostomy. Currently on tube feeding. 08/19 Patient remains in the ICU He remains on the vent Levophed dose is lowered to 0.02 today Consider sedation holiday. Patient opens eye however he does not follow command He was placed on D5W at 75 mL/h for hypernatremia as sodium today is 148. Will discuss with the family about plan 08/20 Patient remains intubated and sedated in the ICU He still on IV Solu-Medrol and Zosyn and D5W at 75 WBC is 30,000 while he is on steroids, hemoglobin 8.9 sodium slightly improving down to 146 but creatinine normal. pH remains low at 7.36 and pCO2 elevated at 50. Sputum cultures growing Pseudomonas patient already covered with Zosyn with chest x-ray showing bilateral infiltrate. Patient was made DNR Family meeting will be held tomorrow and family considering comfort care measures. 08/21 Patient still intubated in the ICU Still complaining from abdominal tenderness Is still getting IV Zosyn despite that his leukocytosis is up today to 36,000 Hemoglobin stable at 9.5. Sodium stable at 146 Remains on IV Solu-Medrol and D5W at 75 mL/h Prognosis remains poor. Family are also following with the critical care team with possible going for comfort care measures per staff Objective - Vital Signs Vital signs: Vital Signs Temp 97.7 F 08/21/24 08:00 Pulse 84 08/21/24 09:15 Resp 28 H 08/21/24 09:15 BP 94/55 08/21/24 04:30 Pulse Ox 100 08/21/24 09:15 FiO2 30 08/21/24 09:00 Intake & Output 08/20/24 08/21/24 08/21/24 18:59 06:59 18:59 Intake Total 2027.827 1233.992 306 Output Total 1145 1075 150 Balance 882.827 158.992 156 Weight 64 kg Intake: IV 868 1144 256 Dextrose 5%-0.45% NaCl 1, 525 975 150 000 ml @ 75 mls/hr IV . [id number] [facility] Rx#:[id number] Piperacillin-Tazobactam 3 200 100 .375 gm In Sodium Chloride 0.9% 100 ml @ 25 mls/hr IVPB Q8HR [facility] Rx# :[id number] Sodium Chloride 0.9% 1, 110 130 0 000 ml @ 10 mls/hr IV . Q24H [facility] Rx#:[id number] pressure bag 33 39 6 Intake, IV Titration 864.827 89.992 Amount Dextrose 5% in Water 1, 300 000 ml @ 75 mls/hr IV . [id number] [facility] Rx#:[id number] Norepinephrine 8 mg In 494.426 21.574 Sodium Chloride 0.9% 250 ml @ 0.03 MCG/KG/MIN 3. 152 mls/hr IV .Q24H [facility] Rx#:[id number] propofoL 1,000 mg In 70.401 68.418 Empty Bag 1 bag @ 15 MCG/ KG/MIN 4.887 mls/hr IV . [id number] [facility] Rx#:[id number] Tube Feeding 295 20 Other 30 Output: Urine 1145 1075 150 Other: Voiding Method Indwelling Catheter Indwelling Catheter Indwelling Catheter ABP, PAP, CO, CI - Last Documented Arterial Blood Pressure 106/46 - Exam -GENERAL: The patient is intubated and sedated HEENT: Pupils are round and equally reacting to light. EOMI. No scleral icterus. No conjunctival pallor. Normocephalic, atraumatic. No pharyngeal erythema. No thyromegaly. CARDIOVASCULAR: S1 and S2 present. No murmurs, rubs, or gallops. PULMONARY: Chest is clear to auscultation, no wheezing , no crackles. ABDOMEN: Soft, nontender, nondistended, normoactive bowel sounds. No palpable organomegaly. MUSCULOSKELETAL: No joint swelling or deformity. EXTREMITIES: No cyanosis, clubbing, or pedal edema. NEUROLOGICAL: Gross neurological examination did not reveal any focal deficits. SKIN: No rashes. no petechiae. - Labs CBC & Chem 7: 08/21/24 05:08/21/24 05:25 Labs: Abnormal Lab Results - Last 24 Hours (Table) 08/20/24 08/20/24 08/20/24 Range/Units 11:35 17:40 23:32 WBC (4.50-10.00) 10*3/uL RBC (4.40-5.60) 10*6/uL Hgb (13.0-17.0) g/dL Hct (39.6-50.0) % Immature Gran # (0.00-0.04) 10*3/uL Neutrophils # (Manual) (1.3-7.7) k/uL Lymphocytes # (Manual) (1.0-4.8) k/uL Myelocytes # (Manual) (0) k/uL ABG HCO3 (21-25) mmol/L ABG Total CO2 (19-24) mmol/L ABG O2 Saturation (94-97) % Hemoglobin (13.0-17.5) gm/dL Sodium (137-145) mmol/L Chloride (98-107) mmol/L BUN (9-20) mg/dL Creatinine (0.66-1.25) mg/dL Glucose (74-99) mg/dL POC Glucose (mg/dL) 280 H 246 H 245 H (70-110) mg/dL 08/21/24 08/21/24 08/21/24 Range/Units 05:25 05:25 05:25 WBC 36.10 H (4.50-10.00) 10*3/uL RBC 3.23 L (4.40-5.60) 10*6/uL Hgb 9.5 L (13.0-17.0) g/dL Hct 28.7 L (39.6-50.0) % Immature Gran # 1.25 H (0.00-0.04) 10*3/uL Neutrophils # (Manual) 34.29 H (1.3-7.7) k/uL Lymphocytes # (Manual) 0.72 L (1.0-4.8) k/uL Myelocytes # (Manual) 0.72 H (0) k/uL ABG HCO3 (21-25) mmol/L ABG Total CO2 (19-24) mmol/L ABG O2 Saturation (94-97) % Hemoglobin (13.0-17.5) gm/dL Sodium 146 H (137-145) mmol/L Chloride 114 H (98-107) mmol/L BUN 50 H (9-20) mg/dL Creatinine 0.59 L (0.66-1.25) mg/dL Glucose 237 H (74-99) mg/dL POC Glucose (mg/dL) 243 H (70-110) mg/dL 08/21/24 Range/Units 05:46 WBC (4.50-10.00) 10*3/uL RBC (4.40-5.60) 10*6/uL Hgb (13.0-17.0) g/dL Hct (39.6-50.0) % Immature Gran # (0.00-0.04) 10*3/uL Neutrophils # (Manual) (1.3-7.7) k/uL Lymphocytes # (Manual) (1.0-4.8) k/uL Myelocytes # (Manual) (0) k/uL ABG HCO3 28 H (21-25) mmol/L ABG Total CO2 29 H (19-24) mmol/L ABG O2 Saturation 99.5 H (94-97) % Hemoglobin 9.0 L (13.0-17.5) gm/dL Sodium (137-145) mmol/L Chloride (98-107) mmol/L BUN (9-20) mg/dL Creatinine (0.66-1.25) mg/dL Glucose (74-99) mg/dL POC Glucose (mg/dL) (70-110) mg/dL Assessment and Plan Assessment: Ruptured aortic aneurysm: Hemorrhagic shock: Acute blood loss anemia: Retroperitoneal hematoma Acute hypoxic hypercapnic respiratory failure requiring intubation mechanical ventilation: Advanced COPD: Acute COPD exacerbation: Pneumonia Hypertension BPH Plan: Continue with IV Solu-Medrol 60 mg Continue with Zosyn Continue with D5W at 75 and monitor sodium level Pulmonary/clinic care team Hematology/oncology team GI and DVT prophylaxis Prognosis is guarded
[2024-08-21] MEDS: MORPHINE SULFATE 4 MG/ML SYRINGE IVP PRN (10:44)
[2024-08-21] MEDS: LORazepam 1 MG/0.5 ML VIAL IV PRN (10:44)
[2024-08-21] MEDS: SCOPOLAMINE 1 MG/72 HR PATCH TRANSDERM SCH (10:45)
[2024-08-21] MEDS: ATROPINE OPHTH SOLN 1% 5ML BTL SUBLINGUAL PRN (11:04)
[2024-08-21] MEDS: MORPHINE SULFATE 100 MG in SODIUM CHLORIDE 0.9% 90 ML IV SCH (11:58)
--- NOTE | 2024-08-21 12:55 | P.PN ---
Subjective Progress Note Date: 08/21/24 Principal diagnosis: Acute abdominal aortic aneurysm rupture and hemorrhagic shock This is a 78-year-old male patient who presented to the emergency department with acute abdominal pain. The patient underwent a CTA of the aorta with runoff and the patient was found to have an i infrarenal abdominal aortic aneurysm measuring 11.4 x 11.8 cm in size and prominent concentric atherosclerotic plaque and adjacent stranding. This was consistent with rupture with a large hematoma in the retroperitoneal space. Emergent vascular consultation was obtained and the patient was taken to the Registered Medical Assistant and the patient underwent a endovascular aortic repair with AFX II device and the patient also underwent percutaneous transluminal balloon angioplasty of bilateral common iliac arteries, percutaneous transluminal stent placement in the bilateral common iliac arteries due to severe stenosis and percutaneous closure of the bilateral femoral arteries with Perclose x 2 and left Angio-Seal. Postop, the patient was brought into the intensive care unit. At the time of his arrival, the patient was on 6 L of oxygen simple mask. His cardiac rhythm is sinus although the patient was still tachycardic and borderline hypotensive with a BP of 84/50. Noted, in the emergency the patient was initially started on esmolol drip. Subsequently, due to hypotension, the drip was discontinued and the patient was given a combination of Kwesi-Synephrine and vasopressin. At the time of arrival to the ICU, the patient was on no pressors. The patient has already received a total of 4 units of packed RBC and 4 units of fresh frozen plasma. Pulses in the lower extremities are diminished at the present. The patient also has a left IJ cordis and an arterial line in place. Awake and alert and communicating. The white cell count was at 15.6 with a hemoglobin 11.8 at time of admission and a platelet count of 421. Patient also had a sodium level of 135, BUN of 23 and a creatinine of 0.4. Normal LFTs. Normal amylase and lipase. Troponins were negative. The patient has no chest pain. No significant respiratory distress at this point in time. He is known to have COPD with an FEV1 of 38 to 42% of predicted and chronic hypoxic respiratory failure. He is also known to have hypertension hyperlipidemia and previous history of cutaneous T-cell lymphoma, mycosis fungoides. On 08/14/2024, patient is being seen for a follow-up. Earlier this morning, the patient's breathing was quite labored even at rest. He was increasingly bronchospastic and wheezy. The same time, he was still awake and alert and communicating. He was on oxygen 2 L/min nasal cannula. He was given bronchodilators and she was also started on steroids. Later on, by afternoon, the patient became more obtunded and lethargic and weak. At that point, a blood gas was done that showed a pH of 7.1 with a pCO2 of 72 and pO2 of 156 and based on that, the patient was intubated and placed on the mechanical ventilator. He is currently on assist-control mode of mechanical ventilation at rate of 20, tidal volume of 350, FiO2 of 100% with a PEEP of 5. Awaiting follow-up blood gases. Postintubation chest x-ray showed COPD with bilateral hyperinflation. Orogastric tube was in high position needed to be advanced. Orotracheal tube was in satisfactory position. The patient has subtle scattered opacities bilate rally. Postintubation, the patient encountered significant hypotension. The patient was immediately given 2 L of IV fluids nasal cannula and the patient was started on norepinephrine for blood pressure support. Noted, prior to that, the patient was on no pressors and the patient was doing well emergency at rate of 100 cc an hour. He continues to be sinus tachycardia. Repeat blood work was do ne and the patient white cell count of 20.7 with a hemoglobin of 8.1 and a platelet count of 143. Hemoglobin has remained stable at 8.1. BUN 32 with a creatinine of 0.9 and sodium levels at 139 and potassium level is at 4.4. Pulses lower extremities are diminished. They are obtainable by Doppler signal. On 08/15/2024, the patient is being seen for a follow-up. As stated, the patient was intubated yesterday due to acute hypercapnic respiratory failure due to his advanced COPD. This morning, the patient remains intubated on mechanical ventilator. On propofol running at 50 mcg/kg/min. He is on assist-control mode of mechanical ventilation at rate of 28, tidal volume of 350, FiO2 of 40% and a PEEP of 5. Blood gas showed a pH of 7.25 with a pCO2 of 38 and pO2 of 173. The follow-up chest x-ray from today shows adequate positioning of the orotracheal tube. The patient also has stable multifocal acute infiltrates in the background in addition to COPD and some leukocytosis. The patient was empirically started on IV Zosyn. Also, the patient postintubation, the patient became hypotensive and developed an acute kidney injury. This morning, the patient remains on pressors and norepinephrine running at 0.29 mcg/kg/min and patient is also on physiologic dose of vasopressin at 0.03 units. Hemoglobin is at 7.6 and the patient will be given another unit of packed RBC per vascular s urgery recommendations. Urine output is in order of 30 to 50 cc an hour. The patient remains on normal saline at rate of 150 cc an hour. He is not in significant positive fluid balance of at least 5.7 L for yesterday of 4.0 L the day prior. Possible lower extremity are diminished at 0 obtainable by Doppler signals. The white cell count is 14.7, hemoglobin 9.6 and a platelet count of 185. S the CBC was obtained following the packed RBC transfusion. Sodium level is at 144, potassium is at 4.4, BUN 42 with a creatinine 1.35 and the patient has developed an acute kidney injury. The patient also has a component of Bettina E acidosis with a serum bicarb of 17. LFTs are normal. Total protein is at 4.4 with an albumin level of 2.4. Echocardiogram was completed on 08/14/2024 and the patient was found to have hyperdynamic LV, moderate amount of pericardial effusion without tamponade physiology. No significant valvular abnormalities noted. The patient also has an orogastric tube in place. There is some greenish bilious material coming of the OG tube and this has been ongoing in the order of 300 cc over the past 12 hours. No indication for an upper GI bleed. On 08/16/2024, the patient is being seen in follow-up in intensive care unit. This morning, the patient remains on propofol which is running at 25 mcg/kg/min. The patient is calm and comfortable and synchronous on mechanical ventilator. The patient remains on assist-control rate of 28, tidal volume of 350, FiO2 35% with a PEEP of 5. Blood gas showed a pH of 7.26 with a pCO2 of 38 and pO2 of 126. Chest x-ray from today shows small left-sided pleural effusion, right basilar atelectasis and there are some signs of early volume overload. Clinically, the patient is significantly in a positive fluid balance and volume overload. The patient has developed scrotal and bilateral lower and upper extremity edema. There is also some oozing of fluid from the surgical sites in the groins bilaterally. Fluid balance has been +9.2 L over the past 24 hours. Remains on NS at a rate of 75 cc an hour. Remains on pressors and the patient was on norepinephrine at 0.21 mcg/kg/min and this was reduced down to 0.1 mcg and the patient remains on vasopressin physiologic dose. Urine output is order of 50 to 75 cc an hour. Fluid balance +9 L at least over the past 24 hours. Afebrile. White cell count of 20.4 and the patient is currently on empiric antibiotic coverage with IV Zosyn. Hemoglobin is 9.8 and a platelet count of 188. BUN is 40 with a creatinine of 1.02 and serum bicarbonate 15 with an anion gap of 11. Glucose at 190. The patient remains n.p.o. as the patient was having increased output from the NG tube. The output has improved over the past 12 hours and the patient will be started or given a trial of enteral feeding for nutritional support. On 08/17/2024, the patient remains intubated on mechanical ventilator. This morning he is sedated on propofol running at 20 mcg/kg/min. He is on assist-con trol mode of mechanical ventilation at rate of 28, tidal volume of 350, FiO2 35% with a PEEP of 5. Blood gas showed pH of 7.28 with a pCO2 of 41 and pO2 124. He was started on vital HP at rate of 10 cc an hour. 2 bowel movements already. Chest x-ray from today shows development of small bilateral pleural effusions left more than right. Catheters are all in good location. The patient remains on pressors. Norepinephrine running at 0.12 mcg/kg/min. Vasopressin physiologic dose. Fluid balance is positive for 62 cc over the past 24 hours. Less bronchospastic and wheezy on examination with a peak airway pressure of 27. The white cell count is 23, hemoglobin is 9 and a platelet count of 194. The sodium level is at 148, BUN is 44 with a creatinine of 1.09. Potassium level is at 4.3. Metabolic acidosis also improving and the serum bicarb is up to 19. Remains on empiric antibiotic coverage with IV Zosyn. No other significant events overnight. Patient was seen today on 08/18/2024, remains in the ICU intubated and mechanically ventilated patient is on assist-control rate of 28 tidal volume 350 FiO2 35% and PEEP of 5 ABG showed a pO2 of 119 pCO2 47 pH of 7.29. Hence no changes were made in vent settings. Patient is requiring pressors in the form of norepinephrine at 0.03 mcg/kg/min he is also on vasopressin at 0.03 units/h. On propofol at 25 mcg/kg/min patient has received a total of 6 units of packed RBCs and 4 units of fresh frozen plasma since admission. Sputum is positive for Pseudomonas patient remains on Zosyn. Patient presented initially on 08/13 with abdominal aortic aneurysm rupture, requiring percutaneous endovascular aortic repair under ultrasound-guided access, percutaneous transluminal balloon angioplasty of bilateral common iliac arteries and percutaneous transluminal covered stent placement of bilateral common iliac arteries due to severe stenosis patient also had percutaneous closure of bilateral femoral arteries, right Perclose x 2 and left Angio-Seal. This was also done on 08/13/2024 by vascular surgery. Patient remains intubated mechanically ventilated, he is requiring propofol, not quite ready for weaning however I have asked the nurses to give the patient at least a sedation holiday today and address mental status obviously the patient is still hemodynamically unstable and not ready for full weaning. WBC count today is elevated at 28.6 hemoglobin 8.5 platelets are 187, basic metabolic profile is normal BUN is 49 creatinine 0.98. Microbiology rodrgiuez patient had Pseudomonas aeruginosa in the sputum. Sensitive to Zosyn, sensitive to cefepime and ciprofloxacin. Patient was reevaluated today on 08/19/2024, remains in the ICU, intubated and mechanically ventilated. Patient was given a trial of sedation interruption yesterday, could not assess mental status in spite of sedation interruption, patient would not make any purposeful movement would not follow commands, seems to be confused, and he was getting tachypneic and tachycardic, hence he had to be placed back on propofol. Today the patient remains on assist-control mode of mechanical ventilation rate of 28 tidal volume 350 FiO2 35% PEEP of 5 ABG showed a pO2 of 131 pCO2 45 pH of 7.37 patient is requiring norepinephrine at 0.02 mcg/kg/min he is on vasopressin he is on propofol at 25 mcg/kg/min. In addition the patient is receiving Zosyn he is also on D5W at 75 cc/h. Again off sedation the patient would open his eyes but did not follow any instructions or commands. Chest x-ray showed nonspecific chronic parenchymal changes and small left pleural effusion. Labs today showed leukocytosis with WBC of 35.72 sodium 148 potassium 3.9 BUN is 54 creatinine 0.72. Today I had a long discussion with his son at bedside, and discussed the different options with the son including the option of aggressive measures including tracheostomy and PEG tube placement we also discussed the option of comfort care measures as the patient has severe underlying COPD, and overall prognosis is extremely poor he will be difficult to wean, and clearly the son stated to me that his father would not have wanted tracheostomy or PEG tube placement no matter what. He seems to be inclined to consider comfort care measures in the next 2 days. Patient was changed to DNR CODE STATUS. As per his son's wishes. Patient was seen today , remains in the ICU, intubated and mechanically ventilated, on assist-control rate of 28 tidal volume 350 which I increased to 400 FiO2 30% PEEP of 5 ABG showed a pO2 of 104 pCO2 50 pH of 7.34. Remains on multiple drips including propofol 20 mcg/kg/min norepinephrine 0.9 mg/kg/min D5W which I changed to D5 4 5 at 75 cc/h remains on Zosyn. Chest x-ray is basically about the same, no changes noted. Labs were all reviewed, continues to have worsening leukocytosis with WBC count of 30.58 hemoglobin 8.9 basic metabolic profile is relatively normal sodium is down to 146 BUN is 51 creatinine 0.64. Patient is sedated, on propofol, however he will have a sedation interruption today and again assessment of mental status if possible. Seen today on 08/21/2024 patient remains in the ICU, intubated and mechanically ventilated, still requiring norepinephrine at 0.11 mcg/kg/min remains on propofol at 20 mcg/kg/min IV fluid at 75 cc/h patient remains intubated he is on assist-control rate of 28 tidal volume 400 FiO2 30% and PEEP of 5 ABG showed a pO2 of 108 pCO2 42 pH of 7.44. Patient continues to have worsening leukocytosis, low-grade fever, and supposedly the family is supposed to come in today and change patient to comfort care. That was agreed upon after I discussed his overall condition with the son 2 days ago. After sedation, patient was not responsive to any stimuli, opens eyes, he also became tachypneic and tachycardic and hypertensive, hence no further holding of sedation was done yesterday. WBC count today is 36.1 hemoglobin 9.5 electrolytes are normal sodium is 146, electrolytes otherwise are normal BUN is 50 creatinine 0.59. Chest x-ray is basically the same, showed no significant change. Subtle multifocal changes. Most likely chronic. Objective - Vital Signs Vital signs: Vital Signs Temp 97.7 F 08/21/24 08:00 Pulse 71 08/21/24 10:00 Resp 28 H 08/21/24 10:15 BP 94/55 08/21/24 04:30 Pulse Ox 100 08/21/24 10:15 FiO2 30 08/21/24 10:00 Intake & Output 08/20/24 08/21/24 08/21/24 18:59 06:59 18:59 Intake Total 2027.827 1233.992 490.151 Output Total 1145 1075 295 Balance 882.827 158.992 195.151 Weight 64 kg Intake: IV 868 1144 367 Dextrose 5%-0.45% NaCl 1, 525 975 255 000 ml @ 75 mls/hr IV . [id number] [facility] Rx#:[id number] Piperacillin-Tazobactam 3 200 100 .375 gm In Sodium Chloride 0.9% 100 ml @ 25 mls/hr IVPB Q8HR [facility] Rx# :[id number] Sodium Chloride 0.9% 1, 110 130 0 000 ml @ 10 mls/hr IV . Q24H [facility] Rx#:[id number] pressure bag 33 39 12 Intake, IV Titration 864.827 89.992 73.151 Amount Dextrose 5% in Water 1, 300 000 ml @ 75 mls/hr IV . [id number] [facility] Rx#:[id number] Morphine Sulfate 100 mg 1.3 In Sodium Chloride 0.9% 90 ml @ 2 MG/HR 2 mls/hr IV .Q24H [facility] Rx#: [id number] Norepinephrine 8 mg In 494.426 21.574 43.343 Sodium Chloride 0.9% 250 ml @ 0.03 MCG/KG/MIN 3. 152 mls/hr IV .Q24H [facility] Rx#:[id number] propofoL 1,000 mg In 70.401 68.418 28.508 Empty Bag 1 bag @ 15 MCG/ KG/MIN 4.887 mls/hr IV . [id number] [facility] Rx#:[id number] Tube Feeding 295 20 Other 30 Output: Urine 1145 1075 295 Other: Voiding Method Indwelling Catheter Indwelling Catheter Indwelling Catheter ABP, PAP, CO, CI - Last Documented Arterial Blood Pressure 106/49 - Exam HEENT: Pupils are round and equally reacting to light. EOMI. No scleral icterus. No conjunctival pallor. Normocephalic, atraumatic. No pharyngeal erythema. No thyromegaly. Head: Atraumatic, normocephalic CARDIOVASCULAR: S1 and S2 present. No murmurs, rubs, or gallops. PULMONARY: Crackles at the bases with rhonchi. Symmetrical chest expansion. ABDOMEN: Nontender nonboggy no rebound no guarding MUSCULOSKELETAL: No deformities, EXTREMITIES: No cyanosis, clubbing, or pedal edema. Patient does have significant scrotal swelling and upper extremities edema. NEUROLOGICAL: Could not assess, patient is sedated SKIN: No rashes. - Labs CBC & Chem 7: 08/21/24 05:25 08/21/24 05:25 Labs: Abnormal Lab Results - Last 24 Hours (Table) 08/20/24 08/20/24 08/21/24 Range/Units 17:40 23:32 05:25 WBC 36.10 H (4.50-10.00) 10*3/uL RBC 3.23 L (4.40-5.60) 10*6/uL Hgb 9.5 L (13.0-17.0) g/dL Hct 28.7 L (39.6-50.0) % Immature Gran # 1.25 H (0.00-0.04) 10*3/uL Neutrophils # (Manual) 34.29 H (1.3-7.7) k/uL Lymphocytes # (Manual) 0.72 L (1.0-4.8) k/uL Myelocytes # (Manual) 0.72 H (0) k/uL ABG HCO3 (21-25) mmol/L ABG Total CO2 (19-24) mmol/L ABG O2 Saturation (94-97) % Hemoglobin (13.0-17.5) gm/dL Sodium (137-145) mmol/L Chloride (98-107) mmol/L BUN (9-20) mg/dL Creatinine (0.66-1.25) mg/dL Glucose (74-99) mg/dL POC Glucose (mg/dL) 246 H 245 H (70-110) mg/dL 08/21/24 08/21/24 08/21/24 Range/Units 05:25 05:25 05:46 WBC (4.50-10.00) 10*3/uL RBC (4.40-5.60) 10*6/uL Hgb (13.0-17.0) g/dL Hct (39.6-50.0) % Immature Gran # (0.00-0.04) 10*3/uL Neutrophils # (Manual) (1.3-7.7) k/uL Lymphocytes # (Manual) (1.0-4.8) k/uL Myelocytes # (Manual) (0) k/uL ABG HCO3 28 H (21-25) mmol/L ABG Total CO2 29 H (19-24) mmol/L ABG O2 Saturation 99.5 H (94-97) % Hemoglobin 9.0 L (13.0-17.5) gm/dL Sodium 146 H (137-145) mmol/L Chloride 114 H (98-107) mmol/L BUN 50 H (9-20) mg/dL Creatinine 0.59 L (0.66-1.25) mg/dL Glucose 237 H (74-99) mg/dL POC Glucose (mg/dL) 243 H (70-110) mg/dL Assessment and Plan Assessment: Impression: Abdominal aortic aneurysm rupture, status post repair, postoperative day #8 the patient underwent emergent endovascular aortic repair with a AFX 2 device. The patient also underwent percutaneous balloon angioplasty of bilateral common iliac arteries and stent placement in the bilateral common iliacs for severe vascular disease. Hemorrhagic shock secondary to above. Required a total of 6 units of packed RBCs and 4 units of fresh frozen plasma Acute hypercapnic respiratory failure with secondary diminished level of consciousness secondary COPD exacerbation. Acute blood loss anemia, awaiting follow-up hemoglobin. Volume overload with significant positive fluid balance and increasing edema in upper and lower extremities and scrotal edema. Acute kidney injury, likely secondary to hypotension/postsurgical ATN, recovered and the patient renal function has normalized Non-anion gap metabolic acidosis, improving and serum bicarb is up to 19 Mild hyponatremia, hypochloremic COPD, severe with an FEV1 of 38 to 42% of predicted Chronic hypoxic respiratory failure, secondary to COPD History of cutaneous T-cell lymphoma/mycosis fungoides Hypertension Hyperlipidemia BPH Chronic smoker Recommendation: Continue ventilatory support Continue hemodynamic support/norepinephrine Continue nutritional support/enteral feeding Continue Zosyn/antibiotic for pseudomonal coverage in the sputum Continued GI and DVT prophylaxis Continue bronchodilators Continue IV Solu-Medrol Patient will most likely go to comfort care sometime later today when family shows up according to his son based on previous conversation. Change CODE STATUS to DNR Remains extremely ill with poor prognosis. Will continue to follow Critical care time is 32 minutes Time with Patient: Greater than 30
[2024-08-21 13:50] VITALS: PULSE 112; RESP 16
[2024-08-21] MEDS ORDERED: LORazepam 2 MG/ML INJ IV PRN (14:17)
[2024-08-21 14:45] VITALS: BMI 22.1
== END 2024-08-21 18:15 | disposition expired | DRG 268 ==
LOC: EC 04:43 → 2SICU 06:51
PROVIDERS: ADMIT Hospitalist; ATTEND Hospitalist
PROC: 30233N1 Transfusion of Nonautologous Red Blood Cells into Peripheral Vein, Percutaneous Approach (ICD-10-PCS; 2024-08-13)
PROC: 30233K1 Transfusion of Nonautologous Frozen Plasma into Peripheral Vein, Percutaneous Approach (ICD-10-PCS; 2024-08-13)
PROC: 6A550Z0 Pheresis of Erythrocytes, Single (ICD-10-PCS; 2024-08-13)
PROC: 04V03DZ Restriction of Abdominal Aorta with Intraluminal Device, Percutaneous Approach (ICD-10-PCS; principal; 2024-08-13 07:00)
PROC: 047D3DZ Dilation of Left Common Iliac Artery with Intraluminal Device, Percutaneous Approach (ICD-10-PCS; 2024-08-13 07:00)
PROC: 047C3DZ Dilation of Right Common Iliac Artery with Intraluminal Device, Percutaneous Approach (ICD-10-PCS; 2024-08-13 07:00)
PROC: 0BH18EZ Insertion of Endotracheal Airway into Trachea, Via Natural or Artificial Opening Endoscopic (ICD-10-PCS; 2024-08-14)
PROC: 5A1955Z Respiratory Ventilation, Greater than 96 Consecutive Hours (ICD-10-PCS; 2024-08-14)
PROC: 3E033XZ Introduction of Vasopressor into Peripheral Vein, Percutaneous Approach (ICD-10-PCS; 2024-08-14)
DX: I71.33 Infrarenal abdominal aortic aneurysm, ruptured (principal); J18.9 Pneumonia, unspecified organism; J96.22 Acute and chronic respiratory failure with hypercapnia; N17.0 Acute kidney failure with tubular necrosis; J96.21 Acute and chronic respiratory failure with hypoxia; K68.3 Retroperitoneal hematoma; I31.39 Other pericardial effusion (noninflammatory); R57.8 Other shock; C84.A0 Cutaneous T-cell lymphoma, unspecified, unspecified site; R57.1 Hypovolemic shock; J44.1 Chronic obstructive pulmonary disease with (acute) exacerbation; I70.8 Atherosclerosis of other arteries; I10 Essential (primary) hypertension; J44.0 Chronic obstructive pulmonary disease with (acute) lower respiratory infection; E87.4 Mixed disorder of acid-base balance; E87.0 Hyperosmolality and hypernatremia; E87.1 Hypo-osmolality and hyponatremia; Z68.1 Body mass index [BMI] 19.9 or less, adult; D62 Acute posthemorrhagic anemia; Z51.5 Encounter for palliative care; Z66 Do not resuscitate; B96.5 Pseudomonas (aeruginosa) (mallei) (pseudomallei) as the cause of diseases classified elsewhere; N40.0 Benign prostatic hyperplasia without lower urinary tract symptoms; F17.210 Nicotine dependence, cigarettes, uncomplicated; E78.5 Hyperlipidemia, unspecified; E87.70 Fluid overload, unspecified; N50.89 Other specified disorders of the male genital organs; E87.8 Other disorders of electrolyte and fluid balance, not elsewhere classified; Z79.51 Long term (current) use of inhaled steroids; Z79.52 Long term (current) use of systemic steroids; Z79.899 Other long term (current) drug therapy
CPT/HCPCS: 34705; 36415; 36430; 37221; 71045; 71275; 75635; 80048; 80053; 82150; 82805; 83605; 83690; 83735; 84484; 85025; 85027; 85384; 85610; 85730; 86850; 86900; 86901; 86920; 87040; 87070; 87077; 87186; 87205; 93005; 93306; 94002; 94003; 94640; 96365; 96375; 99291